=== PATIENT | female | born 1945 | race Caucasian/White ===

== ENCOUNTER 2020-06-05 09:03 | Outpatient (REF) | payer MEDICARE, OTHER, SELFPAY ==
[2020-06-05 10:37] LABS: MANUAL DIFF FLAG NO
[2020-06-05 10:47] LABS: Basophils Absolute Auto 0.1 X10*3/uL (0.0-0.2); Basophils Percent Auto 1.7 % (0-2); Eosinophils Absolute Auto 0.1 X10*3/uL (0.0-0.4); Eosinophils Percent Auto 1.4 % (0-4); Hematocrit 39.7 % (37-47); Hemoglobin 13.1 g/dl (12.0-16.0); Imm Gran Abs Auto 0.01 X10*3/uL (0.00-0.03); Imm Gran Pct Auto 0.2 % (0.0-0.4); Lymphocytes Absolute Auto 1.6 X10*3/uL (1.2-4.9); Mean Corpuscular Hemoglobin 31.6 pg (27.0-33.0); Mean Corpuscular Volume 95.9 fL (80-98); Mean Platelet Volume 10.1 fL (9.4-12.3); Monocytes Absolute Auto 0.4 X10*3/uL (0.1-1.2); Monocytes Percent Auto 7.9 % (2-11); Neutrophils Percent Auto 57.8 % (45-73); Platelet Count 273 X10*3/uL (160-400); Red Blood Count 4.14 X10*6/uL (4.20-5.50); Red Cell Distribution Width 12.4 % (11.0-16.0); White Blood Count 5.2 X10*3/uL (4.8-10.8)
[2020-06-05 10:50] LABS: Estimated Average Glucose 97 mg/dL
[2020-06-05 11:24] LABS: Alanine Aminotransferase 16 U/L (0-31); Albumin Level 3.9 g/dL (3.5-5.0); Alkaline Phosphatase 85 U/L (39-117); Anion Gap 10 (12-20); Aspartate Amino Transferase 25 U/L (5-31); Bilirubin Total 0.6 mg/dL (0.0-1.0); Blood Urea Nitrogen 13 mg/dL (9-16); Calcium 8.6 mg/dL (8.4-10.2); Carbon Dioxide 26 mmol/L (22-29); Chloride 108 mmol/L (96-108); Cholesterol 234 mg/dL; Estimated Glomerular Filt Rate > 60; Glucose Fasting 89 mg/dL (60-99); HDL Cholesterol 66 mg/dL; LDL Cholesterol Calculated 156 mg/dl; Potassium 4.4 mmol/l (3.3-5.1); Sodium 140 mmol/L (135-145); Total Protein 6.5 g/dL (6.5-8.0); Triglycerides 64 mg/dL
[2020-06-05 11:27] LABS: Erythrocyte Sedimentation Rate 6 MM/HR (0-20)
[2020-06-05 11:48] LABS: Folate 19.7 ng/mL (> or = 4.0); Vitamin B12 577 pg/mL (200-900)
== END 2020-06-05 09:04 | disposition home or self-care (01) ==
LOC: HO.LAB 09:03
PROVIDERS: PCP Internal Medicine Medical Oncology; Visit Provider Internal Medicine Medical Oncology
DX: M54.16 Radiculopathy, lumbar region (principal); M85.80 Other specified disorders of bone density and structure, unspecified site; E78.5 Hyperlipidemia, unspecified; I47.1 Supraventricular tachycardia; J45.31 Mild persistent asthma with (acute) exacerbation
CPT/HCPCS: 36415; 80053; 80061; 82607; 82746; 83036; 85025; 85652

== ENCOUNTER 2020-09-10 13:18 | Outpatient (REF) | payer MEDICARE, OTHER, SELFPAY ==
[2020-09-11 04:20] LABS: SARS COV2 IgG Negative (Negative)
== END 2020-09-10 13:19 | disposition home or self-care (01) ==
LOC: HO.LAB 13:18
PROVIDERS: PCP Internal Medicine Medical Oncology; Visit Provider Internal Medicine Medical Oncology
DX: Z01.84 Encounter for antibody response examination (principal)
CPT/HCPCS: 36415; 86769

== ENCOUNTER 2020-09-13 10:00 | Outpatient (REF) | payer MEDICARE, OTHER, SELFPAY ==
[2020-09-13 11:18] LABS: MANUAL DIFF FLAG NO
[2020-09-13 11:32] LABS: Basophils Absolute Auto 0.1 X10*3/uL (0.0-0.2); Basophils Percent Auto 1.4 % (0-2); Eosinophils Absolute Auto 0.1 X10*3/uL (0.0-0.4); Eosinophils Percent Auto 1.4 % (0-4); Hematocrit 42.2 % (37-47); Hemoglobin 13.8 g/dl (12.0-16.0); Imm Gran Abs Auto 0.03 X10*3/uL (0.00-0.03); Imm Gran Pct Auto 0.4 % (0.0-0.4); Lymphocytes Percent Auto 25.4 % (20-40); Mean Corpuscular HGB Conc 32.7 g/dl (31.0-35.0); Mean Corpuscular Hemoglobin 31.3 pg (27.0-33.0); Mean Corpuscular Volume 95.7 fL (80-98); Monocytes Absolute Auto 0.5 X10*3/uL (0.1-1.2); Monocytes Percent Auto 6.2 % (2-11); Neutrophils Absolute Auto 5.2 X10*3/uL (2.0-8.3); Neutrophils Percent Auto 65.2 % (45-73); Platelet Count 333 X10*3/uL (160-400); Red Blood Count 4.41 X10*6/uL (4.20-5.50); Red Cell Distribution Width 11.9 % (11.0-16.0); White Blood Count 7.9 X10*3/uL (4.8-10.8)
[2020-09-13 12:04] LABS: Alanine Aminotransferase 17 U/L (0-31); Alkaline Phosphatase 99 U/L (39-117); Anion Gap 13 (12-20); Aspartate Amino Transferase 24 U/L (5-31); Bilirubin Total 0.6 mg/dL (0.0-1.0); Blood Urea Nitrogen 12 mg/dL (9-16); Calcium 8.9 mg/dL (8.4-10.2); Carbon Dioxide 26 mmol/L (22-29); Chloride 104 mmol/L (96-108); Cholesterol 224 mg/dL; Estimated Glomerular Filt Rate > 60; Glucose Fasting 82 mg/dL (60-99); HDL Cholesterol 58 mg/dL; LDL Cholesterol Calculated 155 mg/dl; Potassium 5.4 mmol/l (3.3-5.1); Sodium 138 mmol/L (135-145); Total Protein 7.1 g/dL (6.5-8.0); Triglycerides 56 mg/dL
== END 2020-09-13 10:01 | disposition home or self-care (01) ==
LOC: HO.LAB 10:00
PROVIDERS: Visit Provider Internal Medicine Medical Oncology
DX: I47.1 Supraventricular tachycardia (principal); M85.80 Other specified disorders of bone density and structure, unspecified site; J45.31 Mild persistent asthma with (acute) exacerbation; E78.5 Hyperlipidemia, unspecified; M54.16 Radiculopathy, lumbar region
CPT/HCPCS: 36415; 80053; 80061; 85025

== ENCOUNTER 2020-09-27 06:28 | Outpatient (REF) | payer MEDICARE, OTHER, SELFPAY ==
--- NOTE | 2020-09-27 | XR_ITS ---
EXAMINATION: XR CHEST CLINICAL INFORMATION: Mild persistent asthma with acute exacerbation COMPARISON: 11/28/2019 TECHNIQUE: 2 views of the chest were obtained. FINDINGS: Lung volumes are symmetric. No focal consolidation bilaterally. Biapical scarring is noted. No evidence of pneumothorax, pleural effusion, or pulmonary edema. The cardiomediastinal contour is unremarkable. No acute osseous findings are seen. XR/XR chest 2V IMPRESSION: No acute cardiopulmonary findings.
== END 2020-09-27 06:29 | disposition home or self-care (01) ==
LOC: HO.XRAY 06:28
PROVIDERS: Visit Provider Internal Medicine Medical Oncology
DX: J45.31 Mild persistent asthma with (acute) exacerbation (principal); R06.02 Shortness of breath
CPT/HCPCS: 71046

== ENCOUNTER 2021-02-19 08:38 | Outpatient (REF) | payer MEDICARE, OTHER, SELFPAY ==
[2021-02-19 09:59] LABS: MANUAL DIFF FLAG NO
[2021-02-19 10:04] LABS: Basophils Absolute Auto 0.1 X10*3/uL (0.0-0.2); Basophils Percent Auto 1.3 % (0-2); Eosinophils Absolute Auto 0.1 X10*3/uL (0.0-0.4); Eosinophils Percent Auto 2.1 % (0-4); Hematocrit 40.6 % (37-47); Imm Gran Abs Auto 0.02 X10*3/uL (0.00-0.03); Imm Gran Pct Auto 0.3 % (0.0-0.4); Lymphocytes Percent Auto 32.9 % (20-40); Mean Corpuscular Hemoglobin 30.1 pg (27.0-33.0); Mean Platelet Volume 10.2 fL (9.4-12.3); Monocytes Absolute Auto 0.5 X10*3/uL (0.1-1.2); Monocytes Percent Auto 8.2 % (2-11); Neutrophils Absolute Auto 3.3 X10*3/uL (2.0-8.3); Neutrophils Percent Auto 55.2 % (45-73); Platelet Count 309 X10*3/uL (160-400); Red Blood Count 4.32 X10*6/uL (4.20-5.50); Red Cell Distribution Width 11.9 % (11.0-16.0); White Blood Count 6.1 X10*3/uL (4.8-10.8)
[2021-02-19 10:30] LABS: Alanine Aminotransferase 11 U/L (0-31); Albumin Level 3.9 g/dL (3.5-5.0); Alkaline Phosphatase 90 U/L (39-117); Anion Gap 11 (12-20); Aspartate Amino Transferase 23 U/L (5-31); Bilirubin Total 0.5 mg/dL (0.0-1.0); Blood Urea Nitrogen 15 mg/dL (9-16); Calcium 9.3 mg/dL (8.4-10.2); Carbon Dioxide 26 mmol/L (22-29); Chloride 108 mmol/L (96-108); Cholesterol 244 mg/dL; Estimated Glomerular Filt Rate > 60; Glucose Fasting 86 mg/dL (60-99); HDL Cholesterol 67 mg/dL; LDL Cholesterol Calculated 166 mg/dl; Sodium 140 mmol/L (135-145); Triglycerides 58 mg/dL
== END 2021-02-19 08:39 | disposition home or self-care (01) ==
LOC: HO.10HDL 08:38
PROVIDERS: PCP Internal Medicine Medical Oncology; Visit Provider Internal Medicine Medical Oncology
DX: E78.5 Hyperlipidemia, unspecified (principal); J45.31 Mild persistent asthma with (acute) exacerbation; M15.3 Secondary multiple arthritis; M54.16 Radiculopathy, lumbar region
CPT/HCPCS: 36415; 80053; 80061; 85025

== ENCOUNTER 2021-09-19 06:54 | Outpatient (REF) | payer MEDICARE, OTHER, SELFPAY ==
[2021-09-19 07:09] LABS: MANUAL DIFF FLAG NO
[2021-09-19 07:39] LABS: Basophils Absolute Auto 0.1 X10*3/uL (0.0-0.2); Basophils Percent Auto 1.1 % (0-2); Eosinophils Absolute Auto 0.2 X10*3/uL (0.0-0.4); Eosinophils Percent Auto 2.4 % (0-4); Hematocrit 41.5 % (37.0-47.0); Hemoglobin 13.6 g/dl (12.0-16.0); Imm Gran Abs Auto 0.02 X10*3/uL (0.00-0.03); Imm Gran Pct Auto 0.3 % (0.0-0.4); Lymphocytes Absolute Auto 2.3 X10*3/uL (1.2-4.9); Lymphocytes Percent Auto 29.2 % (20-40); Mean Corpuscular HGB Conc 32.8 g/dl (31.0-35.0); Mean Corpuscular Hemoglobin 30.7 pg (27.0-33.0); Mean Corpuscular Volume 93.7 fL (80.0-98.0); Monocytes Absolute Auto 0.6 X10*3/uL (0.1-1.2); Monocytes Percent Auto 7.5 % (2-11); Neutrophils Absolute Auto 4.7 x10*3/uL (2.0-8.3); Neutrophils Percent Auto 59.5 % (45-73); Platelet Count 296 X10*3/uL (160-400); Red Blood Count 4.43 X10*6/uL (4.20-5.50); Red Cell Distribution Width 13.2 % (11.0-16.0); White Blood Count 7.8 X10*3/uL (4.8-10.8)
[2021-09-19 08:07] LABS: Alanine Aminotransferase 19 U/L (0-31); Albumin Level 3.7 g/dL (3.5-5.0); Alkaline Phosphatase 101 U/L (39-117); Anion Gap 10 (12-20); Aspartate Amino Transferase 25 U/L (5-31); Bilirubin Total 0.6 mg/dL (0.0-1.0); Blood Urea Nitrogen 13 mg/dL (9-16); Calcium 9.3 mg/dL (8.4-10.2); Carbon Dioxide 27 mmol/L (22-29); Chloride 109 mmol/L (96-108); Cholesterol 233 mg/dL; Estimated Glomerular Filt Rate > 60; Glucose Fasting 88 mg/dL (60-99); HDL Cholesterol 55 mg/dL; LDL Cholesterol Calculated 163 mg/dl; Potassium 5.3 mmol/L (3.3-5.1); Sodium 141 mmol/L (135-145); Triglycerides 75 mg/dL
== END 2021-09-19 06:55 | disposition home or self-care (01) ==
LOC: HO.LAB 06:54
PROVIDERS: PCP Internal Medicine Medical Oncology; Visit Provider Internal Medicine Medical Oncology
DX: E78.5 Hyperlipidemia, unspecified (principal); E66.3 Overweight
CPT/HCPCS: 36415; 80053; 80061; 85025

== ENCOUNTER 2021-12-19 08:59 | Outpatient (REF) | payer MEDICARE, OTHER, SELFPAY ==
[2021-12-19 09:14] LABS: MANUAL DIFF FLAG NO
[2021-12-19 09:51] LABS: Basophils Absolute Auto 0.1 X10*3/uL (0.0-0.2); Basophils Percent Auto 1.6 % (0-2); Eosinophils Absolute Auto 0.1 X10*3/uL (0.0-0.4); Hematocrit 40.5 % (37.0-47.0); Hemoglobin 13.5 g/dl (12.0-16.0); Imm Gran Abs Auto 0.01 X10*3/uL (0.00-0.03); Imm Gran Pct Auto 0.1 % (0.0-0.4); Lymphocytes Absolute Auto 2.1 X10*3/uL (1.2-4.9); Lymphocytes Percent Auto 29.9 % (20-40); Mean Corpuscular HGB Conc 33.3 g/dl (31.0-35.0); Mean Corpuscular Hemoglobin 31.5 pg (27.0-33.0); Mean Corpuscular Volume 94.4 fL (80.0-98.0); Mean Platelet Volume 10.2 fL (9.4-12.3); Monocytes Absolute Auto 0.6 X10*3/uL (0.1-1.2); Monocytes Percent Auto 7.9 % (2-11); Neutrophils Absolute Auto 4.1 x10*3/uL (2.0-8.3); Neutrophils Percent Auto 58.5 % (45-73); Platelet Count 264 X10*3/uL (160-400); Red Blood Count 4.29 X10*6/uL (4.20-5.50); Red Cell Distribution Width 12.3 % (11.0-16.0); White Blood Count 7.1 X10*3/uL (4.8-10.8)
[2021-12-19 10:26] LABS: Alanine Aminotransferase 26 U/L (0-31); Albumin Level 3.8 g/dL (3.5-5.0); Alkaline Phosphatase 97 U/L (39-117); Anion Gap 11 (12-20); Aspartate Amino Transferase 29 U/L (5-31); Bilirubin Total 0.3 mg/dL (0.0-1.0); Blood Urea Nitrogen 15 mg/dL (9-16); Calcium 9.5 mg/dL (8.4-10.2); Carbon Dioxide 26 mmol/L (22-29); Chloride 106 mmol/L (96-108); Cholesterol 225 mg/dL; Estimated Glomerular Filt Rate > 60; Glucose Fasting 82 mg/dL (60-99); HDL Cholesterol 57 mg/dL; LDL Cholesterol Calculated 151 mg/dl; Sodium 138 mmol/L (135-145); Triglycerides 85 mg/dL
== END 2021-12-19 09:00 | disposition home or self-care (01) ==
LOC: HO.LAB 08:59
PROVIDERS: PCP Internal Medicine Medical Oncology; Visit Provider Internal Medicine Medical Oncology
DX: E78.5 Hyperlipidemia, unspecified (principal); E66.3 Overweight
CPT/HCPCS: 36415; 80053; 80061; 85025

== ENCOUNTER 2022-03-27 10:23 | Outpatient (REF) | payer MEDICARE, OTHER, SELFPAY ==
--- NOTE | ~2022-03-27 | XR_ITS ---
EXAMINATION: XR RIBS, RIGHT CLINICAL INFORMATION: Chest injury COMPARISON: 09/27/2020 TECHNIQUE: 3 views of the right ribs were obtained. AP chest FINDINGS: Lungs are clear. No consolidation, pneumothorax, or pleural effusion. The cardiomediastinal silhouette and pulmonary vasculature are normal. Osseous structures are unremarkable. Ribs are intact. No fractures are identified. XR/XR ribs RT min 3V w CXR1V IMPRESSION: Unremarkable examination.
== END 2022-03-27 10:24 | disposition home or self-care (01) ==
LOC: HO.HMGCX 10:23
PROVIDERS: PCP Internal Medicine Medical Oncology; Visit Provider Internal Medicine
DX: R07.1 Chest pain on breathing (principal); R07.81 Pleurodynia; S29.9XXA Unspecified injury of thorax, initial encounter; X58.XXXA Exposure to other specified factors, initial encounter; Y93.9 Activity, unspecified; Y92.9 Unspecified place or not applicable; Y99.9 Unspecified external cause status
CPT/HCPCS: 71101

== ENCOUNTER 2022-07-31 06:36 | Outpatient (REF) | payer MEDICARE, OTHER, SELFPAY ==
[2022-07-31 06:46] LABS: MANUAL DIFF FLAG NO
[2022-07-31 07:34] LABS: Basophils Absolute Auto 0.1 X10*3/uL (0.0-0.2); Basophils Percent Auto 1.5 % (0-2); Eosinophils Absolute Auto 0.1 X10*3/uL (0.0-0.4); Eosinophils Percent Auto 2.1 % (0-4); Hematocrit 40.6 % (37.0-47.0); Imm Gran Abs Auto 0.02 X10*3/uL (0.00-0.03); Imm Gran Pct Auto 0.3 % (0.0-0.4); Lymphocytes Absolute Auto 2.6 X10*3/uL (1.2-4.9); Mean Corpuscular Volume 96.9 fL (80.0-98.0); Mean Platelet Volume 10.1 fL (9.4-12.3); Monocytes Absolute Auto 0.5 X10*3/uL (0.1-1.2); Monocytes Percent Auto 7.4 % (2-11); Neutrophils Absolute Auto 3.3 x10*3/uL (2.0-8.3); Neutrophils Percent Auto 49.7 % (45-73); Platelet Count 317 X10*3/uL (160-400); Red Blood Count 4.19 X10*6/uL (4.20-5.50); Red Cell Distribution Width 12.8 % (11.0-16.0); White Blood Count 6.6 X10*3/uL (4.8-10.8)
[2022-07-31 08:25] LABS: Alanine Aminotransferase 16 U/L (0-31); Albumin Level 3.9 g/dL (3.5-5.0); Alkaline Phosphatase 96 U/L (39-117); Aspartate Amino Transferase 25 U/L (5-31); Bilirubin Total 0.4 mg/dL (0.0-1.0); Blood Urea Nitrogen 13 mg/dL (9-16); Calcium 9.2 mg/dL (8.4-10.2); Cholesterol 233 mg/dL; Estimated Glomerular Filt Rate > 60; Glucose Fasting 88 mg/dL (60-99); HDL Cholesterol 54 mg/dL; LDL Cholesterol Calculated 165 mg/dl; Total Protein 6.8 g/dL (6.5-8.0); Triglycerides 74 mg/dL; Vitamin D 25-OH Total 53.4 ng/mL (>30)
[2022-07-31 08:36] LABS: Anion Gap 10 (12-20); Carbon Dioxide 27 mmol/L (22-29); Chloride 105 mmol/L (96-108); Potassium 4.2 mmol/L (3.3-5.1); Sodium 138 mmol/L (135-145)
== END 2022-07-31 06:37 | disposition home or self-care (01) ==
LOC: HO.LAB 06:36
PROVIDERS: Visit Provider Internal Medicine Medical Oncology
DX: Z00.00 Encounter for general adult medical examination without abnormal findings (principal); I47.1 Supraventricular tachycardia; E78.5 Hyperlipidemia, unspecified; E55.9 Vitamin D deficiency, unspecified
CPT/HCPCS: 36415; 80053; 80061; 82306; 85025

== ENCOUNTER 2022-12-06 07:13 | Outpatient (REF) | payer MEDICARE, OTHER, SELFPAY ==
[2022-12-06 07:23] LABS: MANUAL DIFF FLAG NO
[2022-12-06 07:32] LABS: Basophils Absolute Auto 0.1 X10*3/uL (0.0-0.2); Basophils Percent Auto 1.5 % (0-2); Eosinophils Absolute Auto 0.2 X10*3/uL (0.0-0.4); Eosinophils Percent Auto 2.8 % (0-4); Hematocrit 35.3 % (37.0-47.0); Hemoglobin 11.5 g/dl (12.0-16.0); Imm Gran Abs Auto 0.02 X10*3/uL (0.00-0.03); Imm Gran Pct Auto 0.4 % (0.0-0.4); Lymphocytes Absolute Auto 1.9 X10*3/uL (1.2-4.9); Lymphocytes Percent Auto 35.8 % (20-40); Mean Corpuscular HGB Conc 32.6 g/dl (31.0-35.0); Mean Corpuscular Hemoglobin 30.3 pg (27.0-33.0); Mean Corpuscular Volume 92.9 fL (80.0-98.0); Mean Platelet Volume 9.3 fL (9.4-12.3); Monocytes Absolute Auto 0.5 X10*3/uL (0.1-1.2); Monocytes Percent Auto 8.8 % (2-11); Neutrophils Absolute Auto 2.7 x10*3/uL (2.0-8.3); Neutrophils Percent Auto 50.7 % (45-73); Platelet Count 279 X10*3/uL (160-400); Red Cell Distribution Width 13.2 % (11.0-16.0); White Blood Count 5.4 X10*3/uL (4.8-10.8)
[2022-12-06 09:04] LABS: Alanine Aminotransferase 15 U/L (0-31); Albumin Level 3.5 g/dL (3.5-5.0); Alkaline Phosphatase 93 U/L (39-117); Anion Gap 10 (12-20); Aspartate Amino Transferase 26 U/L (5-31); Bilirubin Total 0.4 mg/dL (0.0-1.0); Blood Urea Nitrogen 9 mg/dL (9-16); Calcium 8.6 mg/dL (8.4-10.2); Carbon Dioxide 26 mmol/L (22-29); Chloride 110 mmol/L (96-108); Cholesterol 203 mg/dL; Estimated Glomerular Filt Rate > 60; Glucose Fasting 98 mg/dL (60-99); HDL Cholesterol 57 mg/dL; LDL Cholesterol Calculated 137 mg/dl; Potassium 4.4 mmol/L (3.3-5.1); Sodium 142 mmol/L (135-145); Total Protein 6.2 g/dL (6.5-8.0); Triglycerides 49 mg/dL
== END 2022-12-06 07:14 | disposition home or self-care (01) ==
LOC: HO.LAB 07:13
PROVIDERS: PCP Internal Medicine Medical Oncology; Visit Provider Internal Medicine Medical Oncology
DX: E66.3 Overweight (principal)
CPT/HCPCS: 36415; 80053; 80061; 85025

== ENCOUNTER 2022-12-30 06:48 | Outpatient (REF) | payer MEDICARE, OTHER, SELFPAY ==
[2022-12-30 06:53] LABS: MANUAL DIFF FLAG NO
[2022-12-30 07:35] LABS: Basophils Absolute Auto 0.1 X10*3/uL (0.0-0.2); Basophils Percent Auto 1.5 % (0-2); Eosinophils Absolute Auto 0.2 X10*3/uL (0.0-0.4); Eosinophils Percent Auto 2.9 % (0-4); Hematocrit 37.7 % (37.0-47.0); Hemoglobin 11.8 g/dl (12.0-16.0); Imm Gran Abs Auto 0.01 X10*3/uL (0.00-0.03); Imm Gran Pct Auto 0.2 % (0.0-0.4); Lymphocytes Absolute Auto 2.2 X10*3/uL (1.2-4.9); Lymphocytes Percent Auto 37.5 % (20-40); Mean Corpuscular HGB Conc 31.3 g/dl (31.0-35.0); Mean Corpuscular Hemoglobin 29.1 pg (27.0-33.0); Mean Corpuscular Volume 93.1 fL (80.0-98.0); Mean Platelet Volume 10.2 fL (9.4-12.3); Monocytes Absolute Auto 0.6 X10*3/uL (0.1-1.2); Monocytes Percent Auto 9.6 % (2-11); Neutrophils Absolute Auto 2.8 x10*3/uL (2.0-8.3); Neutrophils Percent Auto 48.3 % (45-73); Platelet Count 308 X10*3/uL (160-400); Red Blood Count 4.05 X10*6/uL (4.20-5.50); Red Cell Distribution Width 12.7 % (11.0-16.0); White Blood Count 5.8 X10*3/uL (4.8-10.8)
== END 2022-12-30 06:49 | disposition home or self-care (01) ==
LOC: HO.LAB 06:48
PROVIDERS: PCP Internal Medicine Medical Oncology; Visit Provider Internal Medicine Medical Oncology
DX: R71.0 Precipitous drop in hematocrit (principal)
CPT/HCPCS: 36415; 85025

== ENCOUNTER → 2022-12-31 09:45 | Outpatient (REF) | payer MEDICARE, OTHER, SELFPAY ==
--- NOTE | 2022-12-31 09:49 | HM_ITS ---
Conclusion: 1. Patient was monitored for total period of 1 day and 23 hours 2. Poor baseline noted in the initial part of the study which improved later on. 3. Baseline was normal sinus rhythm with average heart of 74 beats per minute 4. Total of 34,000 PACs accounting for 16.3% of total beats account for frequent PACs with very frequent short episodes of SVT, longest lasting 10 beats and the fastest at 160 beats per minute. 5. Occasional PVCs noted 6. No patient reported events MTDD
== END ==
LOC: HO.CARD 09:45
PROVIDERS: Visit Provider Internal Medicine Medical Oncology
DX: I48.91 Unspecified atrial fibrillation (principal)
CPT/HCPCS: 93225

== ENCOUNTER 2023-03-18 19:27 | Emergency (ER) | payer MEDICARE, OTHER, SELFPAY ==
--- NOTE | ~2023-03-18 | CT_ITS ---
EXAMINATION: CT ANGIOGRAM OF THE HEAD AND NECK CLINICAL INFORMATION: Right-sided weakness. COMPARISON: CT scan of the head 03/18/2023. TECHNIQUE: Base Manager images were obtained. A CT angiogram of the head and neck was performed in the arterial phase after the intravenous administration of 50 mL Omnipaque 350. Pre and delayed postcontrast images of the head were also obtained. 3D images were processed on an independent workstation under concurrent supervision. Arterial stenoses are measured in accordance with NASCET criteria or similar method if applicable. This CT examination was performed using dose optimization techniques as appropriate, including one or more of the following: Automated exposure control, iterative reconstruction, and adjustment of technique factors (mA and/or kVp) according to patient size (this includes techniques or standardized protocols for targeted exams where dose is matched to indication/reason for exam). Fleischner Society criteria for the followup of incidental pulmonary nodules was implemented if appropriate. Total exam dose-length product 1514 mGy-cm FINDINGS: Head: Postcontrast images reveal no abnormal intracranial mass or enhancement. There is no intracranial mass effect or midline shift. Lateral and third ventricles are normal. No hydrocephalus. Ortega-white matter differentiation is preserved and there is no evidence of acute territorial infarct of this time. The calvarium and skull base are intact. Mastoid air cells and middle ear cavities are well aerated. No active paranasal sinus disease. Globes and orbits are symmetric. CT angiogram neck: The aortic arch apex is normal. Origins of the major aortic branches are patent. Common carotid arteries and carotid bifurcations are normal. No stenosis of the extracranial internal carotid arteries. The cervical segments of the vertebral arteries are patent. CT angiogram head: There is an occlusive thrombus extending from the tip of the basilar artery into the distal P1 segment of the left posterior cerebral artery best depicted on coronal MIP image 44 of 77 series 11. There is reconstitution of contrast filling the P2 segment of the left posterior cerebral artery, presumably secondary to collateral flow via the posterior communicating artery which is a relatively small. The vertebrobasilar system and the posterior cerebral artery complexes are otherwise unremarkable. Intracranial internal carotid arteries are patent. Anterior and middle cerebral artery complexes are normal. Other: There is a multinodular thyroid gland. The dominant nodule at the lower pole of the left thyroid lobe that measures 1.6 cm in diameter. No pathologically enlarged cervical lymph nodes. There is pleural-parenchymal scarring at the apices of both lungs. There is multilevel degenerative spondylosis of the cervical spine. Grossly no spinal canal compromise. CT/CT angio head neck stroke IMPRESSION: There is an occlusive thrombus extending from the tip of the basilar artery into the distal P1 segment of the left posterior cerebral artery. There is reconstitution of contrast filling the P2 segment of the left posterior cerebral artery, presumably secondary to collateral flow via the posterior communicating artery which is a relatively small. Otherwise no intracranial large vessel occlusion elsewhere within the intracranial arterial anatomy. No stenosis of the cervical carotid or vertebral arteries. No evidence of acute territorial infarct at this time. No acute hemorrhage. No abnormal intracranial mass or enhancement. This critical result was discussed with Shane Mcgill at 10:08 PM on 03/18/2023 and it was ascertained that the content and urgency of the report was understood at the time of direct communication.
--- NOTE | ~2023-03-18 | CT_ITS ---
EXAMINATION: CT HEAD WITHOUT CONTRAST CLINICAL INFORMATION: Headache, dizziness, vision change. COMPARISON: None TECHNIQUE: Contiguous axial imaging was performed from the skull base to vertex without intravenous administration of contrast. This CT examination was performed using dose optimization techniques as appropriate, variously including the following: *Automated exposure control *Adjustment of mA and/or kV according to patient size (this includes techniques or standardized protocols for targeted exams where dose is matched to indication/reason for exam; i.e. extremities or head) *Use of iterative reconstruction technique DLP: 657 mGy-cm FINDINGS: There is no evidence of acute intracranial hemorrhage or edematous territorial infarction. A few foci of hypoattenuation in the periventricular and deep white matter are consistent with mild microangiopathy. Ortega-white matter differentiation is preserved. Proportional prominence of the ventricles and sulcal spaces. No evidence for obstructive hydrocephalus. No abnormal mass effect or midline shift. No extra-axial fluid collections. No acute soft tissue or osseous abnormalities. The mastoid air cells and paranasal sinuses are clear. CT/CT head/brain wo IV con IMPRESSION: No evidence of acute intracranial hemorrhage or edematous territorial infarction.
[2023-03-18 20:06] VITALS: BP 161/71; PULSE 76; RESP 18; TEMP 36.3; O2SAT 99; BMI 23.6
--- NOTE | 2023-03-18 20:08 | ED.HA ---
HPI - Headache General Chief Complaint: General Medical Stated Complaint: dizziness/double vision Time Seen by Provider: 03/18/23 20:55 Source: patient, family (Patient's daughters), RN notes reviewed and old records reviewed Mode of arrival: EMS Limitations: altered mental status History of Present Illness HPI Narrative: 77-year-old female presents for evaluation of posterior headache. Per the patient's daughters and the patient, they report that she was well up until about 6:00 p.m. this afternoon She felt a sudden onset of posterior headache and she reports that her right leg was ?twitching. ? Family states the patient has had on and off difficulties with speaking clearly When she initially presented to the emergency department she was able to move all of her extremities and did not have any facial droop At approximately 8:30 p.m. family noted that there was a change in the mental status and the patient was not speaking clearly, had a facial droop and was not moving her right arm. A stroke protocol was called at this time and angiographies of that neck and brain were added on to the previously ordered CT brain Related Data Home Medications Medication Instructions Recorded Confirmed atenolol 25 mg tablet 25 mg PO BID 03/27/22 03/27/22 cyclobenzaprine 10 mg tablet 10 mg PO BEDTIME 03/27/22 03/27/22 Previous Rx's Medication Instructions Recorded oxycodone 5 mg tablet 5 mg PO BID PRN pain 7 days #14 03/27/22 tabs Allergies Allergy/AdvReac Type Severity Reaction Status Date / Time No Known Allergies Allergy Mild NOT Unverified 03/27/22 10:03 APPLICABLE Review of Systems Constitutional: Constitutional: Reports weakness Eyes: Eyes: Reports diplopia ENT: Reports disequilibrium Neurologic: Reports Neuro-related abnormal movements, Reports Abnormal speech present, Reports confusion, Reports focal weakness, Reports disequilibrium and Reports weakness Psychiatric: Psychiatric: Reports confusion PMFSH Social History Social History Alcohol intake: former Smoked in Last 30 Days: No Use of substances other than those prescribed or required for medical reasons: No Advance Directives: No Advance Directives Information Provided: No Physical Exam Vital Signs: Vital Signs: Last Vital Signs Temp 97.3 F 03/18/23 20:06 Pulse 75 03/18/23 22:48 Resp 14 03/18/23 22:48 BP 152/78 H 03/18/23 22:48 Pulse Ox 97 03/18/23 22:48 O2 Del Method Room Air 03/18/23 22:48 BMI result Body Mass Index 23.6 Const: General: confusion Nutritional Appearance: well nourished Orientation/consciousness: confusion HEENT: Head: Yes normocephalic and Yes atraumatic Eyes: Eyelids: Yes eyelids normal Conjunctivae: conjunctivae normal Sclerae: sclerae normal Corneas: corneas normal Pupils: Equal, round and reactive pupils present EOM: EOMs intact bilaterally Resp: Effort & Inspection: normal respiratory effort, able to speak in complete sentences, no audible wheezes and not labored Auscultation: clear to auscultation bilaterally Skin: General skin exam: no rashes or lesions noted and elasticity normal Neuro: Other: 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 with facial droop and difficulty shrugging her shoulders General: confusion and Unable to assess gait Cranial nerves: Yes Equal, round and reactive pupils present, Yes Bilaterally intact EOM present and No Ability to bilaterally elevate shoulders present (Patient has difficulty shrugging her right shoulder) Cognition (Neuro): normal cognition Speech: Abnormal speech present Gait exam (Neuro): Unable to assess gait Motor exam (neuro): Pronator motor function not present (Mild pronator drift on right) NIH Stroke Scale Internal: Initial- Upon Arrival Time: 21:27 Level of Consciousness: Alert Level of Consciousness Questions: Answers both questions correctly Level of Consciousness Commands: Performs both tasks correctly Best Gaze: Normal Visual: No visual loss Facial Palsy: Minor paralyis Motor Arm (Right): Drift Motor Arm (Left): No drift Motor Leg (Right): No drift Motor Leg (Left): No drift Limb Ataxia: Absent Sensory: Normal Best Language: No aphasia Dysarthia: Normal Extinction and Inattention: No abnormality Score: 2 Course Course Course Narrative: RME - 77 yo female with HTN, paroxysmal afib not on anticoagulation (follow w/ cardiology) who presents to the ER for evaluation of acute onset of severe posterior headache, dizziness and new onset double vision that started 1 hour ago. Daughter reports some word finding difficulty. Plan: CT head, labs, EKG, to be brought to treatment room Reevaluation(s) Reevaluation #1: Received call from [facility], the patient does have a large vessel occlusion of the P1 segment of the last posterior cerebellar artery. The patient does have a small collateral blood vessel. On re-evaluation the patient still has a NIH stroke score of 2. Family states that she has had continued changes with her speech that are coming and going. The patient reports that she understands and is still coherent. Will discussed with [facility] transfer line for neural vascular interventionalist. I spoke to our Radiology Department to ask them to upload all the patient's images to [facility] and make a disc for transfer. Time: 22:16 Reevaluation #2: Discussed with the [facility] transfer Line who will attempt to connect me to a neurovascular interventionalist at [facility]. Time: 22:20 Reevaluation #3: I spoke to Dr. Wilson, neurovascular interventionalist at [facility]. The patient will be accepted to [facility] ED to ED transfer. I updated the patient. I again evaluated the patient and her symptoms are unchanged. Family states that the patient is having intermittent dysarthria which I cannot appreciate on exam Time: 22:41 Additional Reevaluation(s): 22:48. Spoke to Dr. Stubbs a 2nd time, given that the patient's NIH stroke score is still a 2, he recommends a full-dose aspirin but no tPA at this time. He agrees with transfer to tertiary facility. Medications Administered Discontinued Medications Generic Name Dose Route Start Last Admin Trade Name Freq PRN Reason Stop Dose Admin Acetaminophen 975 mg 03/18/23 21:56 03/18/23 22:45 Acetaminophen 325 Mg Tablet PO 03/18/23 21:57 975 mg ONCE ONE Administration Iohexol 100 ml 03/18/23 21:23 03/18/23 21:24 Iohexol 350 Mg/Ml 100 Ml Infus..Btl IV 03/18/23 21:24 70 ml ONCE ONE Administration Medical Decision Making Medical Decision Making MDM Narrative: Patient has findings consistent CVA. When she initially presented to the ER, sounds like she had a stroke score of 0. The patient's symptoms worsen some time between when she was triaged and when I evaluate her. At the time of my evaluation which is approximately 2114. The patient seemed to have a change in mentation status from what was reported as her baseline. At this time CT angiography of head and neck was ordered. I placed a call to Neurology, Dr. Stubbs who recommended no tPA at this time. Differential Diagnosis CVA TIA Vertigo Orthostasis Consult Healthcare Provider Management of the patient was discussed with: Ping Pong Table Assembler (Dr. Stubbs, neurology x2. Dr Wilson neurovascular interventionalist at [facility]) Lab Data MDM Lab Attestation statement: I reviewed the patient's lab results. (Mild anemia, normal clotting factors, normal platelets.) 03/18/23 20:23 03/18/23 20:23 Labs: Lab Results 03/18/23 03/18/23 03/18/23 Range/Units 20:23 20:23 21:28 WBC 7.2 (4.8-10.8) X10*3/uL RBC 4.14 L (4.20-5.50) X10*6/uL Hgb 11.2 L (12.0-16.0) g/dl Hct 34.9 L (37.0-47.0) % MCV 84.3 (80.0-98.0) fL MCH 27.1 (27.0-33.0) pg MCHC 32.1 (31.0-35.0) g/dl RDW 14.2 (11.0-16.0) % Plt Count 287 (160-400) X10*3/uL MPV 10.4 (9.4-12.3) fL Immature Gran % (Auto) 0.1 (0.0-0.4) % Neut % (Auto) 52.5 (45-73) % Lymph % (Auto) 36.0 (20-40) % [place] % (Auto) 7.9 (2-11) % Eos % (Auto) 2.4 (0-4) % Baso % (Auto) 1.1 (0-2) % Lymph # (Auto) 2.6 (1.2-4.9) X10*3/uL [place] # (Auto) 0.6 (0.1-1.2) X10*3/uL Eos # (Auto) 0.2 (0.0-0.4) X10*3/uL Baso # (Auto) 0.1 (0.0-0.2) X10*3/uL Abs Immat Gran (auto) 0.01 (0.00-0.03) X10*3/uL Absolute Neuts (auto) 3.8 (2.0-8.3) x10*3/uL Absolute Nucleated RBC 0.000 (0.0-0.012) X10*3/uL Nucleated RBC % (auto) 0.0 (0.0-0.2) /100WBC PT (10.0-13.1) SEC Whole Blood PT (11.1-13.5) sec INR (0.9-1.1) Whole Blood INR (0.9-1.1) APTT (26.0-36.4) SEC Sodium 138 (135-145) mmol/L Potassium 4.5 (3.3-5.1) mmol/L Chloride 106 (96-108) mmol/L Carbon Dioxide 23 (22-29) mmol/L Anion Gap TNP BUN 19 H (9-16) mg/dL Creatinine 0.81 (0.5-1.4) mg/dL Estim Creat Clear Calc 54.0 Estimated GFR > 60 POC Glucose 95 (60-115) mg/dL Random Glucose 91 (60-115) mg/dL Calcium 9.1 (8.4-10.2) mg/dL Magnesium 2.0 (1.6-2.6) mg/dL Total Bilirubin 0.3 (0.0-1.0) mg/dL Direct Bilirubin 0.1 (0.0-0.5) mg/dL AST 38 H (5-31) U/L ALT 24 (0-31) U/L Alkaline Phosphatase 116 (39-117) U/L Total Protein 7.4 (6.5-8.0) g/dL Albumin 3.9 (3.5-5.0) g/dL 03/18/23 03/18/23 Range/Units 21:28 21:46 WBC (4.8-10.8) X10*3/uL RBC (4.20-5.50) X10*6/uL Hgb (12.0-16.0) g/dl Hct (37.0-47.0) % MCV (80.0-98.0) fL MCH (27.0-33.0) pg MCHC (31.0-35.0) g/dl RDW (11.0-16.0) % Plt Count (160-400) X10*3/uL MPV (9.4-12.3) fL Immature Gran % (Auto) (0.0-0.4) % Neut % (Auto) (45-73) % Lymph % (Auto) (20-40) % [place] % (Auto) (2-11) % Eos % (Auto) (0-4) % Baso % (Auto) (0-2) % Lymph # (Auto) (1.2-4.9) X10*3/uL [place] # (Auto) (0.1-1.2) X10*3/uL Eos # (Auto) (0.0-0.4) X10*3/uL Baso # (Auto) (0.0-0.2) X10*3/uL Abs Immat Gran (auto) (0.00-0.03) X10*3/uL Absolute Neuts (auto) (2.0-8.3) x10*3/uL Absolute Nucleated RBC (0.0-0.012) X10*3/uL Nucleated RBC % (auto) (0.0-0.2) /100WBC PT 11.4 (10.0-13.1) SEC Whole Blood PT 12.8 (11.1-13.5) sec INR 1.0 (0.9-1.1) Whole Blood INR 1.1 (0.9-1.1) APTT 29.0 (26.0-36.4) SEC Sodium (135-145) mmol/L Potassium (3.3-5.1) mmol/L Chloride (96-108) mmol/L Carbon Dioxide (22-29) mmol/L Anion Gap BUN (9-16) mg/dL Creatinine (0.5-1.4) mg/dL Estim Creat Clear Calc Estimated GFR POC Glucose (60-115) mg/dL Random Glucose (60-115) mg/dL Calcium (8.4-10.2) mg/dL Magnesium (1.6-2.6) mg/dL Total Bilirubin (0.0-1.0) mg/dL Direct Bilirubin (0.0-0.5) mg/dL AST (5-31) U/L ALT (0-31) U/L Alkaline Phosphatase (39-117) U/L Total Protein (6.5-8.0) g/dL Albumin (3.5-5.0) g/dL Radiology Impression Discussion of test interpretation with radiology: I have reviewed the radiologist's reading. Radiologist Impression: Occlusive thrombus of the left P1 segment of the posterior cerebral artery Independent Historian Clinical information obtained from an independent historian. History obtained from or confirmed by: Spouse and Other (Patient's daughters) External Record Review External record reviewed: Inpatient record Critical Care Time Critical Care Time Critical Care Time: Yes Total Critical Care Time: 120 Attestation: Patient multiple re-evaluations, advanced imaging, consultations with Neurology x2. Discussion with [facility]. Consultation with outside hospital neuro interventionalist. Consideration for tPA which was ultimately not given. Discharge Plan Discharge Clinical Impression: Acute ischemic left posterior cerebral artery (ENGINEERING TEAM SUPERVISOR) stroke Patient Disposition: [facility] Hospital Transfer Details: [facility] Emergency Department Prescriptions: No Action atenolol 25 mg tablet 25 mg PO BID cyclobenzaprine 10 mg tablet 10 mg PO BEDTIME oxycodone 5 mg tablet 5 mg PO BID PRN (Reason: pain) 7 Days Qty: 14 0RF Rx Instructions: Partial Fill upon patient request.
--- NOTE | 2023-03-18 20:10 | ECG_ITS ---
Test Reason : GENERAL MED Blood Pressure : / mmHG Vent. Rate : 067 BPM Atrial Rate : 067 BPM P-R Int : 188 ms QRS Dur : 080 ms QT Int : 404 ms P-R-T Axes : 060 -19 026 degrees QTc Int : 426 ms Sinus rhythm with marked sinus arrhythmia Otherwise normal ECG When compared with ECG of 28-NOV-2019 17:23, Premature atrial complexes are no longer Present Vent. rate has decreased BY 33 BPM Referred By: Adelina Valle Electronically Signed By:Tha Flores
[2023-03-18 20:28] LABS: MANUAL DIFF FLAG NO
[2023-03-18 20:33] LABS: Basophils Absolute Auto 0.1 X10*3/uL (0.0-0.2); Basophils Percent Auto 1.1 % (0-2); Eosinophils Absolute Auto 0.2 X10*3/uL (0.0-0.4); Eosinophils Percent Auto 2.4 % (0-4); Hematocrit 34.9 % (37.0-47.0); Hemoglobin 11.2 g/dl (12.0-16.0); Imm Gran Abs Auto 0.01 X10*3/uL (0.00-0.03); Imm Gran Pct Auto 0.1 % (0.0-0.4); Lymphocytes Absolute Auto 2.6 X10*3/uL (1.2-4.9); Mean Corpuscular HGB Conc 32.1 g/dl (31.0-35.0); Mean Corpuscular Hemoglobin 27.1 pg (27.0-33.0); Mean Corpuscular Volume 84.3 fL (80.0-98.0); Mean Platelet Volume 10.4 fL (9.4-12.3); Monocytes Absolute Auto 0.6 X10*3/uL (0.1-1.2); Monocytes Percent Auto 7.9 % (2-11); Neutrophils Absolute Auto 3.8 x10*3/uL (2.0-8.3); Neutrophils Percent Auto 52.5 % (45-73); Platelet Count 287 X10*3/uL (160-400); Red Blood Count 4.14 X10*6/uL (4.20-5.50); Red Cell Distribution Width 14.2 % (11.0-16.0); White Blood Count 7.2 X10*3/uL (4.8-10.8)
--- NOTE | 2023-03-18 20:37 | MHC.EDTECH ---
EKG IS DELAYED DUE TO PATIENT IN CAT SCAN
[2023-03-18 20:52] LABS: Alanine Aminotransferase 24 U/L (0-31); Albumin Level 3.9 g/dL (3.5-5.0); Alkaline Phosphatase 116 U/L (39-117); Aspartate Amino Transferase 38 U/L (5-31); Bilirubin Direct 0.1 mg/dL (0.0-0.5); Bilirubin Total 0.3 mg/dL (0.0-1.0); Blood Urea Nitrogen 19 mg/dL (9-16); Calcium 9.1 mg/dL (8.4-10.2); Chloride 106 mmol/L (96-108); Estimated Glomerular Filt Rate > 60; Glucose Random 91 mg/dL (60-115); Potassium 4.5 mmol/L (3.3-5.1); Sodium 138 mmol/L (135-145); Total Protein 7.4 g/dL (6.5-8.0)
[2023-03-18] MEDS: iohexoL 350 MG/ML 100 ML INFUS..BTL IV (21:24)
[2023-03-18 21:32] LABS: Glucose, Whole Blood 95 mg/dL (60-115)
[2023-03-18 21:37] LABS: Prothrombin Time Whole Bld POC 12.8 sec (11.1-13.5); ~PT, ~INR - Anti Coag Clinic 1.1 (0.9-1.1)
[2023-03-18 21:41] LABS: Carbon Dioxide 23 mmol/L (22-29)
[2023-03-18 22:09] LABS: Prothrombin Time 11.4 SEC (10.0-13.1)
[2023-03-18] MEDS: Acetaminophen 325 MG TABLET 975 MG PO (22:45)
[2023-03-18 22:48] VITALS: BP 152/78; PULSE 75; RESP 14; O2SAT 97
--- NOTE | 2023-03-18 23:14 | MHC.STROKE ---
03/18/231926 WALK-IN, ONSET OF SYMPTOMS 1800 WITH SOME STUTTERING SYMPTOMS CHANGES AT 2030. 2126 STROKE PROTOCOL ACTIVATED. CTA H/N DONE REPORT 2207 BASILAR ARTERY OCCLUSION. 2240 I SPOKE WITH ED PROVIDER REPORTED HIS NIHSS = 2, AT [address] SUN, SEE ED NOTES. EXCLUDED FROM TPA-THROMBLYTICS, LOW NIHSS, RECOMMENDED ANTIPLATELET AND AGREES WITH TRANSFER TO TERTIARY FACILITY.
[2023-03-18] MEDS: Aspirin 81 MG TAB.CHEW 324 MG PO (23:15)
--- NOTE | 2023-03-18 23:31 | MHC.EDTECH ---
Call out to [facility] @ 1298 to book ALS transport to [facility] ED. ETA of 30 mins
--- NOTE | 2023-03-18 23:33 | PC.NURSE ---
pt PASS swallow eval - swallowed tylenol and aspirin with water no issues no difficulty swallowing
--- NOTE | 2023-03-18 23:38 | PC.NURSE ---
nurse to nurse report called to [facility] ED @23:35
[2023-03-18 23:41] VITALS: BP 141/81; PULSE 60; RESP 18; TEMP 36.6; O2SAT 98
--- NOTE | 2023-03-18 23:42 | MHC.EDTECH ---
This tech assumed care of patient at 2300, Hourly rounding completed and vitals were updated, Patient is waiting for a ambulance at this time, being transferred to [facility]. Family at bedside and call olvera within reach.
[2023-03-18 23:50] LABS: Appearance Urine Clear; Color Urine Yellow; Glucose Urine UA Negative (Negative); Leukocyte Esterase Urine Moderate (2+) (Negative); Nitrite Urine Negative (Negative); Specific Gravity - Urine <= 1.005 (1.005-1.025); UMIC TRIGGER UACC YES; Urine Blood Negative (Negative); Urine Ketones Negative (Negative); Urine Protein Negative (Neg-Trace)
[2023-03-19 00:05] LABS: Bacteria Urine Trace (None Seen); RBC Urine 0-2 /HPF (0-2); Squamous Epithelial Cell Urine 0-2 /HPF (0-2); WBC Urine 0-5 /HPF (0-5)
[2023-03-19 00:06] LABS: Hyaline Casts Urine 0-2 /LPF (0-2)
== END 2023-03-19 00:08 | disposition short-term general hospital (02) ==
PROVIDERS: Physician Assistant; Emergency Provider Emergency Medicine; PCP Internal Medicine Medical Oncology
DX: I63.532 Cerebral infarction due to unspecified occlusion or stenosis of left posterior cerebral artery (principal); G81.94 Hemiplegia, unspecified affecting left nondominant side; R29.810 Facial weakness; H53.2 Diplopia; R29.702 NIHSS score 2; I10 Essential (primary) hypertension; I48.0 Paroxysmal atrial fibrillation
CPT/HCPCS: 36415; 70450; 70496; 70498; 80048; 80076; 81001; 81003; 82947; 83735; 85025; 85610; 85730; 93005; 99284; 99285; Q9967

== ENCOUNTER → 2023-03-18 20:10 | Outpatient (BNV) | payer MEDICARE, OTHER, SELFPAY | PROVIDERS: Emergency Provider Emergency Medicine; PCP Internal Medicine Medical Oncology; Visit Provider Internal Medicine Cardiovascular Disease | DX: I49.9 Cardiac arrhythmia, unspecified (principal) | CPT/HCPCS: 93010 ==

== ENCOUNTER 2023-04-25 07:02 | Outpatient (REF) | payer MEDICARE, OTHER, SELFPAY ==
[2023-04-25 07:19] LABS: MANUAL DIFF FLAG NO
[2023-04-25 07:38] LABS: Basophils Absolute Auto 0.1 X10*3/uL (0.0-0.2); Basophils Percent Auto 1.4 % (0-2); Eosinophils Absolute Auto 0.2 X10*3/uL (0.0-0.4); Eosinophils Percent Auto 3.2 % (0-4); Hematocrit 40.3 % (37.0-47.0); Hemoglobin 12.7 g/dl (12.0-16.0); Imm Gran Abs Auto 0.01 X10*3/uL (0.00-0.03); Imm Gran Pct Auto 0.2 % (0.0-0.4); Lymphocytes Absolute Auto 2.5 X10*3/uL (1.2-4.9); Lymphocytes Percent Auto 42.3 % (20-40); Mean Corpuscular HGB Conc 31.5 g/dl (31.0-35.0); Mean Corpuscular Hemoglobin 26.7 pg (27.0-33.0); Mean Corpuscular Volume 84.8 fL (80.0-98.0); Mean Platelet Volume 9.9 fL (9.4-12.3); Monocytes Absolute Auto 0.4 X10*3/uL (0.1-1.2); Monocytes Percent Auto 7.5 % (2-11); Neutrophils Absolute Auto 2.7 x10*3/uL (2.0-8.3); Neutrophils Percent Auto 45.4 % (45-73); Platelet Count 317 X10*3/uL (160-400); Red Blood Count 4.75 X10*6/uL (4.20-5.50); Red Cell Distribution Width 16.3 % (11.0-16.0); White Blood Count 5.9 X10*3/uL (4.8-10.8)
[2023-04-25 08:32] LABS: Alanine Aminotransferase 18 U/L (0-31); Albumin Level 3.7 g/dL (3.5-5.0); Alkaline Phosphatase 93 U/L (39-117); Anion Gap 11 (12-20); Aspartate Amino Transferase 25 U/L (5-31); Bilirubin Total 0.3 mg/dL (0.0-1.0); Blood Urea Nitrogen 12 mg/dL (9-16); Calcium 9.2 mg/dL (8.4-10.2); Carbon Dioxide 26 mmol/L (22-29); Chloride 109 mmol/L (96-108); Cholesterol 139 mg/dL (<200); Estimated Glomerular Filt Rate > 60; Glucose Fasting 89 mg/dL (60-99); HDL Cholesterol 58 mg/dL (>40); LDL Cholesterol Calculated 66 mg/dL (<100); Potassium 4.5 mmol/L (3.3-5.1); Sodium 141 mmol/L (135-145); Total Protein 7.1 g/dL (6.5-8.0); Triglycerides 79 mg/dL (<150)
== END 2023-04-25 07:03 | disposition home or self-care (01) ==
LOC: HO.LAB 07:02
PROVIDERS: PCP Internal Medicine Medical Oncology; Visit Provider Internal Medicine Medical Oncology
DX: E66.3 Overweight (principal); I63.9 Cerebral infarction, unspecified; E78.5 Hyperlipidemia, unspecified; I48.0 Paroxysmal atrial fibrillation
CPT/HCPCS: 36415; 80053; 80061; 85025

== ENCOUNTER 2023-05-20 13:45 | Outpatient (REF) | payer MEDICARE, OTHER, SELFPAY ==
--- NOTE | ~2023-05-20 | MM_ITS ---
EXAMINATION: BONE DENSITOMETRY CLINICAL INDICATION: Osteoporosis. COMPARISON: This is the patient's baseline examination. TECHNIQUE: Using a Skulpt DXA System (software version: 13.1) manufactured by [employer], dual-energy x-ray absorptiometry was performed of the lumbar spine and left hip. The images are of good technical quality. Summary results are attached. FINDINGS: LEFT FEMUR, NECK: BMD 0.678 g/cm2, Z-score -0.6, T-score -2.6, osteoporosis. LEFT FEMUR, TOTAL: BMD 0.704 g/cm2, Z-score -0.7, T-score -2.4, osteopenia. AP SPINE L1-L4: BMD 1.069 g/cm2, Z-score 0.8, T-score -0.9, normal. IDENTIFIED RISK FACTORS: Early menopause, secondary osteoporosis, height loss. HISTORY OF FRACTURE: None listed. MEDICATIONS: Multivitamin. MM/XR DEXA axial skeleton IMPRESSION: 1. DIAGNOSIS: Osteoporosis based on the lowest T-score value of -2.6 in the femoral neck applying World Health Organization criteria. 2. 10-YEAR FRACTURE RISK PREDICTION, FRAX: According to the guidelines, FRAX calculation should only be performed on patients in the osteopenia bone density category. Therefore, FRAX was not performed on this patient. 3. Treatment Recommendations: NOF guidelines recommend consideration for treatment in postmenopausal women and men age 50 and older presenting with the following: -A hip or vertebral (clinical or morphometric) fracture. -T-score less than or equal to -2.5 at the femoral neck or spine after appropriate evaluation to exclude secondary causes. -Low bone mass at the hip or spine and a 10-year fracture probability by FRAX of greater than or equal to 3% for hip fracture or greater than or equal to 20% for major osteoporotic fracture based on the [place] adapted WHO algorithm. 4. Other Recommendations: All treatment decisions require clinical judgment and consideration of individual patient factors, including patient preferences, comorbidities, previous drug use, risk factors not captured in the FRAX model (e.g. frailty, falls, vitamin D deficiency, increased bone turnover, interval significant decline in bone density) and possible under or overestimation of fracture risk by FRAX. Additional medical evaluation for secondary cause of low bone mineral density may be appropriate. FUTURE SCAN RECOMMENDATION: People with diagnosed cases of osteoporosis or at high risk for fracture should have regular bone mineral density tests. For patients eligible for Medicare, routine testing is allowed once every 2 years. The testing frequency can be increased to one year for patients who have rapidly progressing disease, those who are receiving or discontinuing medical therapy to restore bone mass, or have additional risk factors.
== END 2023-05-20 13:46 | disposition home or self-care (01) ==
LOC: HO.MAMMO 13:45
PROVIDERS: Visit Provider Internal Medicine Medical Oncology
DX: Z13.820 Encounter for screening for osteoporosis (principal); M81.0 Age-related osteoporosis without current pathological fracture; Z78.0 Asymptomatic menopausal state
CPT/HCPCS: 77080

== ENCOUNTER 2023-08-05 11:16 | Outpatient (REF) | payer MEDICARE, OTHER, SELFPAY ==
[2023-08-05 11:48] LABS: MANUAL DIFF FLAG NO
[2023-08-05 13:26] LABS: Basophils Absolute Auto 0.1 X10*3/uL (0.0-0.2); Basophils Percent Auto 1.2 % (0-2); Eosinophils Absolute Auto 0.1 X10*3/uL (0.0-0.4); Hematocrit 42.4 % (37.0-47.0); Hemoglobin 13.6 g/dl (12.0-16.0); Imm Gran Abs Auto 0.01 X10*3/uL (0.00-0.03); Imm Gran Pct Auto 0.1 % (0.0-0.4); Lymphocytes Absolute Auto 2.4 X10*3/uL (1.2-4.9); Lymphocytes Percent Auto 34.6 % (20-40); Mean Corpuscular HGB Conc 32.1 g/dl (31.0-35.0); Mean Corpuscular Hemoglobin 30.2 pg (27.0-33.0); Mean Corpuscular Volume 94.2 fL (80.0-98.0); Mean Platelet Volume 10.9 fL (9.4-12.3); Monocytes Absolute Auto 0.6 X10*3/uL (0.1-1.2); Monocytes Percent Auto 8.3 % (2-11); Neutrophils Absolute Auto 3.8 x10*3/uL (2.0-8.3); Neutrophils Percent Auto 54.8 % (45-73); Platelet Count 231 X10*3/uL (160-400); Red Cell Distribution Width 13.9 % (11.0-16.0); White Blood Count 6.9 X10*3/uL (4.8-10.8)
[2023-08-05 13:53] LABS: Alanine Aminotransferase 18 U/L (0-31); Albumin Level 3.9 g/dL (3.5-5.0); Alkaline Phosphatase 82 U/L (39-117); Anion Gap 10 (12-20); Aspartate Amino Transferase 27 U/L (5-31); Bilirubin Total 0.5 mg/dL (0.0-1.0); Blood Urea Nitrogen 17 mg/dL (9-16); Calcium 9.3 mg/dL (8.4-10.2); Carbon Dioxide 24 mmol/L (22-29); Chloride 110 mmol/L (96-108); Cholesterol 148 mg/dL (<200); Estimated Glomerular Filt Rate > 60; Glucose Fasting 76 mg/dL (60-99); HDL Cholesterol 65 mg/dL (>40); LDL Cholesterol Calculated 74 mg/dL (<100); Potassium 4.3 mmol/L (3.3-5.1); Sodium 140 mmol/L (135-145); Triglycerides 49 mg/dL (<150)
== END 2023-08-05 11:17 | disposition home or self-care (01) ==
LOC: HO.LAB 11:16
PROVIDERS: PCP Internal Medicine Medical Oncology; Visit Provider Internal Medicine Medical Oncology
DX: Z00.00 Encounter for general adult medical examination without abnormal findings (principal); E78.5 Hyperlipidemia, unspecified
CPT/HCPCS: 36415; 80053; 80061; 85025

== ENCOUNTER 2023-11-18 09:46 | Outpatient (REF) | payer MEDICARE, SELFPAY ==
[2023-11-18 10:57] LABS: Anion Gap 11 (12-20); Blood Urea Nitrogen 19 mg/dL (9-16); Calcium 9.4 mg/dL (8.4-10.2); Carbon Dioxide 28 mmol/L (22-29); Chloride 108 mmol/L (96-108); Estimated Glomerular Filt Rate > 60; Glucose Random 77 mg/dL (60-115); Potassium 4.9 mmol/L (3.3-5.1); Sodium 142 mmol/L (135-145)
== END 2023-11-18 09:47 | disposition home or self-care (01) ==
LOC: HO.LAB 09:46
PROVIDERS: PCP Internal Medicine Medical Oncology; Visit Provider Nurse Practitioner Family
DX: I63.9 Cerebral infarction, unspecified (principal); I48.91 Unspecified atrial fibrillation; E78.2 Mixed hyperlipidemia
CPT/HCPCS: 36415; 80048; 83735

== ENCOUNTER 2023-12-04 09:35 | Outpatient (REF) | payer MEDICARE, SELFPAY ==
[2023-12-04 09:57] LABS: MANUAL DIFF FLAG NO
[2023-12-04 10:41] LABS: Basophils Absolute Auto 0.1 X10*3/uL (0.0-0.2); Eosinophils Absolute Auto 0.1 X10*3/uL (0.0-0.4); Eosinophils Percent Auto 1.2 % (0-4); Hematocrit 42.9 % (37.0-47.0); Hemoglobin 14.2 g/dl (12.0-16.0); Imm Gran Abs Auto 0.02 X10*3/uL (0.00-0.03); Imm Gran Pct Auto 0.2 % (0.0-0.4); Lymphocytes Absolute Auto 2.5 X10*3/uL (1.2-4.9); Lymphocytes Percent Auto 30.5 % (20-40); Mean Corpuscular HGB Conc 33.1 g/dl (31.0-35.0); Mean Corpuscular Hemoglobin 31.8 pg (27.0-33.0); Mean Corpuscular Volume 96.2 fL (80.0-98.0); Mean Platelet Volume 10.6 fL (9.4-12.3); Monocytes Absolute Auto 0.6 X10*3/uL (0.1-1.2); Monocytes Percent Auto 7.1 % (2-11); Neutrophils Absolute Auto 4.8 x10*3/uL (2.0-8.3); Platelet Count 208 X10*3/uL (160-400); Red Blood Count 4.46 X10*6/uL (4.20-5.50); Red Cell Distribution Width 13.1 % (11.0-16.0)
[2023-12-04 11:47] LABS: Alanine Aminotransferase 17 U/L (0-31); Albumin Level 3.9 g/dL (3.5-5.0); Alkaline Phosphatase 83 U/L (39-117); Anion Gap 13 (12-20); Aspartate Amino Transferase 23 U/L (5-31); Bilirubin Total 0.6 mg/dL (0.0-1.0); Blood Urea Nitrogen 14 mg/dL (9-16); Calcium 9.8 mg/dL (8.4-10.2); Carbon Dioxide 26 mmol/L (22-29); Chloride 108 mmol/L (96-108); Cholesterol 140 mg/dL (<200); Estimated Glomerular Filt Rate > 60; Glucose Fasting 82 mg/dL (60-99); HDL Cholesterol 60 mg/dL (>40); LDL Cholesterol Calculated 66 mg/dL (<100); Potassium 5.1 mmol/L (3.3-5.1); Sodium 142 mmol/L (135-145); Total Protein 7.2 g/dL (6.5-8.0); Triglycerides 70 mg/dL (<150)
== END 2023-12-04 09:36 | disposition home or self-care (01) ==
LOC: HO.LAB 09:35
PROVIDERS: Visit Provider Internal Medicine Medical Oncology
DX: I63.81 Other cerebral infarction due to occlusion or stenosis of small artery (principal); E78.5 Hyperlipidemia, unspecified
CPT/HCPCS: 36415; 80053; 80061; 85025

== ENCOUNTER 2023-12-10 07:03 | Outpatient (REF) | payer MEDICARE, SELFPAY ==
[2023-12-10 10:27] LABS: Anion Gap 10 (12-20); Blood Urea Nitrogen 14 mg/dL (9-16); Calcium 8.9 mg/dL (8.4-10.2); Carbon Dioxide 25 mmol/L (22-29); Chloride 111 mmol/L (96-108); Estimated Glomerular Filt Rate > 60; Glucose Random 86 mg/dL (60-115); Magnesium 1.9 mg/dL (1.6-2.6); Sodium 142 mmol/L (135-145)
== END 2023-12-10 07:04 | disposition home or self-care (01) ==
LOC: HO.LAB 07:03
PROVIDERS: PCP Internal Medicine Medical Oncology; Visit Provider Nurse Practitioner Family
DX: I63.9 Cerebral infarction, unspecified (principal); I48.91 Unspecified atrial fibrillation; E78.2 Mixed hyperlipidemia
CPT/HCPCS: 36415; 80048; 83735

== ENCOUNTER 2024-01-07 06:59 | Outpatient (REF) | payer MEDICARE, SELFPAY ==
[2024-01-07 07:08] LABS: MANUAL DIFF FLAG NO
[2024-01-07 07:59] LABS: INTERNATIONAL NORM RATIO 1.1 (0.9-1.1); Prothrombin Time 12.8 SEC (11.1-13.3)
[2024-01-07 08:08] LABS: Basophils Absolute Auto 0.1 X10*3/uL (0.0-0.2); Basophils Percent Auto 1.5 % (0-2); Eosinophils Absolute Auto 0.1 X10*3/uL (0.0-0.4); Eosinophils Percent Auto 1.5 % (0-4); Hematocrit 45.5 % (37.0-47.0); Hemoglobin 15.1 g/dl (12.0-16.0); Imm Gran Abs Auto 0.01 X10*3/uL (0.00-0.03); Imm Gran Pct Auto 0.2 % (0.0-0.4); Lymphocytes Absolute Auto 2.9 X10*3/uL (1.2-4.9); Lymphocytes Percent Auto 42.9 % (20-40); Mean Corpuscular HGB Conc 33.2 g/dl (31.0-35.0); Mean Corpuscular Hemoglobin 32.5 pg (27.0-33.0); Mean Corpuscular Volume 97.8 fL (80.0-98.0); Monocytes Absolute Auto 0.5 X10*3/uL (0.1-1.2); Neutrophils Absolute Auto 3.1 x10*3/uL (2.0-8.3); Neutrophils Percent Auto 45.9 % (45-73); Platelet Count 277 X10*3/uL (160-400); Red Blood Count 4.65 X10*6/uL (4.20-5.50); Red Cell Distribution Width 12.6 % (11.0-16.0); White Blood Count 6.7 X10*3/uL (4.8-10.8)
[2024-01-07 08:33] LABS: Anion Gap 13 (12-20); Blood Urea Nitrogen 17 mg/dL (9-16); Calcium 9.3 mg/dL (8.4-10.2); Carbon Dioxide 25 mmol/L (22-29); Chloride 108 mmol/L (96-108); Estimated Glomerular Filt Rate > 60; Glucose Random 85 mg/dL (60-115); Potassium 4.2 mmol/L (3.3-5.1); Sodium 142 mmol/L (135-145)
== END 2024-01-07 07:00 | disposition home or self-care (01) ==
LOC: HO.LAB 06:59
PROVIDERS: PCP Internal Medicine Medical Oncology; Visit Provider Nurse Practitioner Family
DX: I63.9 Cerebral infarction, unspecified (principal); E78.2 Mixed hyperlipidemia; I48.91 Unspecified atrial fibrillation
CPT/HCPCS: 36415; 80048; 85025; 85610

== ENCOUNTER 2024-02-10 12:02 | Outpatient (REF) | payer MEDICARE, SELFPAY ==
[2024-02-10 12:16] LABS: MANUAL DIFF FLAG NO
[2024-02-10 12:38] LABS: Basophils Absolute Auto 0.1 X10*3/uL (0.0-0.2); Basophils Percent Auto 1.1 % (0-2); Eosinophils Absolute Auto 0.1 X10*3/uL (0.0-0.4); Eosinophils Percent Auto 1.1 % (0-4); Hematocrit 43.9 % (37.0-47.0); Hemoglobin 14.9 g/dl (12.0-16.0); Imm Gran Abs Auto 0.03 X10*3/uL (0.00-0.03); Imm Gran Pct Auto 0.4 % (0.0-0.4); Lymphocytes Absolute Auto 2.7 X10*3/uL (1.2-4.9); Lymphocytes Percent Auto 33.2 % (20-40); Mean Corpuscular HGB Conc 33.9 g/dl (31.0-35.0); Mean Corpuscular Hemoglobin 32.7 pg (27.0-33.0); Mean Corpuscular Volume 96.3 fL (80.0-98.0); Mean Platelet Volume 9.4 fL (9.4-12.3); Monocytes Absolute Auto 0.5 X10*3/uL (0.1-1.2); Monocytes Percent Auto 5.5 % (2-11); Neutrophils Absolute Auto 4.9 x10*3/uL (2.0-8.3); Neutrophils Percent Auto 58.7 % (45-73); Platelet Count 273 X10*3/uL (160-400); Red Blood Count 4.56 X10*6/uL (4.20-5.50); Red Cell Distribution Width 12.2 % (11.0-16.0); White Blood Count 8.3 X10*3/uL (4.8-10.8)
[2024-02-10 12:59] LABS: Anion Gap 8 (12-20); Blood Urea Nitrogen 14 mg/dL (9-16); Calcium 9.5 mg/dL (8.4-10.2); Carbon Dioxide 28 mmol/L (22-29); Chloride 106 mmol/L (96-108); Estimated Glomerular Filt Rate > 60; Glucose Random 130 mg/dL (60-115); Potassium 4.4 mmol/L (3.3-5.1); Sodium 138 mmol/L (135-145)
== END 2024-02-10 12:03 | disposition home or self-care (01) ==
LOC: HO.LAB 12:02
PROVIDERS: PCP Internal Medicine Medical Oncology; Visit Provider Nurse Practitioner Family
DX: I48.91 Unspecified atrial fibrillation (principal)
CPT/HCPCS: 36415; 80048; 85025

== ENCOUNTER 2024-02-18 14:29 | Outpatient (REF) | payer MEDICARE, SELFPAY ==
[2024-02-18 15:50] LABS: INTERNATIONAL NORM RATIO 1.3 (0.9-1.1); Prothrombin Time 15.7 SEC (11.1-13.3)
== END 2024-02-18 14:30 | disposition home or self-care (01) ==
LOC: HO.LAB 14:29
PROVIDERS: PCP Internal Medicine Medical Oncology; Visit Provider Nurse Practitioner Family
DX: Z01.818 Encounter for other preprocedural examination (principal); I48.91 Unspecified atrial fibrillation; R00.2 Palpitations
CPT/HCPCS: 36415; 85610

== ENCOUNTER 2024-04-13 10:28 | Outpatient (REF) | payer MEDICARE, SELFPAY ==
[2024-04-13 10:45] LABS: MANUAL DIFF FLAG NO
[2024-04-13 12:27] LABS: INTERNATIONAL NORM RATIO 1.3 (0.9-1.1); Prothrombin Time 15.6 SEC (11.1-13.3)
[2024-04-13 12:55] LABS: Anion Gap 9 (12-20); Blood Urea Nitrogen 16 mg/dL (9-16); Calcium 9.1 mg/dL (8.4-10.2); Carbon Dioxide 27 mmol/L (22-29); Chloride 108 mmol/L (96-108); Estimated Glomerular Filt Rate > 60; Glucose Random 80 mg/dL (60-115); Potassium 5.1 mmol/L (3.3-5.1); Sodium 139 mmol/L (135-145)
[2024-04-13 13:42] LABS: Basophils Absolute Auto 0.1 X10*3/uL (0.0-0.2); Basophils Percent Auto 1.5 % (0-2); Eosinophils Absolute Auto 0.1 X10*3/uL (0.0-0.4); Hematocrit 41.7 % (37.0-47.0); Hemoglobin 14.1 g/dl (12.0-16.0); Imm Gran Abs Auto 0.01 X10*3/uL (0.00-0.03); Imm Gran Pct Auto 0.2 % (0.0-0.4); Lymphocytes Absolute Auto 2.1 X10*3/uL (1.2-4.9); Lymphocytes Percent Auto 33.6 % (20-40); Mean Corpuscular HGB Conc 33.8 g/dl (31.0-35.0); Mean Corpuscular Hemoglobin 32.6 pg (27.0-33.0); Mean Corpuscular Volume 96.3 fL (80.0-98.0); Mean Platelet Volume 10.6 fL (9.4-12.3); Monocytes Absolute Auto 0.4 X10*3/uL (0.1-1.2); Neutrophils Absolute Auto 3.4 x10*3/uL (2.0-8.3); Neutrophils Percent Auto 55.7 % (45-73); Platelet Count 227 X10*3/uL (160-400); Red Blood Count 4.33 X10*6/uL (4.20-5.50); Red Cell Distribution Width 12.5 % (11.0-16.0); White Blood Count 6.1 X10*3/uL (4.8-10.8)
== END 2024-04-13 10:29 | disposition home or self-care (01) ==
LOC: HO.LAB 10:28
PROVIDERS: PCP Internal Medicine Medical Oncology; Visit Provider Internal Medicine Cardiovascular Disease
DX: I48.91 Unspecified atrial fibrillation (principal)
CPT/HCPCS: 36415; 80048; 85025; 85610

== ENCOUNTER 2024-05-11 06:43 | Outpatient (REF) | payer MEDICARE, SELFPAY ==
[2024-05-11 06:52] LABS: MANUAL DIFF FLAG NO
[2024-05-11 07:14] LABS: Basophils Absolute Auto 0.1 X10*3/uL (0.0-0.2); Basophils Percent Auto 1.5 % (0-2); Eosinophils Absolute Auto 0.2 X10*3/uL (0.0-0.4); Eosinophils Percent Auto 2.7 % (0-4); Hematocrit 40.6 % (37.0-47.0); Hemoglobin 13.6 g/dl (12.0-16.0); Imm Gran Abs Auto 0.02 X10*3/uL (0.00-0.03); Imm Gran Pct Auto 0.3 % (0.0-0.4); Lymphocytes Percent Auto 33.7 % (20-40); Mean Corpuscular HGB Conc 33.5 g/dl (31.0-35.0); Mean Corpuscular Hemoglobin 32.6 pg (27.0-33.0); Mean Corpuscular Volume 97.4 fL (80.0-98.0); Mean Platelet Volume 9.8 fL (9.4-12.3); Monocytes Absolute Auto 0.5 X10*3/uL (0.1-1.2); Neutrophils Absolute Auto 3.2 x10*3/uL (2.0-8.3); Neutrophils Percent Auto 53.8 % (45-73); Platelet Count 261 X10*3/uL (160-400); Red Blood Count 4.17 X10*6/uL (4.20-5.50); Red Cell Distribution Width 13.1 % (11.0-16.0); White Blood Count 5.9 X10*3/uL (4.8-10.8)
[2024-05-11 07:38] LABS: Alanine Aminotransferase 21 U/L (0-31); Albumin Level 3.8 g/dL (3.5-5.0); Alkaline Phosphatase 86 U/L (39-117); Anion Gap 10 (12-20); Aspartate Amino Transferase 25 U/L (5-31); Bilirubin Total 0.4 mg/dL (0.0-1.0); Blood Urea Nitrogen 15 mg/dL (9-16); Carbon Dioxide 27 mmol/L (22-29); Chloride 110 mmol/L (96-108); Cholesterol 140 mg/dL (<200); Estimated Glomerular Filt Rate > 60; Glucose Fasting 94 mg/dL (60-99); HDL Cholesterol 57 mg/dL (>40); LDL Cholesterol Calculated 74 mg/dL (<100); Potassium 4.2 mmol/L (3.3-5.1); Sodium 143 mmol/L (135-145); Total Protein 6.7 g/dL (6.5-8.0); Triglycerides 45 mg/dL (<150)
[2024-05-11 07:54] LABS: Vitamin D 25-OH Total 43.8 ng/mL (>30)
== END 2024-05-11 06:44 | disposition home or self-care (01) ==
LOC: HO.LAB 06:43
PROVIDERS: PCP Internal Medicine Medical Oncology; Visit Provider Internal Medicine Medical Oncology
DX: I63.81 Other cerebral infarction due to occlusion or stenosis of small artery (principal); E78.5 Hyperlipidemia, unspecified; E55.9 Vitamin D deficiency, unspecified
CPT/HCPCS: 36415; 80053; 80061; 82306; 85025

== ENCOUNTER 2024-09-02 06:55 | Outpatient (REF) | payer MEDICARE, SELFPAY ==
--- NOTE | ~2024-09-02 | XR_ITS ---
CLINICAL HISTORY: ACUTE COUGH,CHEST CONGESTION 2 view chest x-ray. Comparison: CR/OK - XR CHEST 2V - 09/27/20 06:40 EST Findings: The lungs are adequately expanded. Minimal interstitial prominence. No focal confluent opacity. No effusion or pneumothorax. Cardiac and mediastinal contours are within normal limits. No acute osseous abnormality Impression: Minimal interstitial prominence. No focal consolidation. This document has been electronically signed by: Edy Mari MD on 09/02/2024 07:15:20
--- OUTSIDE RECORDS SUMMARY | 2024-09-02 06:57 | XMS_ITS ---
Author Organization Otilio Damon III, MD Address [address] [place] [address] [place] [address] Care Team Providers Care Surgical Services Coordinator Name Role Phone Otilio Damon Primary Care Provider [phone] REASON FOR VISIT Not well Medications Medication [...] Date Provider Diagnosis Otilio Damon III, MD [address] [place] [address] [place] [address] 09/01/2024 Otilio Damon Acute cough R05.1 an [...] Details Provider Name:Otilio Damon, 05/19/2025 10:00:00 AM, [address] [place] [address] , [address], [place], [address], Progress Notes * Katheryn CERNA LDOB:[birth year] (79 yo F)Acc No.[id number]:09/01/2024 Patient:?Katheryn CERNA :1945???Age:79 Y???Sex:Female Address:[address] [place] [address] * Refills? Start Zithromax Z-Corey Tablet, 250 MG, Orally, 6, 2 tablets on the first day, then 1 tablet daily for 4 days, Once a day, 5 days, Refills=0 Subjective: * Chief Complaints: * ???Not well * Medical History:? * Surgical History:? * Hospitalization/Major Diagno stic Procedure:? * Medications:? Objective: * Vitals:? * Physical Examination:? Assessment: * Assessment: 1.?Acute cough - R05.1???2.? Chest congestion - R09.89??? Plan: * Treatment: 2.?Chest congestion?Imaging: XR CHEST 2 VIEW PA & LAT 3.?Others? Start Zithromax Z-Corey Tablet, 250 MG, 2 tablets on the first day, then 1 tablet daily for 4 days, Orally, Once a day, 5 days, 6, Refills 0.?? * Procedure Codes:? * true * Date:? Generated for Gagandeep sawyer/Robson/eTbushrasmitting on:?09/02/2024 06:57 AM EST
--- OUTSIDE RECORDS SUMMARY | 2024-09-02 06:58 | XMS_ITS ---
Author Organization Otilio Damon III, MD Address [address] [place] [address] Care Team Providers Care Assisted Living Coordinator Name Role Phone Otilio Damon Primary Care Provider REASON FOR VISIT Telehealth Social History Sex Assigned At : Social History Observation Description Sex Assigned At Female Encounters Encounter Location Date Provider Diagnosis Otilio Damon III, MD [address] [place] [address] [place] [address] 07/20/2024 Otilio Damon Plan Of Treatment Next Appt Details Provider Name:Otilio Damon, 05/19/2025 10:00:00 AM, [address] [place] [address] [place], [address], Progress Notes * Katheryn CERNA LDOB:[birth year] (79 yo F)Acc No.[id number]:07/20/2024 Patient:Katheryn BEASLEY Provider:?Otilio Damon MD :1945???Age:78 Y???Sex:Female D ate:07/20/2024 Address:[address] [id number] Subjective: * Chief Complaints: * ???1. Telehealth. * Medical History:? Objective: * Vitals:? Assessment: Plan: * Treatment: * Images: * The named appointment provid er may or may not be the originator of this progress note, and it is not deemed complete until electronically signed by the appointment provider. Sign off status: Pending * Provider:?Otilio Damon MD Date:?07/02 Generated for Gagandeep sawyer/Robson/Mirandaitting on:?09/02/2024 06:57 AM EST
--- OUTSIDE RECORDS SUMMARY | 2024-09-02 06:58 | XMS_ITS | Patient Health Record ---
Author Organization Otilio Damon III, MD Address [address] [place] [address] [address] [place] [address] Care Team Providers [employer] Worker Name Role Phone Otilio Damon Primary Care Provider [phone] Allergies Allergen (clinical drug ingredient) Drug/Non Drug Allergy documented on EMR Reaction Allergy Type Onset Date Status Seasonale Unknown Drug Allergy Active Results Component Value Reference Range Notes URINE DIP STICK Reviewed date:05/16/2024 10:33:10 AM Interpretation: Performing Lab: Notes/Report: SG 1.010 1.005 - 1.025 pH 6.5 5.0 - 9.0 JOSS Negative Negative - NIT Negative Negative - PRO Negative Negative - Trace GLU Negative Negative - KET Negative Negative - UBG 0.2 0.1 - 1.8 SEBASTIAN Negative 0.2 - 1.3 BLD Negative Negative - MAMMOGRAM DIGITAL BILATERAL SCREEN Reviewed date:05/16/2024 10:53:17 AM Interpretation:undefined Performing Lab: Notes/Report: undefined Complete Blood Count Auto Di ff Reviewed date:12/05/2023 07:27:57 PM Interpretation: Performing Lab:[facility], [address] [place] [phone] Notes/Report: White Blood Count 8.0 4.8-10.8 X10*3/uL Red Blood Count 4.46 4.20-5.50 X10*6/uL Hemoglobin 14.2 12.0-16.0 g/dl Hematocrit 42.9 37.0-47.0 % Mean Corpuscular Volume 96.2 80.0-98.0 fL Mean Corpuscular Hemoglobin 31.8 27.0-33.0 pg Mean Corpuscular HGB Conc 33.1 31.0-35.0 g/dl Red Cell Distribution Width 13.1 11.0-16.0 % Platelet Count 208 160-400 X10*3/uL Mean Platelet Volume 10.6 9.4-12.3 fL Neutrophils Percent Auto 60.0 45-73 % Imm Gran Pct Auto 0.2 0.0-0.4 % Lymphocytes Percent Auto 30.5 20-40 % Monocytes Percent Auto 7.1 2-11 % Eosinophils Percent Auto 1.2 0-4 % Basophils Percent Auto 1.0 0-2 % NRBC Pct Auto 0.0 0.0-0.2 /100WBC Neutrophils Absolute Auto 4.8 2.0-8.3 x10*3/u L Imm Gran Abs Auto 0.02 0.00-0.03 X10*3/uL Lymphocytes Absolute Auto 2.5 1.2-4.9 X10*3/u L Monocytes Absolute Auto 0.6 0.1-1.2 X10*3/uL Eosinophils Absolute Auto 0.1 0.0-0.4 X10*3/u L Basophils Absolute Auto 0.1 0.0-0.2 X10*3/uL NRBC Abs Auto 0.000 0.0-0.012 X10*3/uL Comprehensive [place]. Panel Fa st Reviewed date:12/05/2023 07:27:57 PM Interpretation: Performing Lab:[facility], [address] [place] [phone] Notes/Report: Sodium 142 135-145 mmol/L Potassium 5.1 3.3-5.1 mmol/L Chloride 108 96-108 mmol/L Carbon Dioxide 26 22-29 mmol/L Anion Gap 13 12-20 Blood Urea Nitrogen 14 9-16 mg/dL Creatinine 0.73 0.5-1.4 mg/dL Estimated Glomerular Filt Rate > 60 NOTE: For -English individuals, multiply the result by 1.210. Chronic Kidney Disease: Estimated GFR < 60 mL/min/1.73m2 Severe Kidney Disease: Estimated GFR < 15 mL/min/1.73m2 Glucose Fasting 82 60-99 mg/dL Calcium 9.8 8.4-10.2 mg/dL Bilirubin Total 0.6 0.0-1.0 mg/dL Aspartate Amino Transferase 23 5-31 U/L Alanine Aminotransferase 17 0-31 U/L Total Protein 7.2 6.5-8.0 g/dL Albumin Level 3.9 3.5-5.0 g/dL Alkaline Phosphatase 83 39-117 U/L Lipid Panel Reviewed date:12/05/2023 07:27:57 PM Interpretation: Performing Lab:[address] [phone] Notes/Report: Triglycerides 70 <150 mg/dL Desirable Triglyceride: less than 150 mg/dL Borderline High Triglyceride 150-199 mg/dL High Triglyceride: 200-499 mg/dL Very High Triglyceride: greater than or equal to 5OO mg/dL Cholesterol 140 <200 mg/dL Desirable Cholesterol: less than 200 mg/dL Borderline High Cholesterol: 200-239 mg/dL High Cholesterol: greater than 239 mg/dL LDL Cholesterol Calculated 66 <100 mg/dL Desirable LDL: less than 100 mg/dL Near Optimal/Above Optimal LDL: 110-129 mg/dL Borderline High LDL: 130-159 mg/dL High LDL: 160-189 mg/dL Very High LDL: greater than or equal to 190 mg/dL HDL Cholesterol 60 >40 mg/dL Desirable HDL: greater than 40 mg/dL Note: This HDL assay may give artificially low results in patients with liver disease. Complete Blood Count Auto Di ff Reviewed date:05/15/2024 07:26:59 AM Interpretation: Performing Lab:[address] [phone] Notes/Report: White Blood Count 5.9 4.8-10.8 X10*3/uL Red Blood Count 4.17 4.20-5.50 X10*6/uL Hemoglobin 13.6 12.0-16.0 g/dl Hematocrit 40.6 37.0-47.0 % Mean Corpuscular Volume 97.4 80.0-98.0 fL Mean Corpuscular Hemoglobin 32.6 27.0-33.0 pg Mean Corpuscular HGB Conc 33.5 31.0-35.0 g/dl Red Cell Distribution Width 13.1 11.0-16.0 % Platelet Count 261 160-400 X10*3/uL Mean Platelet Volume 9.8 9.4-12.3 fL Neutrophils Percent Auto 53.8 45-73 % Imm Gran Pct Auto 0.3 0.0-0.4 % Lymphocytes Percent Auto 33.7 20-40 % Monocytes Percent Auto 8.0 2-11 % Eosinophils Percent Auto 2.7 0-4 % Basophils Percent Auto 1.5 0-2 % NRBC Pct Auto 0.0 0.0-0.2 /100WBC Neutrophils Absolute Auto 3.2 2.0-8.3 x10*3/u L Imm Gran Abs Auto 0.02 0.00-0.03 X10*3/uL Lymphocytes Absolute Auto 2.0 1.2-4.9 X10*3/u L Monocytes Absolute Auto 0.5 0.1-1.2 X10*3/uL Eosinophils Absolute Auto 0.2 0.0-0.4 X10*3/u L Basophils Absolute Auto 0.1 0.0-0.2 X10*3/uL NRBC Abs Auto 0.000 0.0-0.012 X10*3/uL Comprehensive [place]. Panel Fa st Reviewed date:05/15/2024 07:26:59 AM Interpretation: Performing Lab:[facility], [address] [place] [phone] Notes/Report: Sodium 143 135-145 mmol/L Potassium 4.2 3.3-5.1 mmol/L Chloride 110 96-108 mmol/L Carbon Dioxide 27 22-29 mmol/L Anion Gap 10 12-20 Blood Urea Nitrogen 15 9-16 mg/dL Creatinine 0.90 0.5-1.4 mg/dL Estimated Glomerular Filt Rate > 60 NOTE: For -English individuals, multiply the result by 1.210. Chronic Kidney Disease: Estimated GFR < 60 mL/min/1.73m2 Severe Kidney Disease: Estimated GFR < 15 mL/min/1.73m2 Glucose Fasting 94 60-99 mg/dL Calcium 9.0 8.4-10.2 mg/dL Bilirubin Total 0.4 0.0-1.0 mg/dL Aspartate Amino Transferase 25 5-31 U/L Alanine Aminotransferase 21 0-31 U/L Total Protein 6.7 6.5-8.0 g/dL Albumin Level 3.8 3.5-5.0 g/dL Alkaline Phosphatase 86 39-117 U/L Lipid Panel Reviewed date:05/15/2024 07:26:59 AM Interpretation: Performing Lab:[facility], [address] [place] [phone] Notes/Report: Triglycerides 45 <150 mg/dL Desirable Triglyceride: less than 150 mg/dL Borderline High Triglyceride 150-199 mg/dL High Triglyceride: 200-499 mg/dL Very High Triglyceride: greater than or equal to 5OO mg/dL Cholesterol 140 <200 mg/dL Desirable Cholesterol: less than 200 mg/dL Borderline High Cholesterol: 200-239 mg/dL High Cholesterol: greater than 239 mg/dL LDL Cholesterol Calculated 74 <100 mg/dL Desirable LDL: less than 100 mg/dL Near Optimal/Above Optimal LDL: 110-129 mg/dL Borderline High LDL: 130-159 mg/dL High LDL: 160-189 mg/dL Very High LDL: greater than or equal to 190 mg/dL HDL Cholesterol 57 >40 mg/dL Desirable HDL: greater than 40 mg/dL Note: This HDL assay may give artificially low results in patients with liver disease. Vitamin D 25-OH Total Reviewed date:05/15/2024 07:26:59 AM Interpretation: Performing Lab:[facility], [address] [place] [phone] Notes/Report: Vitamin D 25-OH Total 43.8 >30 ng/mL Health Based Reference Values* < 20 ng/mL Deficient 20-30 ng/mL Insufficient > 30 ng/mL Sufficient *Fernando LEA. N Engl J Med. 2007;357:266-280 Care must be taken in interpreting Vitamin D results from different laboratories and methodologies. Published data demonstrated that results from patients undergoing hemodialysis may show a negative bias when tested with various automated 25-OH vitamin D assays when compared to LC-MS/MS. When testing samples from patients whose predominant form of Vitamin D is Vitamin D2, such as patients receiving Vitamin D2 supplementation, results that are subtherapeutic should be confirmed with another method such as LC-MS/MS. Reason For Referral Reason neoplasm right [place] Diagnosis 1 Skin lesion (L98.9) Referral Organization Otilio Damon III, MD Referring Provider First Name Otilio Referring Provider Last Name Marisol Referring Provider Speciality Internal M edicine Referred Provider [facility] ([place]) Referred Provider Specialty Dermatology General Notes Germiane Devries CM 05/17/2024 10:01:28 AM EDT > ref/demo/progress note faxed to [facility] pt stated she has been seen by Dr Miles before and she was told to call the office for appt , Germaine Devries CMA 05/24/2024 02:54:09 PM EDT > Pt saw Dr Miles on 05/20/2024 Referral Priority Routine Referral Appointment Date 05/20/2024 Medications Medication SIG (Take, Route, Frequency, Duration) Notes Start Date End Date Status Eliquis 5 MG TAKE 1 TABLET BY JULI TH TWICE A DAY FOR 90 DAYS Active Rosuvastatin Calcium 40 MG TAKE 1 TABLET BY MOUTH EVERY DAY FOR 90 DAYS Active Multi Vitamin Daily - 1 tablet Orally On ce a day Active Zithromax Z-Corey 250 MG 2 tablets on the first day, then 1 tablet daily for 4 days Orally Once a day for 5 days 09/01/2024 09/06/2024 Active Metoprolol Tartrate 25 MG TAKE 1 TABLET BY MOUTH TWICE A DAY WITH FOOD FOR 90 DAYS Active Vitamin D-[address] 25 MCG (1000 UT) TAKE 1 TABLET BY MOUTH EVERY DAY Active Therapeutic-M - TAKE 1 TABLET BY JULI TH EVERY DAY AFTER BREAKFAST Active Azithromycin 250 MG as directed Orally 2 Tablets on the first day, one tablet the rest of the days for 5 days 07/19/2024 Active Flecainide Acetate 50 MG TAKE ONE TAB BY MOUTH TWICE DAILY FOR 30 DAYS Oral Active Calcium Carbonate 1250 (500 Ca) MG 1 tablet with food Orally Twice a day Active Hydrocortisone 1 % 1 application Externally Once a day 05/16/2024 Active Amiodarone HCl 200 MG 1 tablet Orally On ce a day 05/16/2024 Active Immunizations Vaccine Route Administration Date Status Comme nts Influenza IM Intramuscular 06/29/2014 Administered Tetanus and Diphtheria Toxoids Adsorbed IM Intramuscular 06/29/2014 Administered Influenza IM Intramuscular 05/29/2016 Administered Influenza no Preserv 3 and > IM Intramuscular 07/10/2017 Administered Influenza no Preserv 3 and > IM Intramuscular 07/08/2019 Administered Influenza, quad IM Intramuscular 06/11/2021 Administered PCV13 Unknown 06/28/2020 Administered Influenza Vaccine Afluria IM Intramuscular 05/16/2024 Admi nistered Decline: Influenza Unknown 06/16/2014 Refused Social History Tobacco Use: Social History Observation Description Date Details (start date - stop date) Never Smoker NA - NA Sex Assigned At : Social History Observation Description Sex Assigned At Female Tobacco Use/Smoking Question Answer Notes Patient is a nonsmoker Additional Findings: Tobacco Non-User Aggressive non-smoker Alcohol Screen Question Answer Notes Did you have a drink containing alcohol in the p ast year? No Points 0 Interpretation Negative Problems Problem Type SNOMED Code ICD Code Onset Dates Problem Status W/U Status Risk Notes Problem 552039289 Lumbar radiculopathy (M54.16) Active confirmed I recommended n o heavy lifting combined with rest meloxicam and feet. The back pain is minimal and only intermittent at this point. Problem 1688098 Supraventricular tachycardia (I47.1) Active confirmed She has a history of SVT and is seen by cardiology. Problem 740424520 Paroxysmal atria l fibrillation (I48.0) Active confirmed She is in fiorella l sinus rhythm today. She had a cardiac ablation procedure last week to control her Heart rate. Problem 902417136 Anticoagulated (Z79.01) Active confirmed She is taking 5 mg of Eliquis twice a day and has had no bleeding. She is compliant with this therapy. Problem Osteoporosis (33263445) Osteoporosis (M81.0) Active confirmed She is asymptomatic. A bone density test has been ordered. She will continue on current therapy now. Problem 22485307 Other and unspecified hyperlipidemia (E78.5) Active confirmed The most recent lipid profile showed good control of her lipids. Her weight is in the normal range. We discussed diet and nutrition. No change was made in her regimen. Problem 660199948 Onychomycosis (B35.1) Active confirmed Her toenails today recovered with nail sudanese but she reports that the problem is mild and she does not require treatment at this time. Problem 45447720 Depressive disorder, not elsewhere classified (F32.9) Active confirmed Her depression is mild to moderate and she is discouraged at how long it is taking her to recover. No change in her regimen was necessary today. She is going to be observed frequently. Problem 066561614 Environmental allergies (Z91.09) Active confirmed We have discussed an approach to her allergy symptoms now that it is pollen season. I have recommended the use of antihistamines and fluticasone with pseudoephedrine. Problem Migraine (65848046) Migraine (G43.909) Active confirmed Her migraine headaches have been less frequent and are well controlled with Imitrex. No change in his regimen as needed. Problem 42278915 Vitamin D deficiency (E55.9) Active confirmed He was continue d on supplementation. Problem 21658475 Bilateral vitreous detachment (H43.813) Active confirmed She will continue under the care of her photography editor for this problem. 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 She has not noticed any change since the viral infection. 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 I recommended avoiding heavy lifting and straining. 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 She remains anticoagulated. Vital Signs Heart Rate 54 /min 06/27/2024 Temperature 96.8 degrees Fahrenheit 06/27/2024 Blood pressure diastolic 68 mm Hg 06/27/2024 Height 65 in 07/19/2024 Blood pressure systolic 126 mm Hg 06/27/2024 Weight 147 lbs 07/19/2024 BMI 24.46 kg/m2 07/19/2024 Encounters Encounter Location Date Provider Diagnosis Otilio Damon III, MD [address] [place] [address] [address], [place] [address] 12/11/2023 Otilio Damon Thalamic infarct, ac gasper I63.81 ; Depressive disorder, not elsewhere classified F32.9 ; Onychomycosis B35.1 ; Supraventricular tachycardia I47.1 ; Conjunctival xerosis of both eyes H11.143 ; Displacement of cervical intervertebral disc without myelopathy M50.20 ; Lumbar radiculopathy M54.16 ; Osteoporosis M81.0 ; Paroxysmal atrial fibrillation I48.0 ; Anticoagulated Z79.01 and Environmental allergies Z91.09 Otilio Damon III, MD [address] [place] [address] [place] [address] 02/05/2024 Otilio Damon Thalamic infarct, ac gasper I63.81 ; Other and unspecified hyperlipidemia E78.5 ; Vitamin D deficiency E55.9 ; Depressive disorder, not elsewhere classified F32.9 ; Onychomycosis B35.1 ; Conjunctival xerosis of both eyes H11.143 ; Lumbar radiculopathy M54.16 ; Other secondary osteoarthritis of multiple sites M15.3 and Paroxysmal atrial fibrillation I48.0 Otilio Damon III, MD [address] [place] [address] [place] [address] 04/08/2024 Otilio Damon Thalamic infarct, ac gasper I63.81 ; Laceration of right lower extremity, initial encounter S81.811A ; Supraventricular tachycardia I47.1 ; Onychomycosis B35.1 ; Depressive disorder, not elsewhere classified F32.9 ; Conjunctival xerosis of both eyes H11.143 ; Displacement of cervical intervertebral disc without myelopathy M50.20 ; Lumbar radiculopathy M54.16 ; Osteoporosis M81.0 ; Paroxysmal atrial fibrillation I48.0 and Anticoagulated Z79.01 Otilio Damon III, MD [address] [place] [address] [place] [address] 05/16/2024 Otilio Damon Thalamic infarct, ac gasper I63.81 ; Other and unspecified hyperlipidemia E78.5 ; Other secondary osteoarthritis of multiple sites M15.3 ; Vitamin D deficiency E55.9 ; Paroxysmal atrial fibrillation I48.0 ; Encounter for immunization Z23 ; Depressive disorder, not elsewhere classified F32.9 ; Conjunctival xerosis of both eyes H11.143 ; Osteoporosis M81.0 and SVT (supraventricular tachycardia) 427.89 Otilio Damon III, MD [address] [place] [address] [place] [address] 06/27/2024 Otilio Damon Thalamic infarct, ac gasper I63.81 ; Paroxysmal atrial fibrillation I48.0 ; Depressive disorder, not elsewhere classified F32.9 ; Onychomycosis B35.1 ; Conjunctival xerosis of both eyes H11.143 ; Displacement of cervical intervertebral disc without myelopathy M50.20 ; Other and unspecified hyperlipidemia E78.5 ; Lumbar radiculopathy M54.16 ; Osteoporosis M81.0 and Anticoagulated Z79.01 Otilio Damon III, MD [address] [place] [address] [place] [address] 07/19/2024 Otilio Damon Acute bronchitis, unspecified organism J20.9 ; Refractory chronic cough R05.3 ; Depressive disorder, not elsewhere classified F32.9 and Lumbar radiculopathy M54.16 Otilio Damon III, MD [address] [place] [address] [place] [address] 11/05/2023 Otilio Damon III, MD [address] [place] [address] [place] [address] 11/05/2023 Otilio Damon III, MD [address] [place] [address] [place] [address] 11/10/2023 Otilio Damon III, MD [address] [place] [address] [place] [address] 04/27/2024 Otilio Damon III, MD [address] [place] [address] [place] [address] 04/27/2024 Otilio Damon III, MD [address] [place] [address] [place] [address] 04/07/2024 Otilio Damon III, MD [address] [place] [address] [place] [address] 09/01/2024 Otilio Damon Acute cough R05.1 an d Chest congestion R09.89 Assessments Encounter Date Diagnosis (ICD Code) Assessment Notes T reatment Notes Treatment Clinical Notes 12/11/2023 Depressive disorder, not elsewhere classified (ICD-10 - F32.9) Her depression is mild to moderate and she is discouraged at how long it is taking her to recover. No change in her regimen was necessary today. She is going to be observed frequently. 12/11/2023 Thalamic infarct, acute (ICD-10 - I63.81) She was continued on current medication. She has resumed all of the activities daily life. No residual neurologic deficit was evident today. 02/05/2024 Other and unspecifie d hyperlipidemia (ICD-10 - E78.5) Her lipids are currently stable and in near target range. No change in her regimen as needed. 02/05/2024 Thalamic infarct, acute (ICD-10 - I63.81) She was continued on current medication. She has resumed all of the activities daily life. No residual neurologic deficit was evident today. 04/08/2024 Laceration of right lower extremity, initial encounter (ICD-10 - S81.811A) Result mild superficial infection with erythema. She was given a prescription for doxycycline. The wound is healing well. 04/08/2024 Thalamic infarct, acute (ICD-10 - I63.81) She was continued on current medication. She has resumed all of the activities daily life. No residual neurologic deficit was evident today. 05/16/2024 Other and unspecifie d hyperlipidemia (ICD-10 - E78.5) The most recent lipid profile showed good control of her lipids. Her weight is in the normal range. We discussed diet and nutrition. No change was made in her regimen. 05/16/2024 Thalamic infarct, acute (ICD-10 - I63.81) She was continued on current medication. She has resumed all of the activities daily life. No residual neurologic deficit was evident today. 06/27/2024 Paroxysmal atrial fibrillation (ICD-10 - I48.0) She is in normal sinus rhythm today. She had a cardiac ablation procedure last week to control her Heart rate. 06/27/2024 Thalamic infarct, acute (ICD-10 - I63.81) Since this event she has had no further neurological complaints. She remains anticoagulated. 07/19/2024 Acute bronchitis, unspecified organism (ICD-10 - J20.9) She was given a prescription for an antibiotic. We discussed symptomatic treatment of the cough. She will rest and consume fluids. 07/19/2024 Refractory chronic cough (ICD-10 - R05.3) She has had no relief with dextromethorphan preparations. I have given her a prescription for guaifenesinAC. 09/01/2024 Acute cough (ICD-10 - R05.1) 12/11/2023 Onychomycosis (ICD-1 0 - B35.1) Her toenails today recovered with nail sudanese but she reports that the problem is mild and she does not require treatment at this time. 02/05/2024 Vitamin D deficiency (ICD-10 - E55.9) She was continued on her supplement. 04/08/2024 Supraventricular tachycardia (ICD-10 - I47.1) She has a history of SVT and is seen by cardiology. 05/16/2024 Other secondary osteoarthritis of multiple sites (ICD-10 - M15.3) The arthritic symptoms are mild at this time and have not been a significant problem for her. 06/27/2024 Depressive disorder, not elsewhere classified (ICD-10 - F32.9) Her depression is mild to moderate and she is discouraged at how long it is taking her to recover. No change in her regimen was necessary today. She is going to be observed frequently. 07/19/2024 Depressive disorder, not elsewhere classified (ICD-10 - F32.9) Her depression is mild to moderate and she is discouraged at how long it is taking her to recover. No change in her regimen was necessary today. She is going to be observed frequently. 09/01/2024 Chest congestion (ICD-10 - R09.89) 12/11/2023 Supraventricular tachycardia (ICD-10 - I47.1) She has a history of SVT and is seen by cardiology. 02/05/2024 Depressive disorder, not elsewhere classified (ICD-10 - F32.9) Her depression is mild to moderate and she is discouraged at how long it is taking her to recover. No change in her regimen was necessary today. She is going to be observed frequently. 04/08/2024 Onychomycosis (ICD-1 0 - B35.1) Her toenails today recovered with nail sudanese but she reports that the problem is mild and she does not require treatment at this time. 05/16/2024 Vitamin D deficiency (ICD-10 - E55.9) He was continued on supplementation. 06/27/2024 Onychomycosis (ICD-1 0 - B35.1) Her toenails today recovered with nail sudanese but she reports that the problem is mild and she does not require treatment at this time. 07/19/2024 Lumbar radiculopathy (ICD-10 - M54.16) I recommended no heavy lifting combined with rest meloxicam and feet. The back pain is minimal and only intermittent at this point. 12/11/2023 Conjunctival xerosis of both eyes (ICD-10 - H11.143) She continues with the eyedrops. She has not noticed any change since the viral infection. Vision is reported to be normal 02/05/2024 Onychomycosis (ICD-1 0 - B35.1) Her toenails today recovered with nail sudanese but she reports that the problem is mild and she does not require treatment at this time. 04/08/2024 Depressive disorder, not elsewhere classified (ICD-10 - F32.9) Her depression is mild to moderate and she is discouraged at how long it is taking her to recover. No change in her regimen was necessary today. She is going to be observed frequently. 05/16/2024 Paroxysmal atrial fibrillation (ICD-10 - I48.0) She is in normal sinus rhythm today. She had a cardiac ablation procedure last week to control her Heart rate. 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 She has not noticed any change since the viral infection. Vision is reported to be normal 12/11/2023 Displacement of cervical intervertebral disc without myelopathy (ICD-10 - M50.20) She has only occasional pain in her neck with range of motion. I recommended avoiding heavy lifting and straining. 02/05/2024 Conjunctival xerosis of both eyes (ICD-10 - H11.143) She continues with the eyedrops. She has not noticed any change since the viral infection. Vision is reported to be normal 04/08/2024 Conjunctival xerosis of both eyes (ICD-10 - H11.143) She continues with the eyedrops. She has not noticed any change since the viral infection. Vision is reported to be normal 05/16/2024 Encounter for immunization (ICD-10 - Z23) He was given influenza vaccine today. 06/27/2024 Displacement of cervical intervertebral disc without myelopathy (ICD-10 - M50.20) She has only occasional pain in her neck with range of motion. I recommended avoiding heavy lifting and straining. 12/11/2023 Lumbar radiculopathy (ICD-10 - M54.16) I recommended no heavy lifting combined with rest meloxicam and feet. The back pain is minimal and only intermittent at this point. 02/05/2024 Lumbar radiculopathy (ICD-10 - M54.16) I recommended no heavy lifting combined with rest meloxicam and feet. The back pain is minimal and only intermittent at this point. 04/08/2024 Displacement of cervical intervertebral disc without myelopathy (ICD-10 - M50.20) She has only occasional pain in her neck with range of motion. I recommended avoiding heavy lifting and straining. 05/16/2024 Depressive disorder, not elsewhere classified (ICD-10 - F32.9) Her depression is mild to moderate and she is discouraged at how long it is taking her to recover. No change in her regimen was necessary today. She is going to be observed frequently. 06/27/2024 Other and unspecifie d hyperlipidemia (ICD-10 - E78.5) The most recent lipid profile showed good control of her lipids. Her weight is in the normal range. We discussed diet and nutrition. No change was made in her regimen. 12/11/2023 Osteoporosis (ICD-10 - M81.0) She is asymptomatic. A bone density test has been ordered. She will continue on current therapy now. 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 She will continue on current therapy without change. She is doing well. 04/08/2024 Lumbar radiculopathy (ICD-10 - M54.16) I recommended no heavy lifting combined with rest meloxicam and feet. The back pain is minimal and only intermittent at this point. 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 She has not noticed any change since the viral infection. Vision is reported to be normal 06/27/2024 Lumbar radiculopathy (ICD-10 - M54.16) I recommended no heavy lifting combined with rest meloxicam and feet. The back pain is minimal and only intermittent at this point. 12/11/2023 Paroxysmal atrial fibrillation (ICD-10 - I48.0) She did not have a diagnosis of atrial fibrillation prior to the stroke. She does have a history of supraventricular tachycardia. She is now anticoagulated. She was in a regular sinus rhythm today. 02/05/2024 Paroxysmal atrial fibrillation (ICD-10 - I48.0) She did not have a diagnosis of atrial fibrillation prior to the stroke. She does have a history of supraventricular tachycardia. She is now anticoagulated. She is now in chronic atrial fibrillation and has an ablation procedure scheduled March 16, 2024. 04/08/2024 Osteoporosis (ICD-10 - M81.0) She is asymptomatic. A bone density test has been ordered. She will continue on current therapy now. 05/16/2024 Osteoporosis (ICD-10 - M81.0) She is asymptomatic. A bone density test has been ordered. She will continue on current therapy now. 06/27/2024 Osteoporosis (ICD-10 - M81.0) She is asymptomatic. A bone density test has been ordered. She will continue on current therapy now. 12/11/2023 Anticoagulated (ICD-10 - Z79.01) She is taking 5 mg of Eliquis twice a day and has had no bleeding. She is compliant with this therapy. 04/08/2024 Paroxysmal atrial fibrillation (ICD-10 - I48.0) She did not have a diagnosis of atrial fibrillation prior to the stroke. She does have a history of supraventricular tachycardia. She is now anticoagulated. She is now in chronic atrial fibrillation and has an ablation procedure scheduled March 16, 2024. 05/16/2024 SVT (supraventricula r tachycardia) (ICD9-CM - 427.89) She has had no further episodes of supraventricular tachycardia. Advised her to inform me if she develops. 06/27/2024 Anticoagulated (ICD-10 - Z79.01) She is taking 5 mg of Eliquis twice a day and has had no bleeding. She is compliant with this therapy. 12/11/2023 Environmental allergies (ICD-10 - Z91.09) We have discussed an approach to her allergy symptoms now that it is pollen season. I have recommended the use of antihistamines and fluticasone with pseudoephedrine. 04/08/2024 Anticoagulated (ICD-10 - Z79.01) She is taking 5 mg of Eliquis twice a day and has had no bleeding. She is compliant with this therapy. Plan Of Treatment Pending Test Test Name Order Date URINE DIP STICK 02/13/2020 PROFILE, FASTING (COMPREHENSIVE METABOLI C) 12/20/2018 PROFILE, FASTING (COMPREHENSIVE METABOLI C) 04/02/2023 PROFILE, FASTING (COMPREHENSIVE METABOLI C) 12/09/2017 PROFILE, FASTING (COMPREHENSIVE METABOLI C) 11/27/2020 PROFILE, FASTING (COMPREHENSIVE METABOLI C) 08/11/2023 PROFILE, FASTING (COMPREHENSIVE METABOLI C) 03/17/2017 PROFILE, FASTING (COMPREHENSIVE METABOLI C) 08/09/2018 PROFILE, FASTING (COMPREHENSIVE METABOLI C) 04/17/2020 PROFILE, FASTING (COMPREHENSIVE METABOLI C) 09/19/2019 PROFILE, FASTING (COMPREHENSIVE METABOLI C) 06/26/2020 PROFILE, FASTING (COMPREHENSIVE METABOLI C) 05/12/2023 PROFILE, FASTING (COMPREHENSIVE METABOLI C) 05/16/2024 PROFILE, FASTING (COMPREHENSIVE METABOLI C) 04/05/2018 PROFILE, FASTING (COMPREHENSIVE METABOLI C) 05/29/2021 PROFILE, FASTING (COMPREHENSIVE METABOLI C) 02/05/2024 PROFILE, RANDOM (COMPREHENSIVE METABOLIC ) 03/07/2015 HEMOGLOBIN A1C (GLYCOHEMOGLOBIN) 020 MAGNESIUM 04/05/2018 LIPID PANEL 04/05/2018 LIPID PANEL 12/20/2018 LIPID PANEL 04/02/2023 LIPID PANEL 12/09/2017 LIPID PANEL 11/27/2020 LIPID PANEL 03/07/2015 LIPID PANEL 03/17/2017 LIPID PANEL 08/09/2018 LIPID PANEL 04/17/2020 LIPID PANEL 09/19/2019 LIPID PANEL 06/26/2020 LIPID PANEL 05/12/2023 VITAMIN B12 AND FOLATE 04/17/2020 CBC w DIFF 06/26/2020 CBC w DIFF 05/12/2023 CBC w DIFF 04/17/2020 CBC w DIFF 05/29/2021 CBC w DIFF 04/05/2018 CBC w DIFF 12/20/2018 CBC w DIFF 04/02/2023 CBC w DIFF 12/09/2017 CBC w DIFF 12/10/2022 CBC w DIFF 11/27/2020 CBC w DIFF 03/07/2015 CBC w DIFF 03/17/2017 CBC w DIFF 08/09/2018 CBC w DIFF 05/16/2024 CBC w DIFF 09/19/2019 SED RATE (ESR) 04/17/2020 INFLUENZA SCREEN 12/13/2015 XR CHEST 2 VIEW PA & LAT 09/25/2020 BONE DENSITY DEXA 05/12/2023 MAMMOGRAM DIGITAL BILATERAL SCREEN 08/16 MAMMOGRAM DIGITAL BILATERAL SCREEN 04/17 MAMMOGRAM DIGITAL BILATERAL SCREEN 05/08 VITAMIN D 25-OH TOTAL 09/19/2019 CBC WITH AUTO DIFF 02/05/2024 CBC WITH AUTO DIFF 08/11/2023 SARS COV2 IGG 09/10/2020 Lipid Panel 05/16/2024 Lipid Panel 05/29/2021 Lipid Panel 02/05/2024 Lipid Panel 08/11/2023 Vitamin D 25-OH Total 05/16/2024 Vitamin D 25-OH Total 02/05/2024 ECG holter monitor 48 hour 12/10/2022 Next Appt Details Provider Name:Otilio Damon, 05/19/2025 10:00:00 AM, [address] [place] [address] [address], [place], [address], Insurance Providers Payer Name Payer Address Payer Phone Subscriber Number Group Number Insured Name Patient Relationship to Insured Coverage Start Date Coverage End Date [employer]vantage [address] [address] [place] [address] [id number] Katheryn Cerna Self - patient is the insured MEDICARE NGS [address] [place] [phone] [id number] Katheryn Cerna Self - patient is the insured Medical (General) History Medical History History ICD Code depression onychomycosis asthma HNP, DJD, LSS osteopenia SVT vitreous detachment xerophthalmia Stroke 03/18/23 Surgical History Surgery Date(Month/Year) colonoscopy hyperplastic polyp 2005 Cardiac ablasion 05/2024 Cardiac ablation procedure [facility] 05/2024 Ablation surgery Heart surgery Hospitalization History Reason Date(Month/Year) Covid-19 10/2019
--- OUTSIDE RECORDS SUMMARY | 2024-09-02 06:58 | XMS_ITS ---
Author Organization Otilio Damon III, MD Address [address] [place] [address] Care Team Providers Care Fish Header Name Role Phone Otilio Daomn Primary Care Provider Allergies Allergen (clinical drug [...] Date Provider Diagnosis Otilio Damon III, MD [address] [place] [address] [place] [address] 07/19/2024 Otilio Damon Acute bronchitis, unspecified organism [...] days 07/19/2024 Hydrocortisone 1 % 1 application Blood Bank Calendar Control Clerk ally Once a day 05/16/2024 Amiodarone HCl [...] azithromycin Provider Name:Otilio Damon, 05/19/2025 10:00:00 AM, [address] [place] [address] [address], [place], [address], Progress Notes * Katheryn CERNA LDOB:[birth year] (78 yo F)Acc No.[id number]:07/19/2024 Patient:?Katheryn CERNA Provider:?Otilio Damon MD :1945???Age:78 Y???Sex:Female D ate:07/19/2024 Address:[address] [id number] Subjective: * Chief Complaints: * ???Acute bronchitisCard sche d ett and echo tariq stiop amkodarone start /2 mulltaq danuta ham and frank1 week refractory coughChest * HPI: ???:?Telehealth?Location of provider rendering services:?{...} [address] [facility] [address] ?Location of patient:?address listed in demographics for today's visit ?Patient identification confirmed using:?Name, ?Telehealth method:?Telephone only. Patient not visible to care provider. ?Consent:?Patient verbally consented to treatment, Patient verbally consented to billing insurance company, Patient informed of any privacy concerns related to method of visit ?Total time spent with patient (mins)?15 ?The patient, a 78-year-old female, presented with a persistent cough that she has been experiencing for some time. She reported a similar episode last year or earlier this year, which was resolved with an antibiotic prescribed by her welder fitter helper. The patient could not recall the name of the antibiotic but mentioned that it was taken around the clock for seven days. The patient also mentioned that she has tried Mucinex and other eqma-hjr-ahbpkoa medications, but they have not been very effective. The patient also reported having an echocardiogram and a stress test scheduled by her gold leaf laborer. She mentioned that she was advised to stop taking amiodarone and start taking one half tablet ofMultaq twice a day. The patient also mentioned that she had heart surgery in the past and was told that her heart was very scarred. * ROS:?General/Constitutional:?pain?only normal aches and pains.?Chills?denies.?Fatigue?admits.?Fever?denies.?ENT:?Decreased hearing?mild.?Respiratory:?Cough?non-productive.?Cardiovascular:?Chest pain with exertion?denies.?Dyspnea on exertion?denies.?Shortness of breath?denies.?Gastrointestinal:?Constipation?occasional.?Decreased appetite?that is not associated with weight loss.?Diarrhea?denies.?Heartburn?denies.?Nausea?denies.?Rectal bleeding?denies.?Vomiting?denies.?Hematology:?bruising?denies.?petechiae?denies.?Swollen glands?none have been noted.?Genitourinary:?Frequent urination?denies.?Musculoskeletal:?Muscle aches?denies.?Painful joints?denies.?Sciatica?denies.?Weakness?denies.?Skin:?Itching?denies.?Rash?denies.?Skin lesion(s)?denies.?Neurologic:?Difficulty speaking?denies.?Dizziness?denies.?Headache?denies.?Low back pain?denies.?Psychiatric:?Depressed mood?which is mild.? * Medical History:? * Surgical History:?colonoscop y hyperplastic polyp 2005Cardiac ablasion ardiac ablation procedure [facility] blation surgery Heart surgery * Hospitalization/Major Diagno stic Procedure:?Covid-19 10/2019 * Family History:?Father: dece ased 40 yrs.?Mother: 79 yrs, cad.?3 brother(s) , 1 sister(s) . .? Her mother had breast cancer at 65. Her brother, Stone, has hemochromotosis trait or disease. Youngest brother Blair has ferriltin of 600 and his son is 4000. She is not aware of any family history of mental illness or addiction or substance abuse. Father at 40. * Social History:?Tobacco Use:?Tobacco Use/Smoking?Patient is a?nonsmoker ?Additional Findings: Tobacco Non-User?Aggressive non-smoker ???She has been to [place] for 42 years. She has 2 children who are well. She is working as a telecom managing consultant clinical professor. She was born in [place]. * Medications:?TakingTherapeut ic-M - Tablet TAKE 1 TABLET BY MOUTH [...] reviewed and reconciled with the patient * Allergies:?Seasonaleno[Aller gies Verified] Objective: * Vitals:?Ht: 65, Wt:147, BMI: 24.46, Wt-k.68. Assessment: * Assessment: 1.?Acute bronchitis, unspeci fied organism - J20.9 (Primary)???Notes :She was given a prescription for an antibiotic.? We discussed symptomatic treatment of the cough.? She will rest and consume fluids.???2.?Refractory chronic cough - R05.3???Notes :She has had no relief with dextromethorphan preparations.? I have given her a prescription for guaifenesinAC.???3.?Depressive disorder, not elsewhere classified - F32.9???Notes :Her depression is mild to moderate and she is discouraged at how long it is taking her to recover. No change in her regimen was necessary today. She is going to be observed frequently.???4.?Lumbar radiculopathy - M54.16???Notes :I recommended no heavy lifting combined with rest meloxicam and feet. The back pain is minimal and only intermittent at this point.??? Plan: * Treatment: * Procedure Codes:? * Follow Up:?Thursday (Reason: T o report on progress after taking azithromycin) * Images: * Sign off status: Completed true * Provider:?Otilio Damon MD Date:?07/01 Generated for Gagandeep sawyer/Robson/Mirandaitting on:?09/02/2024 06:57 AM EST History and Physical Notes * HPI (History of Present Illness) Category Sub-Category Detail Notes Telehealth Location of [facility] rendering services:: {...} [address] [place] [address] Location of patient:: address listed in demographics [...]
== END 2024-09-02 06:56 | disposition home or self-care (01) ==
LOC: HO.XRAY 06:55
PROVIDERS: PCP Internal Medicine Medical Oncology; Visit Provider Internal Medicine Medical Oncology
DX: R05.1 Acute cough (principal); R09.89 Other specified symptoms and signs involving the circulatory and respiratory systems
CPT/HCPCS: 71046

== ENCOUNTER → 2024-09-02 07:00 | Outpatient (BNV) | payer MEDICARE, SELFPAY | PROVIDERS: PCP Internal Medicine Medical Oncology; Visit Provider Radiology Vascular & Interventional Radiology | DX: R05.1 Acute cough (principal) | CPT/HCPCS: 71046 ==

== ENCOUNTER 2025-05-15 09:54 | Outpatient (REF) | payer MEDICARE, SELFPAY ==
--- OUTSIDE RECORDS SUMMARY | 2024-06-27 06:00 | XMS_ITS ---
Author Organization Otilio Damon III, MD Address [address] [place] [address] [place] [address] Care Team Providers Care Carpentry Instructor Name Role Phone Otilio Damon Primary Care Provider Allergies Allergen (clinical drug ingredient) Drug/Non Drug Allergy documented on EMR Reaction Allergy Type Onset Date Status Seasonale Unknown Drug Allergy Active REASON FOR VISIT Atrial fibrillation, Recent cardiac ablation, History of depression, cervical arthritis, Hyperlipidemia, Osteoporosis, History of thalamic infarction, Anticoagulated Medications Medication SIG (Take, Route, Frequency, Duration) Notes Start Date End Date Status Vitamin D-[address] Max [address] 25 MCG (1000 UT) TAKE 1 TABLET BY MOUTH EVERY DAY Active Rosuvastatin Calcium 40 MG TAKE 1 TABLET BY MOUTH EVERY DAY FOR 90 DAYS Active Eliquis 5 MG TAKE 1 TABLET BY JULI TH TWICE A DAY FOR 90 DAYS Active Metoprolol Tartrate 25 MG TAKE 1 TABLET BY MOUTH TWICE A DAY WITH FOOD FOR 90 DAYS Active Multi Vitamin Daily - 1 tablet Orally On ce a day Active Therapeutic-M - TAKE 1 TABLET BY JULI TH EVERY DAY AFTER BREAKFAST Active Amiodarone HCl 200 MG 1 tablet Orally On ce a day 05/16/2024 Active Hydrocortisone 1 % 1 application Physics Teacher ally Once a day 05/16/2024 Active Calcium Carbonate 1250 (500 Ca) MG 1 tablet with food Orally Twice a day Active Flecainide Acetate 50 MG TAKE ONE TAB BY MOUTH TWICE DAILY FOR 30 DAYS Oral Active Social History Tobacco Use: Social History Observation Description Date Details (start date - stop date) Never Smoker NA - NA Sex Assigned At : Social History Observation Description Sex Assigned At Female Tobacco Use/Smoking Question Answer Notes Patient is a nonsmoker Additional Findings: Tobacco Non-User Aggressive non-smoker Vital Signs Temperature 96.8 degrees Fahrenheit 06/27/20 24 Blood pressure systolic 126 mm Hg 06/27/20 24 Blood pressure diastolic 68 mm Hg 024 Heart Rate 54 /min 06/27/2024 Height 65 in 06/27/2024 Weight 147 lbs 06/27/2024 BMI 24.46 kg/m2 06/27/2024 Encounters Encounter Location Date Provider Diagnosis Otilio Damon III, MD [address] [place] [address] [place] [address] 06/27/2024 Otilio Damon Thalamic infarct, ac gasper I63.81 ; Paroxysmal atrial fibrillation I48.0 ; Depressive disorder, not elsewhere classified F32.9 ; Onychomycosis B35.1 ; 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 She remains anticoagulated. 06/27/2024 Paroxysmal atrial fibrillation (ICD-10 - I48.0) She is in normal sinus rhythm today. She had a cardiac ablation procedure last week to control her Heart rate. 06/27/2024 Depressive disorder, not elsewhere classified (ICD-10 - F32.9) Her depression is mild to moderate and she is discouraged at how long it is taking her to recover. No change in her regimen was necessary today. She is going to be observed frequently. 06/27/2024 Onychomycosis (ICD-1 0 - B35.1) Her toenails today recovered with nail botswanan but she reports that the problem is mild and she does not require treatment at this time. 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 She has not noticed any change since the viral infection. Vision is reported to be normal 06/27/2024 Displacement of cervical intervertebral disc without myelopathy (ICD-10 - M50.20) She has only occasional pain in her neck with range of motion. I recommended avoiding heavy lifting and straining. 06/27/2024 Other and unspecifie d hyperlipidemia (ICD-10 - E78.5) The most recent lipid profile showed good control of her lipids. Her weight is in the normal range. We discussed diet and nutrition. No change was made in her regimen. 06/27/2024 Lumbar radiculopathy (ICD-10 - M54.16) I recommended no heavy lifting combined with rest meloxicam and feet. The back pain is minimal and only intermittent at this point. 06/27/2024 Osteoporosis (ICD-10 - M81.0) She is asymptomatic. A bone density test has been ordered. She will continue on current therapy now. 06/27/2024 Anticoagulated (ICD-10 - Z79.01) She is taking 5 mg of Eliquis twice a day and has had no bleeding. She is compliant with this therapy. Plan Of Treatment Medication Medication Name Sig Start Date Stop Date Notes Vitamin D-[address] Max [address] 25 MCG (1000 UT) TAKE 1 TABLET BY MOUTH EVERY DAY Rosuvastatin Calcium 40 MG TAKE 1 TABLET BY MOUTH EVERY DAY FOR 90 DAYS Eliquis 5 MG TAKE 1 TABLET BY JULI TH TWICE A DAY FOR 90 DAYS Metoprolol Tartrate 25 MG TAKE 1 TABLET BY MOUTH TWICE A DAY WITH FOOD FOR 90 DAYS Multi Vitamin Daily - 1 tablet Orally Once a day Therapeutic-M - TAKE 1 TABLET BY JULI TH EVERY DAY AFTER BREAKFAST Amiodarone HCl 200 MG 1 tablet Orally Once a day Hydrocortisone 1 % 1 application Physics Teacher ally Once a day 05/16/2024 Calcium Carbonate 1250 (500 Ca) MG 1 tablet with food Orally Twice a day Flecainide Acetate 50 MG TAKE ONE TAB BY MOUTH TWICE DAILY FOR 30 DAYS Oral Next Appt Details Follow Up: 4 Weeks, In about four weeks, Reason: Telehealth, Follow up on patient's condition post-ablation surgery Provider Name:Otilio Damon, 05/19/2025 10:00:00 AM, [address] [place] [address] [place], [address], Progress Notes * Katheryn CERNA LDOB:[birth year] (78 yo F)Acc No.[id number]:06/27/2024 Progress Notes Patient: Katheryn JACKSON Provider: Zuleika Damon MD :1945 A ge:78 Y S ex:Female Date:06/27/2024 Address:[address] [place], [place] [id number] Subjective: * Chief Complaints: * A trial fibrillationRecent cardiac ablationHistory of depressionCervical arthritisHyperlipidemiaOsteoporosisHistory of thalamic infarctionAnticoagulated * HPI: C OVID-19 Screening: Questions H ave you experienced fever, chills, cough, sore throat, shortness of breath, difficulty breathing, muscle aches, loss of taste or smell? N o H ave you been exposed to the virus within the last 10 days? N o H ave you travelled internationally in the last 10 days? N o H ave you been exposed to COVID-19 in the past? Y es * : The patient, a 78-year-old female, reported having undergone ablation surgery. She was prescribed amiodarone, which was gradually reduced post-surgery. She reported experiencing some discomfort and heavier breathing while walking, which would subside after resting for a few seconds. She also mentioned a change in her sinus rhythm, which she monitored using her watch. The patient also reported having a cut on her leg, which was treated by a pulp screen operator. She was also on blood thinners, which caused bruising. The patient was scheduled to see a wool cleaner in a few weeks. * ROS: G eneral/Constitutional: pain o nly normal aches and pains. C hills d enies.?Fatigue a dmits. F ever d enies. E NT: Decreased hearing d enies. R espiratory: Cough d enies. C ardiovascular: Chest pain with exertion d enies. D yspnea on exertion?denies. S hortness of breath t hat is mild. G astrointestinal: Constipation o ccasional. D ecreased appetite d enies. D iarrhea d enies. H eartburn d enies. N ausea d enies. R ectal bleeding d enies. V omiting d enies. H ematology: bruising d enies. p etechiae d enies. S wollen glands n one have been noted. G enitourinary: Frequent urination d enies. M usculoskeletal: Muscle aches d enies. P ainful joints d enies. S ciatica d enies. W eakness d enies. S kin: Itching d enies. R nguyễn d enies. S kin lesion(s)?denies. N eurologic: Difficulty speaking d enies. D izziness d enies.?Headache d enies. L ow back pain d enies. P sychiatric: Depressed mood w hich is mild. * Medical History: * Surgical History: c olonoscopy hyperplastic polyp 2004Cardiac ablasion ardiac ablation procedure [facility] blation surgery * Hospitalization/Major Diagno stic Procedure: C ovid-19 10/2019 * Family History: F ather: 40 yrs, mi. M other: 79 yrs, cad. 3 brother(s) , 1 sister(s) . . Her mother had breast cancer at 65. Her brother, Stone, has hemochromotosis trait or disease. Youngest brother Blair has ferriltin of 600 and his son is 4000. She is not aware of any family history of mental illness or addiction or substance abuse. * Social History: T obacco Use: T obacco Use/Smoking P atient is a n onsmoker A dditional Findings: Tobacco Non-User A ggressive non-smoker S he has been to June for 42 years. She has 2 children who are well. She is working as a telecom digital media sales consultant. She was born in [place]. * Medications: T akingRosuvastatin Calcium 40 MG Tablet TAKE 1 TABLET BY MOUTH EVERY DAY FOR 90 DAYS Eliquis 5 MG Tablet TAKE 1 TABLET BY MOUTH TWICE A DAY FOR 90 DAYS Metoprolol Tartrate 25 MG Tablet TAKE 1 TABLET BY MOUTH TWICE A DAY WITH FOOD FOR 90 DAYS Multi Vitamin Daily - Tablet 1 tablet Orally Once a day Calcium Carbonate 1250 (500 Ca) MG Tablet 1 tablet with food Orally Twice a day Flecainide Acetate 50 MG Tablet TAKE ONE TAB BY MOUTH TWICE DAILY FOR 30 DAYS Oral Hydrocortisone 1 % Cream 1 application Externally Once a day Amiodarone HCl 200 MG Tablet 1 tablet Orally Once a day Vitamin D-[address] 25 MCG (1000 UT) Tablet TAKE 1 TABLET BY MOUTH EVERY DAY Therapeutic-M - Tablet TAKE 1 TABLET BY MOUTH EVERY DAY AFTER BREAKFAST Taking Rosuvastatin Calcium 40 MG Tablet TAKE 1 TABLET BY MOUTH EVERY DAY FOR 90 DAYS Taking Eliquis 5 MG Tablet TAKE 1 TABLET BY MOUTH TWICE A DAY FOR 90 DAYS Taking Metoprolol Tartrate 25 MG Tablet TAKE 1 TABLET BY MOUTH TWICE A DAY WITH FOOD FOR 90 DAYS Taking Multi Vitamin Daily - Tablet 1 tablet Orally Once a day Taking Calcium Carbonate 1250 (500 Ca) MG Tablet 1 tablet with food Orally Twice a day Taking Flecainide Acetate 50 MG Tablet TAKE ONE TAB BY MOUTH TWICE DAILY FOR 30 DAYS Oral Taking Hydrocortisone 1 % Cream 1 application Externally Once a day Taking Amiodarone HCl 200 MG Tablet 1 tablet Orally Once a day Taking Vitamin D-[address] 25 MCG (1000 UT) Tablet TAKE 1 TABLET BY MOUTH EVERY DAY Taking Therapeutic-M - Tablet TAKE 1 TABLET BY MOUTH EVERY DAY AFTER BREAKFAST DiscontinuedPaxlovid (300/100) 20 x 150 MG & 10 x 100MG Tablet Therapy Pack 3 tablets Orally Twice a day Paxlovid (300/100) 20 x 150 MG & 10 x 100MG Tablet Therapy Pack 3 tablets Orally Twice a day Medication List reviewed and reconciled with the patientDiscontinued Paxlovid (300/100) 20 x 150 MG & 10 x 100MG Tablet Therapy Pack 3 tablets Orally Twice a day Discontinued Paxlovid (300/100) 20 x 150 MG & 10 x 100MG Tablet Therapy Pack 3 tablets Orally Twice a day Medication List reviewed and reconciled with the patient * Allergies: S elmer[Allergies Verified] Objective: * Vitals: H t: 65, Wt:147, BMI:24.46, BP:126/68, HR:54, Temp:96.8, Wt-k.68. * P ast Orders: Lab:Complete Blood Count Aut o Diff * Collection Date 05/11/2024 12/04/2023 08/05/2023 Collection Time 06:50 AM 09:56 AM 11:47 AM Order Date 05/11/2024 12/04/2023 08/05/2023 White Blood Count 5.9 (Ref Range: 4.8-10.8 X10*3/uL) 8.0 (Ref Range: 4.8-10.8 X10*3/uL) 6.9 (Ref Range: 4.8-10.8 X10*3/uL) Red Blood Count 4.17 L (Ref Range: 4.20-5.50 X10*6/uL) 4.46 (Ref Range: 4.20-5.50 X10*6/uL) 4.50 (Ref Range: 4.20-5.50 X10*6/uL) Hemoglobin 13.6 (Ref Range: 12.0-16.0 g/dl) 14.2 (Ref Range: 12.0-16.0 g/dl) 13.6 (Ref Range: 12.0-16.0 g/dl) Hematocrit 40.6 (Ref Range: 37.0-47.0 %) 42.9 (Ref Range: 37.0-47.0 %) 42.4 (Ref Range: 37.0-47.0 %) Mean Corpuscular Volume 97.4 (Ref Range: 80.0-98.0 fL) 96.2 (Ref Range: 80.0-98.0 fL) 94.2 (Ref Range: 80.0-98.0 fL) Mean Corpuscular Hemoglobin 32.6 (Ref Range: 27.0-33.0 pg) 31.8 (Ref Range: 27.0-33.0 pg) 30.2 (Ref Range: 27.0-33.0 pg) Mean Corpuscular HGB Conc 33.5 (Ref Range: 31.0-35.0 g/dl) 33.1 (Ref Range: 31.0-35.0 g/dl) 32.1 (Ref Range: 31.0-35.0 g/dl) Red Cell Distribution Width 13.1 (Ref Range: 11.0-16.0 %) 13.1 (Ref Range: 11.0-16.0 %) 13.9 (Ref Range: 11.0-16.0 %) Platelet Count 261 (Ref Range: 160-400 X10*3/uL) 208 (Ref Range: 160-400 X10*3/uL) 231 (Ref Range: 160-400 X10*3/uL) Mean Platelet Volume 9.8 (Ref Range: 9.4-12.3 fL) 10.6 (Ref Range: 9.4-12.3 fL) 10.9 (Ref Range: 9.4-12.3 fL) Neutrophils Percent Auto 53.8 (Ref Range: 45-73 %) 60.0 (Ref Range: 45-73 %) 54.8 (Ref Range: 45-73 %) Imm Gran Pct Auto 0.3 (Ref Range: 0.0-0.4 %) 0.2 (Ref Range: 0.0-0.4 %) 0.1 (Ref Range: 0.0-0.4 %) Lymphocytes Percent Auto 33.7 (Ref Range: 20-40 %) 30.5 (Ref Range: 20-40 %) 34.6 (Ref Range: 20-40 %) Monocytes Percent Auto 8.0 (Ref Range: 2-11 %) 7.1 (Ref Range: 2-11 %) 8.3 (Ref Range: 2-11 %) Eosinophils Percent Auto 2.7 (Ref Range: 0-4 %) 1.2 (Ref Range: 0-4 %) 1.0 (Ref Range: 0-4 %) Basophils Percent Auto 1.5 (Ref Range: 0-2 %) 1.0 (Ref Range: 0-2 %) 1.2 (Ref Range: 0-2 %) NRBC Pct Auto 0.0 (Ref Range: 0.0-0.2 /100WBC) 0.0 (Ref Range: 0.0-0.2 /100WBC) 0.0 (Ref Range: 0.0-0.2 /100WBC) Neutrophils Absolute Auto 3.2 (Ref Range: 2.0-8.3 x10*3/uL) 4.8 (Ref Range: 2.0-8.3 x10*3/uL) 3.8 (Ref Range: 2.0-8.3 x10*3/uL) Imm Gran Abs Auto 0.02 (Ref Range: 0.00-0.03 X10*3/uL) 0.02 (Ref Range: 0.00-0.03 X10*3/uL) 0.01 (Ref Range: 0.00-0.03 X10*3/uL) Lymphocytes Absolute Auto 2.0 (Ref Range: 1.2-4.9 X10*3/uL) 2.5 (Ref Range: 1.2-4.9 X10*3/uL) 2.4 (Ref Range: 1.2-4.9 X10*3/uL) Monocytes Absolute Auto 0.5 (Ref Range: 0.1-1.2 X10*3/uL) 0.6 (Ref Range: 0.1-1.2 X10*3/uL) 0.6 (Ref Range: 0.1-1.2 X10*3/uL) Eosinophils Absolute Auto 0.2 (Ref Range: 0.0-0.4 X10*3/uL) 0.1 (Ref Range: 0.0-0.4 X10*3/uL) 0.1 (Ref Range: 0.0-0.4 X10*3/uL) Basophils Absolute Auto 0.1 (Ref Range: 0.0-0.2 X10*3/uL) 0.1 (Ref Range: 0.0-0.2 X10*3/uL) 0.1 (Ref Range: 0.0-0.2 X10*3/uL) NRBC Abs Auto 0.000 (Ref Range: 0.0-0.012 X10*3/uL) 0.000 (Ref Range: 0.0-0.012 X10*3/uL) 0.000 (Ref Range: 0.0-0.012 X10*3/uL) * Lab:Vitamin D 25-OH Total * Collection Date 05/11/2024 07/31/2022 Collection Time 06:50 AM 06:44 AM Order Date 05/11/2024 07/31/2022 Vitamin D 25-OH Total 43.8 (Ref Range: >30 ng/mL) 53.4 (Ref Range: >30 ng/mL) * Lab:Lipid Panel * Collection Date 05/11/2024 12/04/2023 08/05/2023 Collection Time 06:50 AM 09:56 AM 11:47 AM Order Date 05/11/2024 12/04/2023 08/05/2023 Triglycerides 45 (Ref Range: <150 mg/dL) 70 (Ref Range: <150 mg/dL) 49 (Ref Range: <150 mg/dL) Cholesterol 140 (Ref Range: <200 mg/dL) 140 (Ref Range: <200 mg/dL) 148 (Ref Range: <200 mg/dL) LDL Cholesterol Calculated 74 (Ref Range: <100 mg/dL) 66 (Ref Range: <100 mg/dL) 74 (Ref Range: <100 mg/dL) HDL Cholesterol 57 (Ref Range: >40 mg/dL) 60 (Ref Range: >40 mg/dL) 65 (Ref Range: >40 mg/dL) * Lab:Comprehensive [place]. Pane l Fast * Collection Date 05/11/2024 12/04/2023 08/05/2023 Collection Time 06:50 AM 09:56 AM 11:47 AM Order Date 05/11/2024 12/04/2023 08/05/2023 Sodium 143 (Ref Range: 135-145 mmol/L) 142 (Ref Range: 135-145 mmol/L) 140 (Ref Range: 135-145 mmol/L) Bilirubin Total 0.4 (Ref Range: 0.0-1.0 mg/dL) 0.6 (Ref Range: 0.0-1.0 mg/dL) 0.5 (Ref Range: 0.0-1.0 mg/dL) Aspartate Amino Transferase 25 (Ref Range: 5-31 U/L) 23 (Ref Range: 5-31 U/L) 27 (Ref Range: 5-31 U/L) Alanine Aminotransferase 21 (Ref Range: 0-31 U/L) 17 (Ref Range: 0-31 U/L) 18 (Ref Range: 0-31 U/L) Total Protein 6.7 (Ref Range: 6.5-8.0 g/dL) 7.2 (Ref Range: 6.5-8.0 g/dL) 7.0 (Ref Range: 6.5-8.0 g/dL) Albumin Level 3.8 (Ref Range: 3.5-5.0 g/dL) 3.9 (Ref Range: 3.5-5.0 g/dL) 3.9 (Ref Range: 3.5-5.0 g/dL) Alkaline Phosphatase 86 (Ref Range: 39-117 U/L) 83 (Ref Range: 39-117 U/L) 82 (Ref Range: 39-117 U/L) Potassium 4.2 (Ref Range: 3.3-5.1 mmol/L) 5.1 (Ref Range: 3.3-5.1 mmol/L) 4.3 (Ref Range: 3.3-5.1 mmol/L) Chloride 110 H (Ref Range: 96-108 mmol/L) 108 (Ref Range: 96-108 mmol/L) 110 H (Ref Range: 96-108 mmol/L) Carbon Dioxide 27 (Ref Range: 22-29 mmol/L) 26 (Ref Range: 22-29 mmol/L) 24 (Ref Range: 22-29 mmol/L) Anion Gap 10 L (Ref Range: 12-20) 13 (Ref Range: 12-20) 10 L (Ref Range: 12-20) Blood Urea Nitrogen 15 (Ref Range: 9-16 mg/dL) 14 (Ref Range: 9-16 mg/dL) 17 H (Ref Range: 9-16 mg/dL) Creatinine 0.90 (Ref Range: 0.5-1.4 mg/dL) 0.73 (Ref Range: 0.5-1.4 mg/dL) 0.78 (Ref Range: 0.5-1.4 mg/dL) Estimated Glomerular Filt Rate > 60 > 60 > 60 Glucose Fasting 94 (Ref Range: 60-99 mg/dL) 82 (Ref Range: 60-99 mg/dL) 76 (Ref Range: 60-99 mg/dL) Calcium 9.0 (Ref Range: 8.4-10.2 mg/dL) 9.8 (Ref Range: 8.4-10.2 mg/dL) 9.3 (Ref Range: 8.4-10.2 mg/dL) * Lab:URINE DIP STICK * Collection Date 05/16/2024 05/12/2023 05/08/2022 Order Date 05/16/2024 05/12/2023 05/08/2022 SG 1.010 (Ref Range: 1.005 - 1.025) 1.015 (Ref Range: 1.005 - 1.025) 1.010 pH 6.5 (Ref Range: 5.0 - 9.0) 6.0 (Ref Range: 5.0 - 9.0) 7 JOSS Negative (Ref Range: Negative -) 500 (Ref Range: Negative -) 125 NIT Negative (Ref Range: Negative -) Negative (Ref Range: Negative -) neg PRO Negative (Ref Range: Negative - Trace) 15 (Ref Range: Negative - Trace) trace GLU Negative (Ref Range: Negative -) Negative (Ref Range: Negative -) normal KET Negative (Ref Range: Negative -) Negative (Ref Range: Negative -) neg UBG 0.2 (Ref Range: 0.1 - 1.8) 0.2 (Ref Range: 0.1 - 1.8) normal SEBASTIAN Negative (Ref Range: 0.2 - 1.3) Negative (Ref Range: 0.2 - 1.3) neg BLD Negative (Ref Range: Negative -) Negative (Ref Range: Negative -) trace Menstrating NR No no * Examination: G eneral Examination: GENERAL APPEARANCE: p leasant, well nourished, well developed, in no acute distress, calm and relaxed, woman. HEAD: a traumatic, normocephalic. EYES: e isael, perrla, anicteric, conjugate. EARS: n ormal. NOSE: s eptum intact. ORAL CAVITY: n ormal, unremarkable. NECK/THYROID: n o jugular venous distention, no carotid bruit, thyroid normal. LYMPH NODES: n o enlarged lymph nodes,spleen normal. SKIN: n o suspicious lesions, anicteric. HEART: n o clicks, gallops, murmurs, or rubs, regular rhythm, S1, S2 normal, no s3, or vascular bruits. LUNGS: c lear to auscultation . BREASTS: no masses palpable bilaterally. ABDOMEN: b owel sounds normal, no ascites, no organomegaly, no mass. RECTAL EXAM: n ot examined. MUSCULOSKELETAL: e xtremities unremarkable, no clubbing, cyanosis or edema. PERIPHERAL PULSES: n ormal. NEUROLOGIC: a lert and oriented, cranial nerves 2-12 grossly intact, deep tendon reflexes 2+ symmetrical, motor strength normal upper and lower extremities, sensory exam intact. PSYCH: a lert, oriented, mood depressed. ? Assessment: * Assessment: 1. P aroxysmal atrial fibrillation - I48.0 (Primary) N otes :She is in normal sinus rhythm today. She had a cardiac ablation procedure last week to control her Heart rate. 2 . T halamic infarct, acute - I63.81 N otes :Since this event she has had no further neurological complaints. She remains anticoagulated. 3 . D epressive disorder, not elsewhere classified - F32.9 N otes :Her depression is mild to moderate and she is discouraged at how long it is taking her to recover. No change in her regimen was necessary today. She is going to be observed frequently. 4 . O nychomycosis - B35.1 N otes :Her toenails today recovered with nail botswanan but she reports that the problem is mild and she does not require treatment at this time. 5 . 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 She has not noticed any change since the viral infection. Vision is reported to be normal 6 . D isplacement of cervical intervertebral disc without myelopathy - M50.20? Notes :She has only occasional pain in her neck with range of motion. I recommended avoiding heavy lifting and straining. 7 . O ther and unspecified hyperlipidemia - E78.5 N otes :The most recent lipid profile showed good control of her lipids. Her weight is in the normal range. We discussed diet and nutrition. No change was made in her regimen. 8 . L umbar radiculopathy - M54.16 N otes :I recommended no heavy lifting combined with rest meloxicam and feet. The back pain is minimal and only intermittent at this point. 9 . O steoporosis - M81.0 N otes :She is asymptomatic. A bone density test has been ordered. She will continue on current therapy now. 1 0. A nticoagulated - Z79.01 N otes :She is taking 5 mg of Eliquis twice a day and has had no bleeding. She is compliant with this therapy. Plan: * Treatment: 2. O thers Continue Therapeutic-M Tablet, -, TAKE 1 TABLET BY MOUTH EVERY DAY AFTER BREAKFAST; C ontinue Rosuvastatin Calcium Tablet, 40 MG, TAKE 1 TABLET BY MOUTH EVERY DAY FOR 90 DAYS; C ontinue Eliquis Tablet, 5 MG, TAKE 1 TABLET BY MOUTH TWICE A DAY FOR 90 DAYS; C ontinue Metoprolol Tartrate Tablet, 25 MG, TAKE 1 TABLET BY MOUTH TWICE A DAY WITH FOOD FOR 90 DAYS; C ontinue Multi Vitamin Daily Tablet, -, 1 tablet, Orally, Once a day. * Procedure Codes: * Follow Up: 4 Weeks, In about four weeks (Reason: Telehealth, Follow up on patient's condition post-ablation surgery) * Images: * Sign off status: Completed true * Provider: Zuleika Damon MD Date: Generated for Gagandeep sawyer/Robson/Mirandaitting on: 0 05/15/2025 12:17 PM EDT History and Physical Notes * HPI (History of Present Illness) Category Sub-Category Detail Notes COVID-19 Screening Questions Have you had any new onset fever, chills, cough, congestion, sore throat, shortness of breath, muscle aches?: No Have you been exposed to the virus withi n the last 10 days?: No Have you travelled internationally in e last 10 days?: No Have you been exposed to COVID-19 in the past?: Yes Examination Category Sub-Category Detail Notes General Examination GENERAL APPEARANCE: pleasant , well nourished, well developed, in no acute distress, calm and relaxed, woman HEAD: atraumatic, normocep halic EYES: eomi, perrla, anicte lily, conjugate EARS: normal NOSE: septum intact NECK/THYROID: no jugular venous di stention, no carotid bruit, thyroid normal HEART: no clicks, gallops, murmurs, or rubs, regular rhythm, S1, S2 normal, no s3, or vascular bruits LUNGS: clear to auscultatio n ABDOMEN: bowel sounds normal, no ascites, no organomegaly, no mass NEUROLOGIC: alert and oriented, cranial nerves 2-12 grossly intact, deep tendon reflexes 2+ symmetrical, motor strength normal upper and lower extremities, sensory exam intact SKIN: no suspicious lesion s, anicteric PERIPHERAL PULSES: normal BREASTS: no masses palpable b ilaterally MUSCULOSKELETAL: extremities unremark able, no clubbing, cyanosis or edema LYMPH NODES: no enlarged lymph no alexandru,spleen normal RECTAL EXAM: not examined PSYCH: alert, oriented, moo d depressed ORAL CAVITY: normal, unremarkable
--- OUTSIDE RECORDS SUMMARY | 2024-07-19 09:45 | XMS_ITS ---
Author Organization Otilio Damon III, MD Address [address] [place] [address] Care Team Providers Care Space Operations Officer Name Role Phone Otilio Damon Primary Care Provider [phone] Allergies Allergen (clinical drug ingredient) Drug/Non Drug Allergy documented on EMR Reaction Allergy Type Onset Date Status Seasonale Unknown Drug Allergy Active REASON FOR VISIT Acute bronchitis, card sched ett and echo tariq stiop amkodarone start 1/2 mulltaq danuta ham and brody, 1 week refractory cough, Chest Medications Medication SIG (Take, Route, Frequency, Duration) Notes Start Date End Date Status guaiFENesin-Codeine 100-10 MG/5ML 10 mL as needed Orally every 4 hrs for 7 days 07/19/2024 08/09/2024 Active Guaiatussin AC 100-10 MG/5ML 10 mL as needed Orally every 4 hrs for 10 days 07/19/2024 08/08/2024 Active Azithromycin 250 MG as directed Orally 2 Tablets on the first day, one tablet the rest of the days for 5 days 07/19/2024 Active Hydrocortisone 1 % 1 application Externally Once a day 05/16/2024 Active Amiodarone HCl 200 MG 1 tablet Orally On ce a day 05/16/2024 Active Eliquis 5 MG TAKE 1 TABLET BY JULI TH TWICE A DAY FOR 90 DAYS Active Multi Vitamin Daily - 1 tablet Orally On ce a day Active Metoprolol Tartrate 25 MG TAKE 1 TABLET BY MOUTH TWICE A DAY WITH FOOD FOR 90 DAYS Active Flecainide Acetate 50 MG TAKE ONE TAB BY MOUTH TWICE DAILY FOR 30 DAYS Oral Active Calcium Carbonate 1250 (500 Ca) MG 1 tablet with food Orally Twice a day Active Rosuvastatin Calcium 40 MG TAKE 1 TABLET BY MOUTH EVERY DAY FOR 90 DAYS Active Vitamin D-[address] 25 MCG (1000 UT) TAKE 1 TABLET BY MOUTH EVERY DAY Active Therapeutic-M - TAKE 1 TABLET BY JULI TH EVERY DAY AFTER BREAKFAST Active Social History Tobacco Use: Social History Observation Description Date Details (start date - stop date) Never Smoker NA - NA Sex Assigned At : Social History Observation Description Sex Assigned At Female Tobacco Use/Smoking Question Answer Notes Patient is a nonsmoker Additional Findings: Tobacco Non-User Aggressive non-smoker Vital Signs Height 65 in 07/19/2024 Weight 147 lbs 07/19/2024 BMI 24.46 kg/m2 07/19/2024 Encounters Encounter Location Date Provider Diagnosis Otilio Damon III, MD [address] [place] [address] [place] [address] 07/19/2024 Otilio Damon Acute bronchitis, unspecified organism J20.9 ; Refractory chronic cough R05.3 ; Depressive disorder, not elsewhere classified F32.9 and Lumbar radiculopathy M54.16 Assessments Encounter Date Diagnosis (ICD Code) Assessment Notes Treatment Notes Treatment Clinical Notes 07/19/2024 Acute bronchitis, unspecified organism (ICD-10 - J20.9) She was given a prescription for an antibiotic. We discussed symptomatic treatment of the cough. She will rest and consume fluids. 07/19/2024 Refractory chronic cough (ICD-10 - R05.3) She has had no relief with dextromethorphan preparations. I have given her a prescription for guaifenesinAC. 07/19/2024 Depressive disorder, not elsewhere classified (ICD-10 - F32.9) Her depression is mild to moderate and she is discouraged at how long it is taking her to recover. No change in her regimen was necessary today. She is going to be observed frequently. 07/19/2024 Lumbar radiculopathy (ICD-10 - M54.16) I recommended no heavy lifting combined with rest meloxicam and feet. The back pain is minimal and only intermittent at this point. Plan Of Treatment Medication Medication Name Sig Start Date Stop Date Notes guaiFENesin-Codeine 100-10 MG/5ML 10 mL as needed Orally every 4 hrs for 7 days 07/19/2024 08/09/2024 Guaiatussin AC 100-10 MG/5ML 10 mL as ne eded Orally every 4 hrs for 10 days 07/19/2024 08/08/2024 Azithromycin 250 MG as directed Orally 2 Tablets on the first day, one tablet the rest of the days for 5 days 07/19/2024 Hydrocortisone 1 % 1 application Emergency Medicine Nurse Practitioner ally Once a day 05/16/2024 Amiodarone HCl 200 MG 1 tablet Orally Once a day Eliquis 5 MG TAKE 1 TABLET BY JULI TH TWICE A DAY FOR 90 DAYS Multi Vitamin Daily - 1 tablet Orally Once a day Metoprolol Tartrate 25 MG TAKE 1 TABLET BY MOUTH TWICE A DAY WITH FOOD FOR 90 DAYS Flecainide Acetate 50 MG TAKE ONE TAB BY MOUTH TWICE DAILY FOR 30 DAYS Oral Calcium Carbonate 1250 (500 Ca) MG 1 tablet with food Orally Twice a day Rosuvastatin Calcium 40 MG TAKE 1 TABLET BY MOUTH EVERY DAY FOR 90 DAYS Vitamin D-[address] 25 MCG (1000 UT) TAKE 1 TABLET BY MOUTH EVERY DAY Therapeutic-M - TAKE 1 TABLET BY JULI TH EVERY DAY AFTER BREAKFAST Next Appt Details Follow Up: Thursday, Reason: T o report on progress after taking azithromycin Provider Name:Otilio Damon, 05/19/2025 10:00:00 AM, [address] [place] [address] [place], [address], Progress Notes * Katheryn CERNA LDOB:[birth year] (78 yo F)Acc No.[id number]:07/19/2024 Patient: Katheryn JACKSON Provider: Zuleika Damon MD :1945 A ge:78 Y S ex:Female Date:07/19/2024 Address:[address] [id number] Subjective: * Chief Complaints: * A cute bronchitisCard sched ett and echo tariq stiop amkodarone start /2 mulltaq danuta ham and frank1 week refractory coughChest * HPI: * : Telehealth L ocation of provider rendering services: { ...} [address] [facility] [address] L ocation of patient: vicky chrisess listed in demographics for today's visit P atient identification confirmed using: GAMALIEL Tamez ame T elehealth method: T elephone only. Patient not visible to care provider. C onsent: P atient verbally consented to treatment, Patient verbally consented to billing insurance company, Patient informed of any privacy concerns related to method of visit T otal time spent with patient (mins) 1 5 The patient, a 78-year-old female, presented with a persistent cough that she has been experiencing for some time. 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 The patient could not recall the name of the antibiotic but mentioned that it was taken around the clock for seven days. The patient also mentioned that she has tried Mucinex and other pzxa-umq-vaqtaha medications, but they have not been very effective. The patient also reported having an echocardiogram and a stress test scheduled by her hazardous material specialist. She mentioned that she was advised to stop taking amiodarone and start taking one half tablet ofMultaq twice a day. The patient also mentioned that she had heart surgery in the past and was told that her heart was very scarred. * ROS: G eneral/Constitutional: pain o nly normal aches and pains. C hills d enies.?Fatigue a dmits. F ever d enies. E NT: Decreased hearing m ild. R espiratory: Cough n on-productive. C ardiovascular: Chest pain with exertion d enies. D yspnea on exertion?denies. S hortness of breath d enies. G astrointestinal: Constipation o ccasional. D ecreased appetite t hat is not associated with weight loss. D iarrhea d enies. H eartburn d [...] * Surgical History: c olonoscopy hyperplastic polyp 2005Cardiac ablasion ardiac ablation procedure [facility] surgery Heart surgery * Hospitalization/Major Diagno stic Procedure: C ovid-19 10/2019 * Family History: F ather: 40 yrs. M other: 79 yrs, cad. 3 brother(s) , 1 sister(s) . . Her mother had breast cancer at 65. Her brother, Stone, has hemochromotosis trait or disease. Youngest brother Blair has ferriltin of 600 and his son is 4000. She is not aware of any family history of mental illness or addiction or substance abuse. Father at 40. * Social History: T obacco Use: T obacco Use/Smoking P atient is a n onsmoker A dditional Findings: Tobacco Non-User A ggressive non-smoker S he has been to [place] for 42 years. She has 2 children who are well. 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 She was born in [place]. * Medications: T akingTherapeutic-M - Tablet TAKE 1 TABLET BY MOUTH EVERY DAY AFTER BREAKFAST Vitamin D-[address] 25 MCG (1000 UT) Tablet TAKE 1 TABLET BY MOUTH EVERY DAY Rosuvastatin Calcium 40 MG Tablet TAKE 1 [...] MOUTH TWICE DAILY FOR 30 DAYS Oral Amiodarone HCl 200 MG Tablet 1 tablet Orally Once a day Hydrocortisone 1 % Cream 1 application Externally Once a day Medication List reviewed and reconciled with the patientTaking Therapeutic-M - Tablet TAKE 1 TABLET BY MOUTH EVERY DAY AFTER BREAKFAST Taking Vitamin D-[address] 25 MCG (1000 UT) Tablet TAKE 1 TABLET BY MOUTH EVERY DAY Taking Rosuvastatin Calcium 40 MG Tablet TAKE [...] TWICE DAILY FOR 30 DAYS Oral Taking Amiodarone HCl 200 MG Tablet 1 tablet Orally Once a day Taking Hydrocortisone 1 % Cream 1 application Externally Once a day Medication List reviewed and reconciled with the patient * Allergies: Jamarcus payne[Allergies Verified] Objective: * Vitals: H t: 65, Wt:147, BMI:24.46, Wt-k.68. Assessment: * Assessment: 1. A cute bronchitis, unspecified organism - J20.9 (Primary) N otes :She was given a prescription for an antibiotic. We discussed symptomatic treatment of the cough. She will rest and consume fluids. 2 . R efractory chronic cough - R05.3 N otes :She has had no relief with dextromethorphan preparations. I have given her a prescription for guaifenesinAC. 3 . D epressive disorder, not elsewhere classified - F32.9 N otes :Her depression is mild to moderate and she is discouraged at how long it is taking her to recover. No change in her regimen was necessary today. She is going to be observed frequently. 4 . L umbar radiculopathy - M54.16 N otes :I recommended no heavy lifting combined with rest meloxicam and feet. The back pain is minimal and only intermittent at this point. Plan: * Treatment: * Procedure Codes: * Follow Up: F makedaay (Reason: To report on progress after taking azithromycin) * Images: * Sign off status: Completed true * Provider: Zuleika Damon MD Date: 1 09/18/2023 Generated for Gagandeep sawyer/Robson/Elizabethsmitting on: 0 05/15/2025 12:16 PM EDT History and Physical Notes * HPI (History of Present Illness) Category Sub-Category Detail Notes [facility] {...} [address] [facility] [address] [place] [address] Location of patient:: address listed in demographics for today's visit Patient identification confirmed using:: Name, Telehealth method:: Telephone only. Alison ent not visible to care provider. Consent:: Patient verbally c onsented to treatment, Patient verbally consented to billing insurance company, Patient informed of any privacy concerns related to method of visit Total time spent with patient (mins): 15
--- OUTSIDE RECORDS SUMMARY | 2024-07-20 13:15 | XMS_ITS ---
Author Organization Otilio Damon III, MD Address [address] [address] Care Team Providers Care Structural Iron Worker Name Role Phone Otilio Damon Primary Care Provider REASON FOR VISIT Telehealth Social History Sex Assigned At : Social History Observation Description Sex Assigned At Female Encounters Encounter Location Date Provider Diagnosis Otilio Damon III, MD [address] [place] [address] [place] [address] 07/20/2024 Otilio Damon Plan Of Treatment Next Appt Details Provider Name:Otilio Damon, 05/19/2025 10:00:00 AM, [address] [place] [address] [place], [address], Progress Notes * Katheryn CERNA LDOB:[birth year] (79 yo F)Acc No.[id number]:07/20/2024 Patient: Katheryn JACKSON Provider: Zuleika Damon MD :1945 A ge:78 Y S ex:Female Date:07/20/2024 Address: [id number] Subjective: * Chief Complaints: * 1 . Telehealth. * Medical History: Objective: * Vitals: Assessment: Plan: * Treatment: * Images: * The named appointment provid er may or may not be the originator of this progress note, and it is not deemed complete until electronically signed by the appointment provider. Sign off status: Pending * Provider: Zuleika Damon MD Date: 09/19/2023 Generated for Gagandeep sawyer/Robson/Mirandaitting on: 0 05/15/2025 12:16 PM EDT
--- OUTSIDE RECORDS SUMMARY | 2024-09-01 03:18 | XMS_ITS ---
Author Organization Otilio Damon III, MD Address [address] [place] [address] [place] [address] Care Team Providers Care Retirement Specialist Name Role Phone Otilio Damon Primary Care Provider REASON FOR VISIT Not well Medications Medication SIG (Take, Route, Frequency, Duration) Notes Start Date End Date Status Zithromax Z-Corey 250 MG 2 tablets on the first day, then 1 tablet daily for 4 days Orally Once a day for 5 days 09/01/2024 09/06/2024 Active Social History Sex Assigned At : Social History Observation Description Sex Assigned At Female Encounters Encounter Location Date Provider Diagnosis Otilio Damon III, MD [address] [place] [address] [place] [address] 09/01/2024 Otilio Damon Acute cough R05.1 an d Chest congestion R09.89 Assessments Encounter Date Diagnosis (ICD Code) Assessment Notes Treatment Notes Treatment Clinical Notes 09/01/2024 Acute cough (ICD-10 - R05.1) 09/01/2024 Chest congestion (ICD-10 - R09.89) Plan Of Treatment Medication Medication Name Sig Start Date Stop Date Notes Zithromax Z-Corey 250 MG 2 tablets on the first day, then 1 tablet daily for 4 days Orally Once a day for 5 days 09/01/2024 09/06/2024 Pending Test Test Name Order Date XR CHEST 2 VIEW PA & LAT 09/01/2024 Next Appt Details Provider Name:Otilio Damon, 05/19/2025 10:00:00 AM, [address] [place] [address] , [facility] [place], [place], [address], Progress Notes * Katheryn CERNA LDOB:[birth year] (79 yo F)Acc No.[id number]:09/01/2024 Patient: Katheryn JACKSON :1945 A ge:79 Y S ex:Female Address:[address] [place] [address] * Refills Start Zithromax Z-Corey Tablet, 250 MG, Orally, 6, 2 tablets on the first day, then 1 tablet daily for 4 days, Once a day, 5 days, Refills=0 Subjective: * Chief Complaints: * N ot well * Medical History: * Surgical History: * Hospitalization/Major Diagno stic Procedure: * Medications: Objective: * Vitals: * Physical Examination: Assessment: * Assessment: 1. A cute cough - R05.1 2 . C hest congestion - R09.89 Plan: * Treatment: 2. C hest congestion I maging: XR CHEST 2 VIEW PA & LAT 3. O thers Start Zithromax Z-Corey Tablet, 250 MG, 2 tablets on the first day, then 1 tablet daily for 4 days, Orally, Once a day, 5 days, 6, Refills 0. * Procedure Codes: * true * Date: Generated for Gagandeep sawyer/Robson/eTransmitting on: 0 05/15/2025 12:16 PM EDT
--- OUTSIDE RECORDS SUMMARY | 2024-12-05 06:14 | XMS_ITS ---
Author Organization Otilio Damon III, MD Address [address] [place] [address] [place] [address] Care Team Providers Care Db2 Dba Name Role Phone Otilio Damon Primary Care Provider [phone] Medications Medication SIG (Take, Route, Frequency, Duration) Notes Start Date End Date Status Doxycycline Hyclate 100 MG 1 capsule Ora lly twice a day for 10 days 12/05/2024 12/15/2024 Active Social History Sex Assigned At : Social History Observation Description Sex Assigned At Female Encounters Encounter Location Date Provider Diagnosis Otilio Damon III, MD [address] [place] [address] [place] [address] 12/05/2024 Otilio Damon Plan Of Treatment Medication Medication Name Sig Start Date Stop Date Notes Doxycycline Hyclate 100 MG 1 capsule Ora lly twice a day for 10 days 12/05/2024 12/15/2024 Next Appt Details Provider Name:Otilio Damon, 05/19/2025 10:00:00 AM, [address] [place] [address] [address], [place], [address], Progress Notes * Katheryn CERNA LDOB:[birth year] (79 yo F)Acc No.[id number]:12/05/2024 Patient: Katehryn JACKSON :1945 A ge:79 Y S ex:Female Address:[address] [place] [address] [place] [address] * Refills Start Doxycycline Hyclate Capsule, 100 MG, Orally, 20 Capsule, 1 capsule, twice a day, 10 days, Refills=0 * true * Date: Generated for Gagandeep sawyer/Robson/Mirandaitting on: 0 05/15/2025 12:17 PM EDT
--- OUTSIDE RECORDS SUMMARY | 2025-05-12 12:50 | XMS_ITS | Encounter Summary ---
Author Organization [facility] Address [address] [place] [address] Phone Care Team Providers Care Move Coordinator Name Role Phone Otilio Damon MD Primary Care Provider [phone] Reason for Visit * Reason Comments Wound Check Right leg wound, see n here on 04/26/25 for this. Pt states it got better now it's getting worse again with spreading redness. Would like to discuss an RX she got yesterday for Cephalexin for her toe. Encounter Details Date Type Department Care Team (Late st Contact Info) Description 05/12/2025 12:50 PM EDT Office Visit [facility] [address] [address] Jayna Montez, TURRET LATHE TENDER [address] [place] [address] [email or web address] Cellulitis of right lower extremity (Primary Dx); Wound infection Social History Tobacco Use Types Packs/Day Years Used Date Smoking Tobacco: Never Smokeless Tobacco: Never Tobacco Cessation:Counseling Given: Not Answered Alcohol Use Standard Drinks/Week Comments Never 0 (1 standard drink = 0.6 oz pur e alcohol) Education Answer Date Recorded Are you interested in more education? Not on kate e 12/27/2022 Are you concerned about learning? Not on file 12/27/2022 No 12/27/2022 No 12/27/2022 Digital Access Answer Date Recorded No 01/27/2023 No 01/27/2023 Reliable internet access at home? Not on file 01/27/2023 Device with a working camera? Not on file Comments No Sex and Gender Information Value Date Recorded Sex Assigned at Female 07/18/2024 4:00 PM EST Legal Sex Female 4:15 PM EDT Gender Identity Female 07/18/2024 4:00 PM EST Sexual Orientation Not on file documented as of this encounter Last Filed Vital Signs Vital Sign Reading Time Taken Comments Blood Pressure 120/69 05/12/2025 1:04 PM EDT Pulse 90 05/12/2025 1:04 PM EDT Temperature 36.3 C (97.4 F) 05/12/2025 1:04 PM EDT Respiratory Rate 16 05/12/2025 1:04 PM EDT Oxygen Saturation 100% 05/12/2025 1:04 PM EDT Inhaled Oxygen Concentration - - Weight 63.5 kg (140 lb) 05/12/2025 1:04 PM EDT Height - - Body Mass Index 23.3 04/05/2025 7:52 AM EDT documented in this encounter Patient Instructions * Patient Instructions* Jayna Montez CNP - 05/12/2025 12:50 PM EDT Clean wound with soap and water daily and apply nonstick dressing Take keflex as prescribed (directions on bottle) Follow up if not improving in 2 days, sooner if worsening Go to the ED for fever, flu like symptoms, or streaking erythema documented in this encounter Progress Notes * Jayna Montez CNP - 05/12/2025 12:50 PM EDT I obtained verbal consent from the patient or their proxy to record this visit for purposes of producing a draft of the encounter documentation. History of Present Illness The patient is a 79-year-old female who presents with leg erythema. Leg Erythema - Last seen 2 weeks and 2 days ago for skin tear of anterior right lower leg - Prescribed keflex from interface engineer for a different issue, taken two doses since yesterday ROS: Per HPI Vitals: 05/12/25 1304 BP: 120/69 Pulse: 90 Resp: 16 Temp: 36.3 ??C (97.4 ??F) SpO2: 100% Physical Exam General Appearance: General: Pt not in acute distress. Appearance: Normal appearance. Well-developed. Not ill-appearing. Vital signs: Within normal limits HEENT: Head: Normocephalic and atraumatic. Right Ear: External ear normal. Left Ear: External ear normal. Nose: Nose normal. Respiratory: Normal effort Skin: Healing skin tear on mid anterior right lower leg with erythema extending to ankle. Area hot to touch, no induration. Neurological: General: No focal deficit present. Mental Status: Alert and oriented to person, place, and time. Psychiatric: Mood normal. Behavior normal. Thought content normal. Judgment normal. Assessment & Plan 1.Wound infection with cellulitis - Continue prescribed keflex TID x 10 days - Cleaned and dressed wound - Wound care and follow up per AVS documented in this encounter Plan of Treatment Upcoming Encounters Date Type Department Care Team (Late st Contact Info) Description 07/06/2025 9:00 AM EST Office Visit [facility] [address] [place] [address] 3rd Floor, [address] [place] [address] Yaneth Silveira DNP [facility], [address] [address] [email or web address] documented as of this encounter Visit Diagnoses Diagnosis Cellulitis of right lower extremity- Primary Wound infection Posttraumatic wound infection not elsewhere classified documented in this encounter Care Teams Move Coordinator Relationship Specialty Start Date End Date Otilio Damon MD [address] [place] [address] PCP - General Medical Oncology 12/06/20 documented as of this encounter Additional Source Comments The information contained in this document represents components of the legal health record. It is not the complete legal health record.[facility]
[2025-05-15 10:04] LABS: MANUAL DIFF FLAG NO
[2025-05-15 10:48] LABS: Hematocrit 39.6 % (37.0-47.0); Hemoglobin 13.4 g/dl (12.0-16.0); Imm Gran Abs Auto 0.03 X10*3/uL (0.00-0.03); Imm Gran Pct Auto 0.4 % (0.0-0.4); Lymphocytes Absolute Auto 2.3 X10*3/uL (1.2-4.9); Mean Corpuscular HGB Conc 33.8 g/dl (31.0-35.0); Mean Corpuscular Hemoglobin 32.4 pg (27.0-33.0); Mean Corpuscular Volume 95.7 fL (80.0-98.0); NRBC Abs Auto 0.000 X10*3/uL (0.0-0.012); NRBC Pct Auto 0.0 /100WBC (0.0-0.2); Platelet Count 265 X10*3/uL (160-400); Red Blood Count 4.14 X10*6/uL (4.20-5.50); White Blood Count 7.2 X10*3/uL (4.8-10.8)
[2025-05-15 11:28] LABS: Alanine Aminotransferase 26 U/L (0-31); Albumin Level 4.0 g/dL (3.5-5.0); Alkaline Phosphatase 92 U/L (39-117); Anion Gap 10 (12-20); Aspartate Amino Transferase 35 U/L (5-31); Blood Urea Nitrogen 17 mg/dL (9-16); Calcium 9.0 mg/dL (8.4-10.2); Carbon Dioxide 25 mmol/L (22-29); Chloride 108 mmol/L (96-108); Cholesterol 134 mg/dL (<200); Estimated Glomerular Filt Rate > 60; HDL Cholesterol 62 mg/dL (>40); Potassium 4.3 mmol/L (3.3-5.1); Sodium 139 mmol/L (135-145); Total Protein 7.0 g/dL (6.5-8.0); Triglycerides 48 mg/dL (<150)
--- OUTSIDE RECORDS SUMMARY | 2025-05-15 12:16 | XMS_ITS | Clinical Summary ---
Author Organization [facility] Address [address] [facility] [address] [place] [address] Phone Care Team Providers Care Component Assembler Supervisor Name Role Phone Otilio Damon MD Primary Care Provider +1- [phone] Allergies No known active allergies Medications ELIQUIS 5 mg tablet Take 1 tablet by mouth 2 (two) times a day. 4 Active cholecalciferol (VITAMIN D3) 25 MCG (1,000 unit) tablet Take 1 tablet by mouth every morning. 4 Active THERAPEUTIC-M 9 mg iron-400 mcg Tab TAKE 1 TABLET BY MOUTH EVERY DAY AFTER BREAKFAST 4 Active rosuvastatin (CRESTOR) 40 MG tablet Take 1 tablet by mouth every morning. 4 Active metoprolol tartrate (LOPRESSOR) 25 MG tablet Take 25 mg by mouth 2 (two) times a day. 4 Active dronedarone (MULTAQ) 400 mg tabletIndications :Persistent atrial fibrillation Take 0.5 tablets (200 mg total) by mouth 2 (two) times a day with meals. 30 tablet 5 5 Active diphenhydrAMINE-a cetaminophen (TYLENOL PM EXTRA STRENGTH) 25-500 mg Tab Active cagfxfh-jtky-ajbp bl-G7-khhi-K 500 mg-70 mg- 27 mg-400 unit Cap Acti ve magnesium oxide (MAG-OX) 400 mg (241.3 mg elemental) tablet Take 1 tablet (400 mg total) by mouth daily. 90 tablet 5 Active cycloSPORINE (RESTASIS MULTIDOSE) 0.05 % Drop INSTILL 1 DROP IN EACH EYE TWICE A DAY Ophthalmic; Duration: 90 Active atenolol (TENORMIN) 25 MG tablet TAKE 1 TABLET BY MOUTH TWICE A DAY Oral; Duration: 90 Active cephalexin (KEFLEX) 500 MG capsule Active Active Problems Problem Noted Date Diagnosed Date Hyperlipidemia 04/26/2025 Cervical stenosis of spine 04/26/2025 Shortness of breath 07/18/2024 Assessment & Plan (07/18/2024 8:40 AM EST): Will request for stress test and echocardiogram to evaluate further Persistent atrial fibrillation 06/08/2024 Assessment & Plan (07/18/2024 8:40 AM EST): Denies any symptomatic episodes of atrial fibrillation. In view of shortness of breath we will request for stress test and echocardiogram to evaluate further. In view of long-term side effects of amiodarone we will stop amiodarone. Will try to see if patient can tolerate Multaq. Counseled the patient to take half a pill with food. Assessment & Plan (06/08/2024 2:39 PM EDT): Will cut down on the dose of amiodarone to 100 mg once a day. Continue blood thinners for now. Continue AV rashid blocking agents Chronic anticoagulation 06/08/2024 Assessment & Plan (07/18/2024 8:40 AM EST): Counseled about blood thinners Assessment & Plan (06/08/2024 2:39 PM EDT): Compliant with medications. Encouraged to continue behavior. Encounters Date Type Department Care Team Description 05/12/2025 12:50 PM EDT Office Visit [facility] [address] [address] Jayna Montez CNP Cellulitis of right lower extremity (Primary Dx); Wound infection 05/04/2025 8:41 AM EDT - 05/04/2025 11:59 PM EDT Hospital Encounter Event Monitor [address] [place] [address] Jorge Anaya MD Discharge Disposition: Home or Self Care 04/26/2025 3:50 PM EDT Office Visit [facility] at [address] [address] Lakeisha Mckeon CNP Noninfected skin tear of right leg, initial encounter (Primary Dx) 04/05/2025 8:00 AM EDT Office Visit [facility] [address], [address] [place] [address] Jorge Anaya MD Atrial fibrillation, unspecified type (Primary Dx) 04/05/2025 Procedure Pass Event Monitor [address] [place] [address] from Last 3 Months Social History Tobacco Use Types Packs/Day Years [...] PM EST Sexual Orientation Not on file Last Filed Vital Signs Vital Sign Reading Time Taken Comments Blood Pressure 120/69 05/12/2025 1:04 PM EDT Pulse 90 05/12/2025 1:04 PM EDT Temperature 36.3 C (97.4 F) 05/12/2025 1:04 PM EDT Respiratory Rate 16 05/12/2025 1:04 PM EDT Oxygen Saturation 100% 05/12/2025 1:04 PM EDT Inhaled Oxygen Concentration - - Weight 63.5 kg (140 lb) 05/12/2025 1:04 PM EDT Height 165.1 cm (5' 5 ) 04/05/2025 7:52 AM EDT Body Mass Index 23.3 04/05/2025 7:52 AM EDT Plan of Treatment Upcoming Encounters Date Type Department Care Team (Late st Contact Info) Description 07/06/2025 9:00 AM EST Office Visit [facility] [address] [facility] 3rd Floor, [address] [place], [place] [id number] Yaneth Silveira DNP [address] [facility], [address] [place] [address] [email or web address] Health Maintenance Due Date Last Done Comments Adult Td,Tdap Booster 1947 CREATININE LEVEL 1947 LIPID PANEL 1947 DEPRESSION SCREENING 1959 HEPATITIS C SCREENING 1965 OSTEOPOROSIS SCREENING INITIAL (ONE-TIME) 2012 PNEUMOCOCCAL VACCINES (50+ years) (2 of 2 - PPSV23) 06/28/2021 06/28/2020 RSV VACCINE (1 - 1-dose 75+ series) 2022 INFLUENZA VACCINE (#1) 2025 , 06/19/2023, 06/06/2022, Additional history exists COVID-19 VACCINE (2023- season) 2025 08/10/2024, 06/19/2023, 06/06/2022, Additional history exists ZOSTER VACCINES Completed 02/12/2023, 10/20/2022 SMOKING STATUS SCREENING (Once After 26 Yrs) Completed 05/12/2025 HEPATITIS A VACCINES Aged Out No long er eligible based on patient's age to complete this topic HIB VACCINES Aged Out No longer eligi ble based on patient's age to complete this topic MENINGOCOCCAL VACCINES (ACWY) Aged Out No longer eligible based on patient's age to complete this topic MENINGOCOCCAL VACCINES (B) Aged Out N o longer eligible based on patient's age to complete this topic Medical Devices Not on file Procedures Procedure Name Priority Date/Time Associated Diagnosis Comments LACERATION REPAIR Routine 04/26/2025 4:2 1 PM EDT Noninfected skin tear of right leg, initial encounter from Last 3 Months Results * LACERATION REPAIR (04/26/2025 4:21 PM EDT) Other Narrative Lakeisha Mckeon CNP - 04/26/2025 4:21 PM EDT Lakeisha Mckeon CNP 04/26/2025 4:30 PM Laceration/Wound Repair Date/Time: 04/26/2025 4:21 PM Performed by: Lakeisha Mckeon CNP Authorized by: Lakeisha Mckeon CNP Injury: Laceration length (cm): 5 Foreign bodies: No foreign bodies Tendon involvement: None Nerve involvement: None Vascular damage?: No Patient sedated?: No Anesthesia: No Procedure Details: Irrigation solution: Saline Amount of cleaning: Standard Patient tolerance: Patient tolerated the procedure well with no immediate complications Wound was undressed and there is a V-shaped large skin tear with skin curled under at edges Skin is unfurled and put in proper anatomic position Patient tolerated well-covered with Xeroform, Telfa, gauze for padding and wrap Lakeisha Mckeon CNP PROCEDURE/MINOR SURGICAL OR DERABLES Final Result from Last 3 Months Insurance MEDICARE PART A & B Member Subscriber Plan / Payer (Ef fective 2012-Present) Name:Katheryn Ojeda Member ID:[id number] Relation to Subscriber:Self Name:Katheryn Ojeda Subscriber ID:[id number] Payer ID:[id number] Group ID:Not on file Type:Medicare Address: [employer] [facility] [address] [place] [address] [facility] MEDICARE REPLACEMENT MEDICARE PART A & B MEDICARE REPLACEMENT MEDICARE PART A & B MEDICARE PART A & B MEDICARE PART A & B MEDICARE REPLACEMENT MEDICARE PART A & B MEDICARE PART A & B MEDICARE REPLACEMENT MEDICARE PART A & B Member Subscriber Plan / Payer (Ef fective 2012-Present) Name:Katheryn Ojeda Member ID:[id number] Relation to Subscriber:Self Name:Katheryn Ojeda Subscriber ID:[id number] Payer ID:[id number] Group ID:Not on file Type:Medicare Address: [employer] [address] MEDICARE REPLACEMENT MEDICARE PART A & B Member Subscriber Plan / Payer (Ef fective 2012-Present) Name:Katheryn Ojeda Member ID:[id number] Relation to Subscriber:Self Name:Katheryn Ojeda Subscriber ID:[id number] Payer ID:[id number] Group ID:Not on file Type:Medicare Address: [employer] [address] [facility] MEDICARE REPLACEMENT Care Teams Component Assembler Supervisor Relationship Specialty Start Date End Date Otilio Damon MD [address] [place] [address] PCP - General Medical Oncology 12/06/20 Additional Source Comments The information contained in this document represents components of the legal health record. It is not the complete legal health record.[facility]
--- OUTSIDE RECORDS SUMMARY | 2025-05-15 12:16 | XMS_ITS | Encounter Summary ---
Author Organization [facility] Address [address] [facility] [address] [place] [address] Phone Care Team Providers Care Deputy Commonwealth'S Attorney Name Role Phone Otilio Damon MD Primary Care Provider +1- [phone] Encounter Details Date Type Department Care Team (Late st Contact Info) Description 07/18/2024 Procedure Pass [facility] [place] [address] [place] [address] Social History Tobacco Use Types Packs/Day Years Used Date Smoking Tobacco: Never Smokeless Tobacco: Never Alcohol Use Standard Drinks/Week Comments Never 0 [...] a working camera? Not on file Comments Unknown Sex and Gender Information Value Date Recorded Sex Assigned at Female 07/18/2024 4:00 PM EST Legal Sex Female 4:15 PM EDT Gender Identity Female 07/18/2024 4:00 PM EST Sexual Orientation Not on file documented as of this encounter Plan of Treatment Upcoming Encounters Date Type Department Care Team (Late st Contact Info) Description 07/06/2025 9:00 AM EST Office Visit [facility] [address], [address] [place] [address] Yaneth Silveira DNP [address] [facility], [address] [place] [address] [email or web address] documented as of this encounter Visit Diagnoses Not on filedocumented in this encounter Care Teams Deputy Commonwealth'S Attorney Relationship Specialty Start Date End Date Otilio Damon MD [address] [place] [address] PCP - General Medical Oncology 12/06/20 documented as of this encounter Additional Source Comments The information contained in this document represents components of the legal health record. It is not the complete legal health record.[facility]
--- OUTSIDE RECORDS SUMMARY | 2025-05-15 12:16 | XMS_ITS | Patient Health Record ---
Author Organization [facility] Address [address] [place] [address] Care Team Providers Care Munitions Factory Worker Name Role Phone Otilio Damon MD Primary Care Provider Unavailab Otilio Lucas Unavailable [phone] Reason For Referral No Information Medications Medication SIG (Take, Route, Frequency, Duration) Notes Start Date End Date Status Joint Health 750-375-30 MG 2 tablets wit h a meal Orally Once a day Active Atenolol 25 MG 1 tablet Orally BID Active Symbicort 160-4.5 MCG/ACT 2 puffs Inhala tion Twice a day Active Restasis 0.05 % 1 into affected eye Ophthalmic Twice a day Active CoQ-10 200 MG 1 capsule with a lucia l Orally Once a day Active Calcium & Magnesium Carbonates 311-232 MG Orally Active Calcium 500 MG 1 tablet with meals Orally Twice a day Active Multi Vitamin/Minerals 1 1 Orally qd Active Ocuvite 1 1 Orally qd Active Aspir-81 81 MG 1 tablet Orally TIW Active Vitamin D3 2000 UNIT 1 capsule Orally On ce a day Active Colyte w Flavor Packs 240 GM as directed Orally as directed for 1 day(s) 05/23/2015 Active Immunizations Vaccine Route Administration Date Status Comme nts Flu vaccine no Preserv 3 and > Unknown 05/23/2014 Admin istered Plan Of Treatment Future Test Test Name Order Date COLONOSCOPY 05/23/2015 Insurance Providers Payer Name Payer Address Payer Phone Subscriber Number Group Number Insured Name Patient Relationship to Insured Coverage Start Date Coverage End Date MEDICARE OF [place] [address] [place] [id number] RANDI YEAGER Self - patient is the insured [facility] [address] [place] [id number] RANDI EYAGER Self - patient is the insured Medical (General) History Medical History History ICD Code Screening Colonoscopy, 2004- - hyperpastic polyp, melanosis coli, diverticulosis, internal hemorrhoids. Denies IA,DM,CVA,renal disease Asthma Surgical History Surgery Date(Month/Year) Tubal ligation
--- OUTSIDE RECORDS SUMMARY | 2025-05-15 12:17 | XMS_ITS | Encounter Summary ---
Author Organization [facility] Address [address] [facility] [address] [place] [address] Phone Care Team Providers Care Epidemiology Investigator Name Role Phone Otilio Damon MD Primary Care Provider +1- [phone] Encounter Details Date Type Department Care Team (Late st Contact Info) Description 04/05/2025 Procedure Pass Event Monitor [address] [place] [address] Social History Tobacco Use Types [...] Description 07/06/2025 9:00 AM EST Office Visit [facility] [address], [address] [place] [address] Yaneth Silveira DNP [address] [facility], [address] [place] [address] [email or web address] documented as of this encounter Visit Diagnoses Not on filedocumented in this encounter Care Teams Epidemiology Investigator Relationship Specialty Start Date End Date Otilio Damon MD [address] [place] [address] PCP - General Medical Oncology 12/06/20 documented as of this encounter Additional Source Comments The information contained in this document represents components of the legal health record. It is not the complete legal health record.[facility]
--- OUTSIDE RECORDS SUMMARY | 2025-05-15 12:17 | XMS_ITS | Encounter Summary ---
Author Organization [facility] Address [address] [facility] [address] [place] [address] Phone Care Team Providers Care Sugar Mixer Name Role Phone Otilio Damon MD Primary Care Provider +1- [phone] Reason for Referral * MRI/CAT Scan - New Request Specialty Diagnoses / Procedures Referred By Contac t Referred To Contact Radiology Diagnoses Persistent atrial fibrillation Shortness of breath Procedures NC Myocardial Perfusion Pharmacologic Stress Multiple NC Myocardial Perfusion Exercise Multiple Marcelo Vann MD Phone: tel: fax: mailto:ana Referral ID Status Reason Start Date Expiration Date V isits Requested Visits Authorized [id number] New Request 07/18/2024 1 1 Encounter Details Date Type Department Care Team (Latest Contact Info) Description 08/09/2024 Ancillary Orders [facility] [address] [facility] 3rd Floor, [address] [place] [address] Marcelo Vann MD [address] [place] [address] [email or web address] Persistent atrial fibrillation (Primary Dx); Shortness of breath; Chronic anticoagulation Social History Tobacco Use Types Packs/Day Years [...] Description 07/06/2025 9:00 AM EST Office Visit [facility] [address] [facility] 3rd Floor, [address] [place] [id number] Yaneth Silveira DNP [address] [facility], [address] [place] [address] [email or web address] documented as of this encounter Results * NC Myocardial Perfusion Pharmacologic Stress Multiple (08/09/2024 11:06 AM EST) Max Predicted Heart Rate 144 bpm Stress/rest perfusion ratio 1.04 Nuc Stress EF 60 % SNMDIAVOL 102.0 mL SNMSYSVOL 41.0 mL Nuc Rest EF 63 % RNMDIAVOL 82.0 mL RNMSYSVOL 30.0 mL Anatomical Region Laterality Modality Heart, Vascular Ultrasound Narrative 08/09/2024 1:03 PM EST Myocardial perfusion stress test imaging report-normal No significant myocardial perfusion defects were seen at stress and at rest images Normal left ventricular systolic function. LV EF is 60% Conclusion; No ischemia or infarction seen Normal left ventricular systolic function. Stress Findings STRESS REPORT: DARRON PROTOCOL CONVERTED TO A WALKING REGADENOSON STUDY BMI: 24.30 Katheryn Perkins exercised for 3:25 min on a DARRON protocol at which time patient requested that exercise be terminated due to fatigue and dyspnea. Test was then converted to a pharmacologic test and was completed under walking Lexiscan protocol. 0.4 mg Regadenoson (lexiscan) given IV push over 10 seconds as per protocol immediately followed by injection of Tc99m Sestamibi by [facility] nuclear radiation engineer. 1. EKG - Baseline EKG showed sinus bradycardia. After the injection of Lexiscan, there were no EKG changes that met strict criteria for ischemia. 2. SYMPTOMS - Patient reported significant dyspnea during stage I into stage II of exercise. After test was converted to a pharmacologic test and Lexiscan was injected, patient experienced shortness of breath once again and also reported lightheadedness which did not spontaneously resolve. Aminophylline 75 mg was then administered IV with resolution of patient's symptoms. 3. PHYSIOLOGY - Resting HR was 55 bpm. After Lexiscan injection, HR 75 bpm. 4. ARRHYTHMIAS - Frequent isolated PVCs. Rare isolated PACs. During periods throughout testing, it was difficult to make out a clear P wave, however, at rest and upon discharge from the stress lab, P waves are more clearly visible. Conclusion - There were no ischemic EKG changes with pharmacologic testing. Frequent ventricular ectopy noted. Nuclear images pending and will be reported separately. See attached stress report for full details. Pamela Cai PA-C ECG NUCLEAR REPORT: TYPE OF STUDY: Myocardial Perfusion Imaging after a Walking Regadenoson protocol with gated SPECT. PROTOCOL USED: One day Regadenoson rest-stress protocol in the supine and prone position. Images were obtained in gated tomographic technique. Images were processed in SPECT format, reconstructed tomographically and compared [id number] in short axis, horizontal long axis and vertical long axis. DOSE: Technetium 99m Sestamibi 7.2 mCi injected intravenously in the right arm antecubital vein at rest on 08/09/2024 with post injection scan time of 60 minutes. Technetium 99m Sestamibi 21.9 mCi injected intravenously in the right arm antecubital vein after Regadenoson infusion on 08/09/2024 with post injection scan time of 40 minutes. Overall image quality is good. No motion artifact is present. Stress Function Defect Left ventricular global function is normal during stress. Stress ejection fraction is 60%. The stress end diastolic cavity size is normal. Stress end diastolic size: 102.0 mL. The stress end systolic cavity size is normal. Stress end systolic size: 41.0 mL. Rest Function Defect Left ventricular global function is normal at rest. Resting ejection fraction was 63%. The rest end diastolic cavity size is normal. Rest end diastolic size: 82.0 ml. The rest end systolic cavity size is normal. Rest end systolic size: 30.0 mL. Nuclear Prior Study There is no prior study available for comparison. Nuclear Ancillary Finding There is no evidence of transient ischemic dilation (TID). The TID ratio is 1.04, which is normal. Perfusion Scoring Resting Summed Score: 7 Percent Normal: 10.29% Moderate count reduction in the following segments: mid inferolateral and apical lateral. Mild count reduction in the following segments: apical septal, apical inferior and apex. All other segments are normal. SUPINE IMAGING REST Perfusion Scoring Stress Summed Score: 0 Percent Normal: 0.00% The left ventricular perfusion is normal. PRONE IMAGING STRESS Perfusion Scores: SRS Score: 7 Percentage Abnormal: 10.29% Perfusion Scores: SSS Score: 0 Percentage Abnormal: 0.00% Perfusion Scores: SDS Score: N/A Percentage Abnormal: N/A Procedure Note Braeden Matute MD - 08/09/2024 Myocardial perfusion stress test imaging report-normal No significant myocardial perfusion defects were seen at stress and atrest images Normal left ventricular systolic function. LV EF is 60% Conclusion; No ischemia or infarction seen Normal left ventricular systolic function. Marcelo Vann MD CV NM CARDIAC Final Result documented in this encounter Visit Diagnoses Diagnosis Shortness of breath- Primary Persistent atrial fibrillation Atrial fibrillation Persistent atrial fibrillation- Primary Atrial fibrillation Shortness of breath Chronic anticoagulation Encounter for long-term (current) use of anticoagulants documented in this encounter Care Teams Sugar Mixer Relationship Specialty Start Date End Date Otilio Damon MD [address] [place] [id number] PCP - General Medical Oncology 12/06/20 documented as of this encounter Additional Source Comments The information contained in this document represents components of the legal health record. It is not the complete legal health record.[facility]
--- OUTSIDE RECORDS SUMMARY | 2025-05-15 12:17 | XMS_ITS | Encounter Summary ---
Author Organization [facility] Address [address] [facility] [address] [place] [address] Phone Care Team Providers Care Real Estate Associate Name Role Phone Otilio Damon MD Primary Care Provider +1- [phone] Encounter Details Date Type Department Care Team (Late st Contact Info) Description 12/17/2023 Procedure Pass [facility] Cardiovascular And Interventional Radiology [address] [place] [address] Social History Tobacco Use Types Packs/Day Years [...] Encounters Date Type Department Care Team (Late Contact Info) Description 07/06/2025 9:00 AM EST Office Visit [facility] [address] [place] [address] 3rd Floor, [address] [place] [address] Yaneth Silveira DNP [address] [facility], [address] [place] [address] [email or web address] documented as of this encounter Visit Diagnoses Not on filedocumented in this encounter Care Teams Real Estate Associate Relationship Specialty Start Date End Date Otilio Damon MD [address] [place] [id number] PCP - General Medical Oncology 12/06/20 documented as of this encounter Additional Source Comments The information contained in this document represents components of the legal health record. It is not the complete legal health record.[facility]
--- OUTSIDE RECORDS SUMMARY | 2025-05-15 12:17 | XMS_ITS | Encounter Summary ---
Author Organization [facility] Address [address] [place] [address] Phone Care Team Providers Care Hand Cigar Maker Name Role Phone Otilio Damon MD Primary Care Provider [phone] Encounter Details Date Type Department Care Team (Latest Contact Info) Description 12/17/2023 Transcribe Orders Virtual Department [address] [place] [address] Jayesh Perkins MD [address], [address] [place] [address] [email or web address] Atrial fibrillation, unspecified type (Primary Dx) Social History Tobacco Use Types Packs/Day Years Used Date Smoking Tobacco: Never Assessed Education Answer Date Recorded Are you interested [...] Upcoming Encounters Date Type Department Care Team ( st Contact Info) Description 07/06/2025 9:00 AM EST Office Visit [facility] [address], [address] [place] [address] Yaneth Silveira DNP [address], [address] [place] [address] [email or web address] documented as of this encounter Results * CARDIOVERSION (01/22/2024 7:26 AM EDT) Anatomical Region Laterality Modality Ultrasound Narrative 01/22/2024 8:48 AM EDT Cardioversion UNIVERSAL PROTOCOL: Consent obtained: Yes Time out: Immediately prior to the procedure a time out was called A time out verifies correct patient, procedure, equipment, health support specialist and site/side marked as required. SEDATION: Patient sedated?: Yes Please see separate sedation documentation. PRE-PROCEDURE: Cardioversion basis: elective Elective indications: failure of anti-arrhythmic medications Pre-procedure rhythm: atrial flutter Electrodes: pads Electrodes placement: anterior-posterior ATTEMPT DETAILS: Number of attempts: 1 Attempt 1 mode: synchronous Attempt 1 waveform: biphasic Attempt 1 shock (Joules): 150 Attempt 1 outcome: conversion to normal sinus rhythm POST-PROCEDURE: Post-procedure rhythm: normal sinus rhythm Complications: no complications Patient tolerance: Patient tolerated the procedure well with no immediate complications us Jayesh Perkins MD [facility] ORDERABLE S Final Result documented in this encounter Visit Diagnoses Diagnosis Atrial fibrillation, unspecified type- Primary Atrial fibrillation, unspecified type documented in this encounter Care Teams Hand Cigar Maker Relationship Specialty Start Date End Date Otilio Damon MD [address] [place] [address] PCP - General Medical Oncology 12/06/20 documented as of this encounter Additional Source Comments The information contained in this document represents components of the legal health record. It is not the complete legal health record.[facility]
--- OUTSIDE RECORDS SUMMARY | 2025-05-15 12:18 | XMS_ITS | Patient Health Record ---
Author Organization [facility] Address [address] [place] [address] Care Team Providers Care Software Quality Specialist Name Role Phone Otilio Damon MD Primary Care Provider Unavailab Ariel Lorenzo Unavailable [phone] Allergies No Known Allergies Reason For Referral No Information Medications Medication SIG (Take, Route, Frequency, Duration) Notes Start Date End Date Status Metoprolol Tartrate 25 MG 1 tablet with food Orally Twice a day Active Cephalexin 500 MG 1 capsule Orally Thr ee times a day; Duration: 10 days Active Multaq Active Tylenol PM Extra Strength Active Thera Vital M Active Eliquis 5 MG as directed Orally Active Rosuvastatin Calcium 40 MG 1 tablet Orally Once a day Active Vitamin D3 Active Calcium Active Multi For Her Not-Ta mona Restasis 0.05 % INSTILL 1 DROP IN EA CH EYE TWICE A DAY Ophthalmic; Duration: 90 Not-Taking Atenolol 25 MG TAKE 1 TABLET BY JULI TWICE A DAY Oral; Duration: 90 Not-Taking Social History Tobacco Use: Social History Observation Description Date Details (start date - stop date) Never Smoker NA - NA Tobacco use other than smoking: Question Answer Notes Are you an other tobacco user? No Tobacco Control (Standard) Question Answer Notes Tobacco use: Nonsmoker Additional Findings: Tobacco non-user Current no nsmoker AUDIT-C (Standard) Question Answer Notes Did you have a drink containing alcohol in the p ast year? No Points 0 Interpretation Negative Vital Signs Blood pressure diastolic 60 mm Hg 05/09/2025 Height 5 ft 5 in in 05/09/2025 Blood pressure systolic 120 mm Hg 05/09/2025 Weight 138 lbs 05/09/2025 BMI 22.96 kg/m2 05/09/2025 Procedures Procedure Date Ordered Date Performed Result Body Sit e 97146-[id number] Plate 05/09/2025 N/A Encounters Encounter Location Date Provider Diagnosis [facility] [address] 01/03/2025 Ariel Bolton Cellulitis of toe of left foot L03.[address] [address] 05/09/2025 Ariel Bolton Ingrown nail L60.0 ; Pain in left toe(s) M79.675 and Cellulitis of toe of left foot L03.[address] [address] 05/08/2025 Ariel Bolton [address] [address] 05/09/2025 Ariel Bolton Assessments Encounter Date Diagnosis (ICD Code) Assessment Notes Treatment Notes Treatment Clinical Notes Section Notes 01/03/2025 Cellulitis of toe of left foot (ICD-10 - L03.032) 05/09/2025 Ingrown nail (ICD-10 - L60.0) Patient Educated with: WOUND CARE INSTRUCTIONS.p df (WOUND CARE INSTRUCTIONS.p df) 05/09/2025 Cellulitis of toe of left foot (ICD-10 - L03.032) 05/09/2025 Pain in left toe(s) (ICD-10 - M79.675) Plan Of Treatment Pending Test Test Name Order Date X ray : Ankle, left 2V 07/15/2017 X ray : Foot, left 2V 07/15/2017 X ray : Foot, right 2V 07/15/2017 [id number] Plate 05/09/2025 Insurance Providers Payer Name Payer Address Payer Phone Subscriber Number Group Number Insured Name Patient Relationship to Insured Coverage Start Date Coverage End Date [employer] Medicare-309 [address] [address] [place] [address] [phone] [id number] Katheryn Ojeda Self - patient is the insured Medical (General) History Medical History History ICD Code asthma Back,Hip,and Knee pain Hepatitis A Sciatica Measles covid-19 Heart disease Hepatitis Stroke Mumps Chicken pox Hypercholesterolemia Surgical History Surgery Date(Month/Year) tubal ligation tonsillectomy ablation 2023
--- OUTSIDE RECORDS SUMMARY | 2025-05-15 12:18 | XMS_ITS | Patient Health Record ---
Author Organization Otilio Damon III, MD Address [address] [place] [address] [address] [place] [address] Care Team Providers Care Secondary Market Manager Name Role Phone Otilio Damon Primary Care [...] 0.2 - 1.3 BLD Negative Negative - XR chest 2V Reviewed date:03/03/2025 07:27:48 PM Interpretation: Performing Lab: Notes/Report: [address] [address] XRay Report Signed Patient: Katheryn Cerna MR#: [id number] 543 : 1945 Acct:[id number] Age/Sex: 79 / F ADM Date: 09/02/24 Loc: [facility] Attending Dr: Otilio Damon MD Ordering Physician: Otilio Damon MD Date of Service: 09/02/24 Procedure(s): XR chest 2V Accession Number(s): [id number] cc: Otilio Damon MD CLINICAL HISTORY: ACUTE COUGH,CHEST CONGESTION 2 view chest x-ray. Comparison: CR/UT - XR CHEST 2V - 09/27/20 06:40 EST Findings: The lungs are adequately expanded. Minimal interstitial prominence. No focal confluent opacity. No effusion or pneumothorax. Cardiac and mediastinal contours are within normal limits. No acute osseous abnormality Impression: Minimal interstitial prominence. No focal consolidation. This document has been electronically signed by: Edy Mari MD on 09/02/2024 07:15:20 Dictated By: Edy Mari MD Signed By: <Electronically signed by Edy Mari MD in OV> 09/02/24 0716 DD/ 0715 TD/TT: 09/02/24714 Bag Builder: [address] [address] XRay Report Signed Patient: Jessie Cerna MR#: [id number] 543 : 1945 Acct:[id number] Age/Sex: 79 / F ADM Date: 09/02/24 Loc: MING Attending Dr: Otilio Damon MD Ordering Physician: Otilio Damon MD Date of Service: 09/02/24 Procedure(s): XR juan m st 2V Accession Number(s): [id number] cc: Otilio Damon MD CLINICAL HISTORY: ACUTE COUGH,CHEST CONGESTION 2 view chest x-ray. Comparison: CR/UT - XR CHEST 2V - 09/27/20 06:40 EST Findings: The lungs are adequately expanded. Minimal interstitial prominence. No focal confluent opacity. No effusion or pneumothorax. Cardiac and mediastinal contours are within normal limits. No acute osseous abnormality Impression: Minimal interstitial prominence. No focal consolidation. This document has be en electronically signed by: Edy Mari MD on 09/02/2024 07:15:20 Dictated By: Edy Mari MD Signed By: <Electronically signed by Edy Mari MD in OV> 09/02/24 0716 DD/ 4 TD/TT: 09/02/24714 Bag Builder: Complete Blood Count Auto Di ff (Not yet reviewed by provider) Interpretation: Performing Lab:[facility], [address] [place] [address] Notes/Report: White Blood Count 7.2 4.8-10.8 X10*3/uL Red Blood Count 4.14 4.20-5.50 X10*6/uL Hemoglobin 13.4 12.0-16.0 g/dl Hematocrit 39.6 37.0-47.0 % Mean Corpuscular Volume 95.7 80.0-98.0 fL Mean Corpuscular Hemoglobin 32.4 27.0-33.0 pg Mean Corpuscular HGB Conc 33.8 31.0-35.0 g/dl Red Cell Distribution Width 12.2 11.0-16.0 % Platelet Count 265 160-400 X10*3/uL Mean Platelet Volume 9.9 9.4-12.3 fL Neutrophils Percent Auto 58.5 45-73 % Imm Gran Pct Auto 0.4 0.0-0.4 % Lymphocytes Percent Auto 31.9 20-40 % Monocytes Percent Auto 7.0 2-11 % Eosinophils Percent Auto 1.2 0-4 % Basophils Percent Auto 1.0 0-2 % NRBC Pct Auto 0.0 0.0-0.2 /100WBC Neutrophils Absolute Auto 4.2 2.0-8.3 x10*3/uL Imm Gran Abs Auto 0.03 0.00-0.03 X10*3/uL Lymphocytes Absolute Auto 2.3 1.2-4.9 X10*3/uL Monocytes Absolute Auto 0.5 0.1-1.2 X10*3/uL Eosinophils Absolute Auto 0.1 0.0-0.4 X10*3/uL Basophils Absolute Auto 0.1 0.0-0.2 X10*3/uL NRBC Abs Auto 0.000 0.0-0.012 X10*3/uL Comprehensive [place]. Panel Fa st (Not yet reviewed by provider) Interpretation: Performing Lab:[facility], [address] [place] [address] Notes/Report: Sodium 139 135-145 mmol/L Potassium 4.3 3.3-5.1 mmol/L Chloride 108 96-108 mmol/L Carbon Dioxide 25 22-29 mmol/L Anion Gap 10 12-20 Blood Urea Nitrogen 17 9-16 mg/dL Creatinine 0.88 0.5-1.4 mg/dL Estimated Glomerular Filt Rate > 60 Chronic Kidney Disease: Estimated GFR < 60 mL/min/1.73m2 Severe Kidney Disease: Estimated GFR < 15 mL/min/1.73m2 Glucose Fasting 82 60-99 mg/dL Calcium 9.0 8.4-10.2 mg/dL Bilirubin Total 0.5 0.0-1.0 mg/dL Aspartate Amino Transferase 35 5-31 U/L Alanine Aminotransferase 26 0-31 U/L Total Protein 7.0 6.5-8.0 g/dL Albumin Level 4.0 3.5-5.0 g/dL Alkaline Phosphatase 92 39-117 U/L Lipid Panel (Not yet reviewe d by provider) Interpretation: Performing Lab:[facility], [address] [place] [address] Notes/Report: Triglycerides 48 <150 mg/dL Desirable Triglyceride: less than 150 mg/dL Borderline High Triglyceride 150-199 mg/dL High Triglyceride: 200-499 mg/dL Very High Triglyceride: greater than or equal to 5OO mg/dL Cholesterol 134 <200 mg/dL Desirable Cholesterol: less than 200 mg/dL Borderline High Cholesterol: 200-239 mg/dL High Cholesterol: greater than 239 mg/dL LDL Cholesterol Calculated 63 <100 mg/dL Desirable LDL: less than 100 mg/dL Near Optimal/Above Optimal LDL: 110-129 mg/dL Borderline High LDL: 130-159 mg/dL High LDL: 160-189 mg/dL Very High LDL: greater than or equal to 190 mg/dL HDL Cholesterol 62 >40 mg/dL Desirable HDL: greater than 40 mg/dL Note: This HDL assay may give artificially low results in patients with liver disease. Vitamin D 25-OH Total (Not y et reviewed by provider) Interpretation: Performing Lab:[facility], [address], [place] [address] Notes/Report: Vitamin D 25-OH Total 54.8 >30 ng/mL Health Based Reference Values* < 20 ng/mL Deficient 20-30 ng/mL Insufficient > 30 ng/mL Sufficient *Fernando LEA. N Engl J Med. 2007;357:266-280 There is no well-established upper level of normal vitamin D levels. Some laboratories use 50 ng/mL as an upper limit of normal. However, toxicity is patient-dependent and may occur at any level. Careful correlation with the patient's presentation is necessary and, if there is concern for vitamin D toxicity, treatment should be considered irrespective of the serum level. Care must be taken in interpreting Vitamin [...] Provider Speciality Internal M edicine Referred Provider [facility] [place] [place] ([place]) Referred Provider Specialty Dermatology General Notes Germaine Devries CM 05/17/2024 10:01:28 AM EDT > ref/demo/progress note faxed to JER[facility] pt stated she has been seen by Dr Miles before and she was told to call the office for Kayce kim Suzanne CMA 05/24/2024 02:54:09 PM EDT > Pt [...] A DAY WITH FOOD FOR 90 DAYS for 90 Active Vitamin D-[address] 25 MCG (1000 UT) TAKE 1 TABLET BY MOUTH EVERY DAY for 90 Active Therapeutic-M - TAKE 1 TABLET BY [...] day Active Hydrocortisone 1 % 1 application Mold Carrier ally Once a day 05/16/2024 Active Amiodarone HCl [...] Problem Status W/U Status Risk Notes Problem 795233140 Lumbar radiculopathy (M54.16) Active confirmed I recommended n o heavy lifting combined with rest meloxicam and feet. The back pain is minimal and only intermittent at this point. Problem 1203242 Supraventricular tachycardia (I47.1) Active confirmed She has a history of SVT and is seen by cardiology. Problem 484989334 Paroxysmal atria l fibrillation (I48.0) Active confirmed She is in fiorella l sinus rhythm today. She had a cardiac ablation procedure last week to control her Heart rate. Problem 967963268 Anticoagulated (Z79.01) Active confirmed She is taking 5 mg of Eliquis twice a day and has had no bleeding. She is compliant with this therapy. Problem Osteoporosis (39971523) Osteoporosis (M81.0) Active confirmed She is asymptomatic. A bone density test has been ordered. She will continue on current therapy now. Problem 11113530 Other and unspecified hyperlipidemia (E78.5) Active confirmed The most recent lipid profile showed good control of her lipids. Her weight is in the normal range. We discussed diet and nutrition. No change was made in her regimen. Problem 785363881 Onychomycosis (B35.1) Active confirmed Her toenails today recovered with nail burmese but she reports that the problem is mild and she does not require treatment at this time. Problem 44840811 Depressive disorder, not elsewhere classified (F32.9) Active confirmed Her depression is mild to moderate and she is discouraged at how long it is taking her to recover. No change in her regimen was necessary today. She is going to be observed frequently. Problem 641942591 Environmental allergies (Z91.09) Active confirmed We have discussed an approach to her allergy symptoms now that it is pollen season. I have recommended the use of antihistamines and fluticasone with pseudoephedrine. Problem Migraine (53094805) Migraine (G43.909) Active confirmed Her migraine headaches have been less frequent and are well controlled with Imitrex. No change in his regimen as needed. Problem 35744158 Vitamin D deficiency (E55.9) Active confirmed He was continue d on supplementation. Problem 80699513 Bilateral vitreous detachment (H43.813) Active confirmed She will continue under the care of her burlap bag sewer for this problem. 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 She has not noticed any change since the viral infection. 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 I recommended avoiding heavy lifting and straining. 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) Active confirmed [...] Date Provider Diagnosis Otilio Damon III, MD [address] [place] [address] [place] [address] 05/16/2024 Otilio Damon Thalamic infarct, ac gasper I63.81 ; Other and unspecified hyperlipidemia E78.5 ; Other secondary osteoarthritis of multiple sites M15.3 ; Vitamin D deficiency E55.9 ; Paroxysmal atrial fibrillation I48.0 ; Encounter for immunization Z23 ; Depressive disorder, not elsewhere classified F32.9 ; Conjunctival xerosis of both eyes H11.143 ; Osteoporosis M81.0 and SVT (supraventricular tachycardia) 427.89 Otilio Damon III, MD [address] [place] [address] [place] [address] 06/27/2024 Otilio Damon Thalamic infarct, ac gasper I63.81 ; Paroxysmal atrial fibrillation I48.0 ; Depressive disorder, not elsewhere classified F32.9 ; Onychomycosis B35.1 ; Conjunctival xerosis of both eyes H11.143 ; Displacement of cervical intervertebral disc without myelopathy M50.20 ; Other and unspecified hyperlipidemia E78.5 ; Lumbar radiculopathy M54.16 ; Osteoporosis M81.0 and Anticoagulated Z79.01 Otilio Damon III, MD [address] [place] [address] [place] [address] 07/19/2024 Otilio Damon Acute bronchitis, unspecified organism J20.9 ; Refractory chronic cough R05.3 ; Depressive disorder, not elsewhere classified F32.9 and Lumbar radiculopathy M54.16 Otilio Damon III, MD [address] [place] [address] [place] [address] 12/05/2024 Otilio Damon III, MD [address] [place] [address] [place] [address] 09/01/2024 Otilio Damon Acute cough R05.1 an d Chest congestion R09.89 Assessments Encounter Date Diagnosis (ICD Code) Assessment Notes T reatment Notes Treatment Clinical Notes 05/16/2024 Other and unspecified hyperlipidemia (ICD-10 - E78.5) The most recent [...] guaifenesinAC. 09/01/2024 Acute cough (ICD-10 - R05.1) 05/16/2024 Other secondary osteoarthritis of multiple sites [...] frequently. 09/01/2024 Chest congestion (ICD-10 - R09.89) 05/16/2024 Vitamin D deficiency (ICD-10 - E55.9) He was continued on supplementation. 06/27/2024 Onychomycosis (ICD-10 - B35.1) Her toenails today recovered with nail burmese but she reports that the problem is mild and she does not require treatment at this time. 07/19/2024 Lumbar radiculopathy (ICD-10 - M54.16) I recommended no heavy lifting combined with rest meloxicam and feet. The back pain is minimal and only intermittent at this point. 05/16/2024 Paroxysmal atrial fibrillation (ICD-10 - I48.0) [...] to be observed frequently. 06/27/2024 Other and unspecified hyperlipidemia (ICD-10 - E78.5) The most recent lipid profile showed good control of her lipids. Her weight is in the normal range. We discussed diet and nutrition. No change was made in her regimen. 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 She has not noticed any change since the viral infection. Vision is reported to be normal 06/27/2024 Lumbar radiculopathy (ICD-10 - M54.16) I recommended no heavy lifting combined with rest meloxicam and feet. The back pain is minimal and only intermittent at this point. 05/16/2024 Osteoporosis (ICD-10 - M81.0) She is asymptomatic. A bone density test has been ordered. She will continue on current therapy now. 06/27/2024 Osteoporosis (ICD-10 - M81.0) She is asymptomatic. A bone density test has been ordered. She will continue on current therapy now. 05/16/2024 SVT (supraventricular tachycardia) (ICD9-CM - 427.89) She has had [...] STICK 02/13/2020 PROFILE, FASTING (COMPREHENSIVE METABOLI C) 04/02/2023 PROFILE, FASTING (COMPREHENSIVE METABOLI C) 12/09/2017 PROFILE, FASTING (COMPREHENSIVE METABOLI C) 08/11/2023 PROFILE, FASTING (COMPREHENSIVE METABOLI C) 11/27/2020 PROFILE, FASTING (COMPREHENSIVE METABOLI C) 03/17/2017 PROFILE, FASTING (COMPREHENSIVE METABOLI C) 08/09/2018 PROFILE, FASTING (COMPREHENSIVE METABOLI C) 04/17/2020 PROFILE, FASTING (COMPREHENSIVE METABOLI C) 09/19/2019 PROFILE, FASTING (COMPREHENSIVE METABOLI C) 05/12/2023 PROFILE, FASTING (COMPREHENSIVE METABOLI C) 06/26/2020 PROFILE, FASTING (COMPREHENSIVE METABOLI C) 05/16/2024 PROFILE, FASTING (COMPREHENSIVE METABOLI C) 04/05/2018 PROFILE, FASTING (COMPREHENSIVE METABOLI C) 05/29/2021 PROFILE, FASTING (COMPREHENSIVE METABOLI C) 02/05/2024 PROFILE, FASTING (COMPREHENSIVE METABOLI C) 12/20/2018 PROFILE, RANDOM (COMPREHENSIVE METABOLIC ) 03/07/2015 HEMOGLOBIN A1C (GLYCOHEMOGLOBIN) 020 MAGNESIUM 04/05/2018 LIPID PANEL 04/05/2018 LIPID PANEL 12/20/2018 LIPID PANEL 04/02/2023 LIPID PANEL 12/09/2017 LIPID PANEL 03/07/2015 LIPID PANEL 11/27/2020 LIPID PANEL 03/17/2017 LIPID PANEL 08/09/2018 LIPID PANEL 04/17/2020 LIPID PANEL 09/19/2019 LIPID PANEL 05/12/2023 LIPID PANEL 06/26/2020 VITAMIN B12 AND FOLATE 04/17/2020 CBC w DIFF 04/17/2020 CBC w DIFF 05/29/2021 CBC w DIFF 04/05/2018 CBC w DIFF 12/20/2018 CBC w DIFF 04/02/2023 CBC w DIFF 12/09/2017 CBC w DIFF 12/10/2022 CBC w DIFF 11/27/2020 CBC w DIFF 03/07/2015 CBC w DIFF 03/17/2017 CBC w DIFF 08/09/2018 CBC w DIFF 05/16/2024 CBC w DIFF 09/19/2019 CBC w DIFF 05/12/2023 CBC w DIFF 06/26/2020 SED RATE (ESR) 04/17/2020 INFLUENZA SCREEN 12/13/2015 XR CHEST 2 VIEW PA & LAT 09/25/2020 BONE DENSITY DEXA 05/12/2023 MAMMOGRAM DIGITAL BILATERAL SCREEN 04/17 MAMMOGRAM DIGITAL BILATERAL SCREEN 05/08 MAMMOGRAM DIGITAL BILATERAL SCREEN 08/16 VITAMIN D 25-OH TOTAL 09/19/2019 CBC WITH AUTO DIFF 02/05/2024 CBC WITH AUTO DIFF 08/11/2023 SARS COV2 IGG 09/10/2020 Complete Blood Count Auto Diff Comprehensive [place]. Panel Fast Lipid Panel 05/16/2024 Lipid Panel 05/29/2021 Lipid Panel 02/05/2024 Lipid Panel 08/11/2023 Lipid Panel 05/15/2025 Vitamin D 25-OH Total 05/15/2025 Vitamin D 25-OH Total 05/16/2024 Vitamin D 25-OH Total 02/05/2024 ECG holter monitor 48 hour 12/10/2022 Next Appt Details Provider Name:Otilio Damon, 05/19/2025 10:00:00 AM, [address] [place] [address] [place]SHALL FLOR, KONRAD VIVEROS, [address], Insurance Providers Payer Name Payer Address Payer Phone Subscriber Number Group Number Insured Name Patient Relationship to Insured Coverage Start Date Coverage End Date [employer] Medicare Advantage [address] [address] [place] [address] [phone] [id number] Katheryn Cerna Self - patient is the insured MEDICARE NGS [address] [place] [phone] [id number] Katheryn Cerna Self - patient is the insured Medical (General) History Medical History History ICD Code depression onychomycosis asthma HNP, DJD, LSS osteopenia SVT vitreous detachment xerophthalmia Stroke 03/18/23 Surgical History Surgery Date(Month/Year) colonoscopy hyperplastic polyp 2005 Cardiac ablasion 05/2024 Cardiac ablation procedure [facility] [place] 05/2024 Ablation surgery Heart surgery Hospitalization History Reason Date(Month/Year) Covid-19 10/2019
== END 2025-05-15 09:55 | disposition home or self-care (01) ==
LOC: HO.LAB 09:54
PROVIDERS: PCP Internal Medicine Medical Oncology; Visit Provider Internal Medicine Medical Oncology
DX: Z00.00 Encounter for general adult medical examination without abnormal findings (principal); I63.81 Other cerebral infarction due to occlusion or stenosis of small artery; M15.3 Secondary multiple arthritis; E55.9 Vitamin D deficiency, unspecified; I48.0 Paroxysmal atrial fibrillation; E78.5 Hyperlipidemia, unspecified
CPT/HCPCS: 36415; 80053; 80061; 82306; 85025